=== PATIENT | female | born 1960 | race Caucasian/White ===

== ENCOUNTER 2017-03-21 21:04 | Emergency (ER) | payer MEDICARE, MEDICAID ==
[2017-03-21] MEDS ORDERED: Sodium Chloride 0.9% 10 ML Syringe FLUSH PRN (21:10)
[2017-03-21] MEDS ORDERED: Sodium Chloride 0.9% 1,000 ML IV SCH (21:15)
[2017-03-21 21:24] VITALS: BP 157/117
--- NOTE | 2017-03-21 21:40 | CT ---
Head CT Technique: Multiple axial sections through the brain were obtained. Intravenous contrast was not utilized. Comparison: Previous head CT study of 04/23/16. Findings: Ventricles along with basal cisterns and sulci over the convexities appear within normal limits for the patient's age. Mild diminished density is noted within the periventricular white matter compatible with small vessel ischemic demyelination change. Similar areas of low density are scattered within the basal ganglia. No other abnormal parenchymal densities are seen. No evidence of intracranial hemorrhage. No midline shift or mass effect is seen. Bone window settings were reviewed which shows mild mucosal thickening within the ethmoid and frontal sinuses. Soft tissue density is seen within a portion of the left side of the mastoid sinus. These findings are stable from previous head CT study and likely are chronic. No acute intracranial abnormality is appreciated. Impression: 1. Mild senescent change as described above. 2. Sinus findings which appears to be chronic. 3. Nothing acute is appreciated on noncontrast head CT study. Diagnostic code #2
[2017-03-21 22:41] LABS: ACETAMINOPHEN 0 ug/mL (10-30)
[2017-03-21] MEDS ORDERED: Levofloxacin/Dextrose 5%-Water 750 MG in Premix Bag 1 BAG IV ONE (23:25)
[2017-03-21] MEDS ORDERED: Albuterol/Ipratropium 3.0-0.5 MG/3 ML Neb Soln NEB ONE (23:26)
[2017-03-21] MEDS ORDERED: Iopamidol 755 Mg/ML 100 ML Bottle IVPUSH ONE (23:29)
[2017-03-21] MEDS ORDERED: Sodium Chloride 0.9% 10 ML Syringe FLUSH ONE (23:29)
[2017-03-21] MEDS ORDERED: Sodium Chloride 0.9% 100 ML IV SCH (23:30)
[2017-03-21] MEDS ORDERED: Sodium Chloride 0.9% 1,000 ML IV ONE (23:42)
--- NOTE | 2017-03-22 00:48 | EDM.PDOC ---
ED HPI GENERAL MEDICAL PROBLEM - General Chief Complaint: Neurological Problem Stated Complaint: [facility] Time Seen by Provider: 03/21/17 21:09 Source of Information: Reports: Patient, EMS, Family History Limitations: Reports: Other (Sleepy) - History of Present Illness INITIAL COMMENTS - FREE TEXT/NARRATIVE: The patient was last known well at 8am on 03/21/17. She has a history of a stroke and a AAA with repair. Her family went to check on her about 1pm today and she was very hard to arouse. This evening they tried again and she was very hard to arouse. The were concerned she had a stroke. They called EMS and [facility] brought her in. Her oxygen saturations were low and they put her on some oxygen. She has a wet cough. She has no fever. She is hard to arouse but when she is awakened she will answer all questions and follow commands. She has no chest pain but she does feel short of breath. She has some generalized abdominal pain. She has no nausea or vomiting. She has no pain with urination. Onset: Gradual Duration: Hour(s): Location: Reports: Generalized (weakness) Improves with: Reports: None Worsens with: Reports: None Associated Symptoms: Reports: Cough, cough w sputum, Shortness of Breath. Denies: Chest Pain, Fever/Chills, Loss of Appetite, Nausea/Vomiting - Related Data Allergies Allergy/AdvReac Type Severity Reaction Status Date / Time Penicillins Allergy Shortness Verified 03/22/17 01:58 of Breath Sulfa (Sulfonamide Allergy Rash Verified 03/22/17 01:58 Antibiotics) Home Meds: Home Meds amLODIPine Besylate [Amlodipine Besylate] 5 mg PO DAILY 03/25/15 [History] Gabapentin [Neurontin] 400 mg PO BID 06/22/15 [History] Losartan Potassium [Cozaar] 100 mg PO DAILY 06/22/15 [History] Potassium Chloride 10 meq PO BID 06/22/15 [History] Sertraline [Zoloft] 50 mg PO DAILY 06/22/15 [History] Solifenacin Succinate [Vesicare] 10 mg PO DAILY 06/22/15 [History] cloNIDine [Catapres-TTS 3] 0.3 mg TOP WEEKLY 06/22/15 [History] levETIRAcetam [Keppra] 250 mg PO DAILY 06/22/15 [History] Albuterol [Proventil HFA] 2 puff INH ASDIRECTED 03/21/17 [History] Baclofen 10 mg PO TID 03/21/17 [History] Clopidogrel [Plavix] 75 mg PO DAILY 03/21/17 [History] Doxycycline Monohydrate 100 mg PO DAILY 03/21/17 [History] Gabapentin [Neurontin] 800 mg PO BEDTIME 03/21/17 [History] Hydrocodone/Acetaminophen [Hydrocodon-Acetaminophn 10-325] 1 tab PO TID [History] Mirtazapine 30 mg PO BEDTIME 03/21/17 [History] Promethazine [Phenergan] 25 mg PO BID 03/21/17 [History] atorvaSTATin [Lipitor] 40 mg PO DAILY 03/21/17 [History] Past Medical History Other HEENT History: wears eyeglasses Cardiovascular History: Reports: Blood Clots/VTE/DVT, Hypertension Respiratory History: Reports: Bronchitis, Recurrent Other Respiratory History: Unable to assess as pt is unresponsive, this information entered by ED. Other OB/BYN History: Unable to assess as pt is unresponsive, this information entered by ED. Other Musculoskeletal History: Unable to assess as pt is unresponsive, this information entered by ED. Neurological History: Reports: Cerebral Aneurysms Other Neuro History: Unable to assess as pt is unresponsive, this information entered by ED. Psychiatric History: Reports: Depression Other Psychiatric History: Unable to assess as pt is unresponsive, this information entered by ED. Other Endocrine/Metabolic History: Unable to assess as pt is unresponsive, this information entered by ED. Other Hematologic History: Unable to assess as pt is unresponsive, this information entered by ED. Other Immunologic History: Unable to assess as pt is unresponsive, this information entered by ED. Other Dermatologic History: Unable to assess as pt is unresponsive, this information entered by ED. - Infectious Disease History Infectious Disease History: Reports: MRSA - Past Surgical History Other Respiratory Surgeries/Procedures: Unable to assess as pt is unresponsive, this information entered by ED. GI Surgical History: Reports: Other (See Below) Other GI Surgeries/Procedures: mesh surgery Musculoskeletal Surgical History: Reports: Other (See Below) Other Musculoskeletal Surgeries/Procedures:: surgery to ankle Other Oncologic Surgeries/Procedures: Unable to assess as pt is unresponsive, this information entered by ED. Social & Family History - Tobacco Use Smoking Status *Q: Current Every Day Smoker Years of Tobacco use: 30 Packs/Tins Daily: 0.5 Used Tobacco, but Quit: No - Caffeine Use Caffeine Use: Reports: None - Recreational Drug Use Recreational Drug Use: No ED ROS GENERAL - Review of Systems Review Of Systems: See Below Constitutional: Reports: Weakness. Denies: Fever, Chills HEENT: Reports: No Symptoms Respiratory: Reports: Shortness of Breath, Cough Cardiovascular: Reports: No Symptoms Endocrine: Reports: No Symptoms GI/Abdominal: Reports: No Symptoms : Reports: No Symptoms Musculoskeletal: Reports: No Symptoms Skin: Reports: No Symptoms Neurological: Reports: Weakness (Generalized) - Physical Exam Exam: See Below Exam Limited By: No Limitations General Appearance: Other (Sleepy but she will arouse and answer questions) Ears: Normal External Exam Nose: Normal Inspection Head Exam: Atraumatic, Normocephalic Neck: Normal Inspection Respiratory/Chest: No Respiratory Distress, Rhonchi Cardiovascular: Regular Rate, Rhythm, No Edema, No Murmur GI/Abdominal: Soft, Non-Tender, No Organomegaly, No Mass Neuro Exam (Abbreviated): Other (Sleepy) EKG INTERPRETATION EKG Date: 03/22/17 Time: 21:08 Rhythm: NSR Rate (beats/min): 85 Lulu: LAD-left axis deviation P-wave: present QRS: normal ST-T: normal QT: normal Course - Vital Signs Last Recorded V/S: Last Vital Signs Temp 98.7 F 03/21/17 21:06 Pulse 87 03/21/17 21:06 Resp 18 03/21/17 21:06 BP 157/117 H 03/21/17 21:06 Pulse Ox 95 03/21/17 23:36 - Orders/Labs/Meds Orders: Active Orders 24 hr Category Date Time Status Cardiac Monitoring [RC] . DIRECTED Care 03/21/17 21:10 Active EKG Documentation Completion [RC] STAT Care 03/21/17 21:11 Active Oxygen Therapy [RC] PRN Care 03/21/17 21:10 Active Peripheral IV Care [RC] . DIRECTED Care 03/21/17 21:11 Active RT Aerosol Therapy [RC] ASDIRECTED Care 03/21/17 23:26 Active Chest 1V Frontal [CR] Stat Exams 03/21/17 21:12 Taken Chest Abdomen Pelvis w Cont [CT] Stat Exams 03/21/17 22:58 Taken CULTURE BLOOD [BC] Stat Lab 03/21/17 23:40 Received CULTURE BLOOD [BC] Stat Lab 03/21/17 23:40 Received Sodium Chloride 0.9% [Normal Saline] 1,000 ml Med 03/21/17 21:15 Active IV ASDIRECTED Sodium Chloride 0.9% [Normal Saline] 100 ml Med 03/21/17 23:30 Active IV ASDIRECTED Sodium Chloride 0.9% [Saline Flush] Med 03/21/17 21:10 Active 10 ml FLUSH ASDIRECTED PRN Blood Culture x2 Reflex Set [OM.PC] Stat Oth 03/21/17 23:25 Ordered Peripheral IV Insertion Adult [OM.PC] Stat Oth 03/21/17 21:10 Ordered Medication Orders Sodium Chloride (Normal Saline) 1,000 mls @ 125 mls/hr IV ASDIRECTED VIKAS Last Admin: 03/21/17 22:23 Dose: 125 mls/hr Sodium Chloride (Normal Saline) 100 mls @ 60 mls/hr IV ASDIRECTED VIKAS Last Admin: 03/22/17 00:11 Dose: 60 mls/hr Sodium Chloride (Saline Flush) 10 ml FLUSH ASDIRECTED PRN PRN Reason: Keep Vein Open Last Admin: 03/21/17 22:23 Dose: 10 ml Labs: Laboratory Tests 03/21/17 03/21/17 03/21/17 Range/Units 21:30 22:05 22:15 WBC 11.83 H (3.98-10.04) K/mm3 RBC 4.64 (3.98-5.22) M/mm3 Hgb 13.8 (11.2-15.7) gm/L Hct 43.4 (34.1-44.9) % MCV 93.5 (79.4-94.8) fl MCH 29.7 (25.6-32.2) pg MCHC 31.8 L (32.2-35.5) g/dl RDW Std Deviation 48.1 H (36.4-46.3) fL Plt Count 209 (182-369) K/mm3 MPV 11.2 (9.4-12.3) fl Neut % (Auto) 83.0 H (34.0-71.1) % Lymph % (Auto) 9.5 L (19.3-51.7) % Holt % (Auto) 5.7 (4.7-12.5) % Eos % (Auto) 1.4 (0.7-5.8) Baso % (Auto) 0.1 (0.1-1.2) % Neut # (Auto) 9.82 H (1.56-6.13) K/mm3 Lymph # (Auto) 1.12 L (1.18-3.74) K/mm3 Holt # (Auto) 0.68 H (0.24-0.36) K/mm3 Eos # (Auto) 0.17 (0.04-0.36) K/mm3 Baso # (Auto) 0.01 (0.01-0.08) K/mm3 Manual Slide Review Abnormal smear Sodium 145 (136-145) mEq/L Potassium 4.0 (3.5-5.1) mEq/L Chloride 108 H (98-107) mEq/L Carbon Dioxide 24 (21-32) mEq/L Anion Gap 17.0 H (5-15) BUN 28 H (7-18) mg/dL Creatinine 1.2 H (0.55-1.02) mg/dL Est Cr Clr Drug Dosing TNP Estimated GFR (MDRD) 46 (>60) mL/min BUN/Creatinine Ratio 23.3 H (14-18) Glucose 105 (74-106) mg/dL POC Glucose 94 (70-105) mg/dL Lactic Acid (0.4-2.0) mmol/L Calcium 9.4 (8.5-10.1) mg/dL Total Bilirubin 0.3 (0.2-1.0) mg/dL AST 11 L (15-37) U/L ALT 13 L (14-59) U/L Alkaline Phosphatase 148 H (46-116) U/L Troponin I < 0.017 (0.00-0.056) ng/mL B-Natriuretic Peptide (0-100) pg/mL Total Protein 8.3 H (6.4-8.2) g/dl Albumin 3.5 (3.4-5.0) g/dl Globulin 4.8 gm/dL Albumin/Globulin Ratio 0.7 L (1-2) Urine Color (Yellow) Urine Appearance (Clear) Urine pH (5.0-8.0) Ur Specific [address] (1.005-1.030) Urine Protein (Negative) Urine Glucose (UA) (Negative) Urine Ketones (Negative) Urine Occult Blood (Negative) Urine Nitrite (Negative) Urine Bilirubin (Negative) Urine Urobilinogen (0.2-1.0) Ur Leukocyte Esterase (Negative) Urine RBC (0-5) /hpf Urine WBC (0-5) /hpf Ur Epithelial Cells (0-5) /hpf Urine Bacteria (FEW) /hpf Urine Mucus (FEW) /hpf Salicylates (2.8-20) mg/dL Urine Opiates Screen (NEGATIVE) Ur Buprenorphine Scrn (NEGATIVE) Ur Oxycodone Screen (NEGATIVE) Urine Methadone Screen (NEGATIVE) Ur Propoxyphene Screen (NEGATIVE) Acetaminophen 0 L (10-30) ug/mL Ur Barbiturates Screen (NEGATIVE) Ur Tricyclics Screen (NEGATIVE) Ur Phencyclidine Scrn (NEGATIVE) Ur Amphetamine Screen (NEGATIVE) U Methamphetamines Scrn (NEGATIVE) U Benzodiazepines Scrn (NEGATIVE) U Cocaine Metab Screen (NEGATIVE) U Marijuana (THC) Screen (NEGATIVE) Ethyl Alcohol 0.00 (0.00) gm% 03/21/17 03/21/17 03/21/17 Range/Units 22:15 22:15 22:15 WBC (3.98-10.04) K/mm3 RBC (3.98-5.22) M/mm3 Hgb (11.2-15.7) gm/L Hct (34.1-44.9) % MCV (79.4-94.8) fl MCH (25.6-32.2) pg MCHC (32.2-35.5) g/dl RDW Std Deviation (36.4-46.3) fL Plt Count (182-369) K/mm3 MPV (9.4-12.3) fl Neut % (Auto) (34.0-71.1) % Lymph % (Auto) (19.3-51.7) % Holt % (Auto) (4.7-12.5) % Eos % (Auto) (0.7-5.8) Baso % (Auto) (0.1-1.2) % Neut # (Auto) (1.56-6.13) K/mm3 Lymph # (Auto) (1.18-3.74) K/mm3 Holt # (Auto) (0.24-0.36) K/mm3 Eos # (Auto) (0.04-0.36) K/mm3 Baso # (Auto) (0.01-0.08) K/mm3 Manual Slide Review Sodium (136-145) mEq/L Potassium (3.5-5.1) mEq/L Chloride (98-107) mEq/L Carbon Dioxide (21-32) mEq/L Anion Gap (5-15) BUN (7-18) mg/dL Creatinine (0.55-1.02) mg/dL Est Cr Clr Drug Dosing Estimated GFR (MDRD) (>60) mL/min BUN/Creatinine Ratio (14-18) Glucose (74-106) mg/dL POC Glucose (70-105) mg/dL Lactic Acid 1.5 (0.4-2.0) mmol/L Calcium (8.5-10.1) mg/dL Total Bilirubin (0.2-1.0) mg/dL AST (15-37) U/L ALT (14-59) U/L Alkaline Phosphatase (46-116) U/L Troponin I (0.00-0.056) ng/mL B-Natriuretic Peptide 29 (0-100) pg/mL Total Protein (6.4-8.2) g/dl Albumin (3.4-5.0) g/dl Globulin gm/dL Albumin/Globulin Ratio (1-2) Urine Color (Yellow) Urine Appearance (Clear) Urine pH (5.0-8.0) Ur Specific [address] (1.005-1.030) Urine Protein (Negative) Urine Glucose (UA) (Negative) Urine Ketones (Negative) Urine Occult Blood (Negative) Urine Nitrite (Negative) Urine Bilirubin (Negative) Urine Urobilinogen (0.2-1.0) Ur Leukocyte Esterase (Negative) Urine RBC (0-5) /hpf Urine WBC (0-5) /hpf Ur Epithelial Cells (0-5) /hpf Urine Bacteria (FEW) /hpf Urine Mucus (FEW) /hpf Salicylates 7.8 (2.8-20) mg/dL Urine Opiates Screen (NEGATIVE) Ur Buprenorphine Scrn (NEGATIVE) Ur Oxycodone Screen (NEGATIVE) Urine Methadone Screen (NEGATIVE) Ur Propoxyphene Screen (NEGATIVE) Acetaminophen (10-30) ug/mL Ur Barbiturates Screen (NEGATIVE) Ur Tricyclics Screen (NEGATIVE) Ur Phencyclidine Scrn (NEGATIVE) Ur Amphetamine Screen (NEGATIVE) U Methamphetamines Scrn (NEGATIVE) U Benzodiazepines Scrn (NEGATIVE) U Cocaine Metab Screen (NEGATIVE) U Marijuana (THC) Screen (NEGATIVE) Ethyl Alcohol (0.00) gm% 03/21/17 03/21/17 Range/Units 22:24 22:24 WBC (3.98-10.04) K/mm3 RBC (3.98-5.22) M/mm3 Hgb (11.2-15.7) gm/L Hct (34.1-44.9) % MCV (79.4-94.8) fl MCH (25.6-32.2) pg MCHC (32.2-35.5) g/dl RDW Std Deviation (36.4-46.3) fL Plt Count (182-369) K/mm3 MPV (9.4-12.3) fl Neut % (Auto) (34.0-71.1) % Lymph % (Auto) (19.3-51.7) % Holt % (Auto) (4.7-12.5) % Eos % (Auto) (0.7-5.8) Baso % (Auto) (0.1-1.2) % Neut # (Auto) (1.56-6.13) K/mm3 Lymph # (Auto) (1.18-3.74) K/mm3 Holt # (Auto) (0.24-0.36) K/mm3 Eos # (Auto) (0.04-0.36) K/mm3 Baso # (Auto) (0.01-0.08) K/mm3 Manual Slide Review Sodium (136-145) mEq/L Potassium (3.5-5.1) mEq/L Chloride (98-107) mEq/L Carbon Dioxide (21-32) mEq/L Anion Gap (5-15) BUN (7-18) mg/dL Creatinine (0.55-1.02) mg/dL Est Cr Clr Drug Dosing Estimated GFR (MDRD) (>60) mL/min BUN/Creatinine Ratio (14-18) Glucose (74-106) mg/dL POC Glucose (70-105) mg/dL Lactic Acid (0.4-2.0) mmol/L Calcium (8.5-10.1) mg/dL Total Bilirubin (0.2-1.0) mg/dL AST (15-37) U/L ALT (14-59) U/L Alkaline Phosphatase (46-116) U/L Troponin I (0.00-0.056) ng/mL B-Natriuretic Peptide (0-100) pg/mL Total Protein (6.4-8.2) g/dl Albumin (3.4-5.0) g/dl Globulin gm/dL Albumin/Globulin Ratio (1-2) Urine Color Yellow (Yellow) Urine Appearance Clear (Clear) Urine pH 5.5 (5.0-8.0) Ur Specific [address] 1.020 (1.005-1.030) Urine Protein Negative (Negative) Urine Glucose (UA) Negative (Negative) Urine Ketones Negative (Negative) Urine Occult Blood Negative (Negative) Urine Nitrite Negative (Negative) Urine Bilirubin Negative (Negative) Urine Urobilinogen 0.2 (0.2-1.0) Ur Leukocyte Esterase Negative (Negative) Urine RBC Not seen (0-5) /hpf Urine WBC 0-5 (0-5) /hpf Ur Epithelial Cells 0-5 (0-5) /hpf Urine Bacteria Few (FEW) /hpf Urine Mucus Few (FEW) /hpf Salicylates (2.8-20) mg/dL Urine Opiates Screen Presumptive positive H (NEGATIVE) Ur Buprenorphine Scrn Negative (NEGATIVE) Ur Oxycodone Screen Negative (NEGATIVE) Urine Methadone Screen Negative (NEGATIVE) Ur Propoxyphene Screen Negative (NEGATIVE) Acetaminophen (10-30) ug/mL Ur Barbiturates Screen Negative (NEGATIVE) Ur Tricyclics Screen Negative (NEGATIVE) Ur Phencyclidine Scrn Negative (NEGATIVE) Ur Amphetamine Screen Negative (NEGATIVE) U Methamphetamines Scrn Negative (NEGATIVE) U Benzodiazepines Scrn Negative (NEGATIVE) U Cocaine Metab Screen Negative (NEGATIVE) U Marijuana (THC) Screen Negative (NEGATIVE) Ethyl Alcohol (0.00) gm% Meds: Medications Generic Name Dose Route Start Last Admin Trade Name Freq PRN Reason Stop Dose Admin Sodium Chloride 1,000 mls @ 125 mls/hr 03/21/17 21:15 03/21/17 22:23 Normal Saline IV 125 mls/hr ASDIRECTED VIKAS Administration Sodium Chloride 100 mls @ 60 mls/hr 03/21/17 23:30 03/22/17 00:11 Normal Saline IV 60 mls/hr ASDIRECTED VIKAS Administration Sodium Chloride 10 ml 03/21/17 21:10 03/21/17 22:23 Saline Flush FLUSH 10 ml ASDIRECTED PRN Administration Keep Vein Open Discontinued Medications Generic Name Dose Route Start Last Admin Trade Name Ivon PRN Reason Stop Dose Admin Albuterol/Ipratropium 3 ml 03/21/17 23:26 03/21/17 23:36 Duoneb 3.0-0.5 Mg/3 Ml NEB 03/21/17 23:27 3 ml ONETIME ONE Administration Levofloxacin/Dextrose 750 mg/ 150 mls @ 100 mls/hr 03/21/17 23:25 03/22/17 00 :23 Premix IV 03/22/17 00:54 100 mls/hr ONETIME ONE Administration Sodium Chloride 1,000 mls @ 1,000 mls/hr 03/21/17 23:42 03/22/17 00:22 Normal Saline IV 03/22/17 00:41 1,000 mls/hr ONETIME ONE Administration Iopamidol 100 ml 03/21/17 23:29 03/22/17 00:11 Isovue-370 (76%) IVPUSH 03/21/17 23:30 100 ml ONETIME ONE Administration Sodium Chloride 10 ml 03/21/17 23:29 03/22/17 00:11 Saline Flush FLUSH 03/21/17 23:30 10 ml ONETIME ONE Administration - Re-Assessments/Exams Free Text/Narrative Re-Assessment/Exam: 03/22/17 00:51 I ordered an IV NS bolus, EKG, CXR, CT of the head, labs and UA. 03/22/17 03:35 Her EKG shows a NSR with no acute changes. Her CXR shows an infiltrate in the left lower lung. Her WBC was elevated at 11.83. I ordered blood cultures, duo neb and levaquin 750mg IV. The CT of her head shows mild senscent changes, sinus findings which appear to be chronic, and nothing acute is appreciated on noncontrast head CT study. Her creatinine was slightly elevated at 1.2. Her anion gap was 17. Her Alk Phos was elevated at 148. Her troponin was negative. Her UA shows no UTI. Her UDS was positive for opiates. She is on hydrocodone. Her ETOH was negative. Her salicylates were negative. I am concerned about her aorta because of the abdominal pain. I ordered a CT angio of her aorta. The CT angio of her abdomen and pelvis shows saccular aneurysmal dilatation of the suprarenal abdominal aorta. 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 There is a Fem-Fem bypass graft with reconstitution of flow within the right common femoral artery. Compression fracture of the superior endplate of L1. Incomplete urinary bladder distention with prominent wall. Correlation for cystitis. She does have bilateral pulses in both feet that are weak and she has warm legs. She has bilateral weakness in both legs. The CT angio of her chest shows aneurysmal enlargement of the thoracic aorta at the level of the oartic arch which measures up to 4.6cm. Aneurysmal enlargement of the descending thoracic aorta which measures up to 6.7cm in maximal AP dimension with large amount of intramural thrombus. Dimensions are significantly increased compared to the prior study from 03/25/2015. This puts the patient at increased risk of rupture and dissection. Peripheral inerstitial fibrosis with possible mild pulmonary edema versus multifocal pneumonia. Compression fractures of the superior endplate of T5 and T7. Her BPs did go down a few times when she was here. The lowest was 76 systolic. She did respond to fluids and her BP now is 116/89. I feel she needs to be admitted. I called [facility] in [place] and Dr Israel accepted the patient. 03/22/17 04:02 Departure - Departure Time of Disposition: 04:00 Disposition: DC/Tfer to Acute Hospital 02 Condition: serious Clinical Impression: Thrombus of aorta, Bilateral leg weakness Pneumonia Qualifiers: Pneumonia type: due to unspecified organism Laterality: left Lung location: lower lobe of lung Qualified Code(s): J18.1 - Lobar pneumonia, unspecified organism Thoracic aortic aneurysm Qualifiers: Presence of rupture: without rupture Qualified Code(s): I71.2 - Thoracic aortic aneurysm, without rupture Altered mental state Qualifiers: Altered mental status type: somnolence Qualified Code(s): R40.0 - Somnolence - Discharge Information Forms: ED Department Discharge - My Orders Last 24 Hours: My Active Orders 03/21/17 21:10 Cardiac Monitoring [RC] . DIRECTED Oxygen Therapy [RC] PRN Sodium Chloride 0.9% [Saline Flush] 10 ml FLUSH ASDIRECTED PRN Peripheral IV Insertion Adult [OM.PC] Stat 03/21/17 21:11 EKG Documentation Completion [RC] STAT Peripheral IV Care [RC] . DIRECTED 03/21/17 21:12 Chest 1V Frontal [CR] Stat 03/21/17 21:15 Sodium Chloride 0.9% [Normal Saline] 1,000 ml IV ASDIRECTED 03/21/17 22:58 Chest Abdomen Pelvis w Cont [CT] Stat 03/21/17 23:25 Blood Culture x2 Reflex Set [OM.PC] Stat 03/21/17 23:26 RT Aerosol Therapy [RC] ASDIRECTED 03/21/17 23:30 Sodium Chloride 0.9% [Normal Saline] 100 ml IV ASDIRECTED 03/21/17 23:40 CULTURE BLOOD [BC] Stat CULTURE BLOOD [BC] Stat - Assessment/Plan Last 24 Hours: My Active Orders 03/21/17 21:10 Cardiac Monitoring [RC] . DIRECTED Oxygen Therapy [RC] PRN Sodium Chloride 0.9% [Saline Flush] 10 ml FLUSH ASDIRECTED PRN Peripheral IV Insertion Adult [OM.PC] Stat 03/21/17 21:11 EKG Documentation Completion [RC] STAT Peripheral IV Care [RC] . DIRECTED 03/21/17 21:12 Chest 1V Frontal [CR] Stat 03/21/17 21:15 Sodium Chloride 0.9% [Normal Saline] 1,000 ml IV ASDIRECTED 03/21/17 22:58 Chest Abdomen Pelvis w Cont [CT] Stat 03/21/17 23:25 Blood Culture x2 Reflex Set [OM.PC] Stat 03/21/17 23:26 RT Aerosol Therapy [RC] ASDIRECTED 03/21/17 23:30 Sodium Chloride 0.9% [Normal Saline] 100 ml IV ASDIRECTED 03/21/17 23:40 CULTURE BLOOD [BC] Stat CULTURE BLOOD [BC] Stat
--- NOTE | 2017-03-23 07:40 | CT ---
CT chest Technique: Multiple axial sections were obtained from above the lung apices inferiorly through the lung bases. Intravenous contrast was utilized. Study performed as an aortic dissection protocol. Comparison: Previous chest CT performed as a pulmonary angiogram protocol dated 03/25/15. Findings: Mild diffuse aneurysmal dilatation of the ascending aorta is seen with AP dimension up to 4.3 cm. Slightly asymmetric aneurysmal dilatation at the aortic arch is seen with maximum measurement of 4.6 cm. Distal thoracic aorta shows aneurysmal dilatation with mural clot. This aneurysm measures 6.6 cm. Aneurysm measurements have increased from previous chest CT. No dissection is seen. Several small mediastinal lymph nodes are seen which appear stable. Mild coronary artery calcification is seen. No pericardial effusion is seen. Right hilar lymph node is seen which is believed to be stable. Stable 7 mm nodule within the left upper chest from prior exam which is likely incidental. Diffuse interstitial changes are seen within the lungs believed to represent fibrosis. Several slight compression deformities within the thoracic spine which appear to be old. Impression: 1. Increasing thoracic aortic aneurysm when compared to prior chest CT of 03/25/15. Maximum aneurysmal dilatation of the descending aorta is 6.6 cm. This measured 5.5 cm on prior study. 2. Interstitial changes within both lungs most likely representing fibrosis although difficult to exclude mild superimposed pulmonary vascular congestion. 3. No dissection is seen within the aneurysm at this time. Diagnostic code #5 Agree with preliminary report issued by [employer] (preliminary report dictated on 03/22/17, 3:19 AM Central Time) CT abdomen and pelvis Technique: Multiple axial sections were obtained from above the liver inferiorly through the pubic symphysis. Intravenous contrast was utilized. No oral contrast has been given. Comparison: Previous CT abdomen and pelvis exam of 12/31/13 is available. Findings: Aorta at the diaphragmatic hiatus measures 4.2 cm. On previous study this measures about 3.7 cm in similar measurement plane. Mid aorta measures about 3.9 cm. This measures approximately 2.9 cm on previous study. Distal aorta measures 3.4 cm comparing to 3.2 cm on prior study. 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 There is a femorofemoral graft from the left side. No dissection is seen. Liver is mostly in a noncontrast appearance given the arterial contrast. No discrete abnormality seen within the liver. Spleen appears within normal limits. Adrenal glands show no nodule. Kidneys show vascular calcification with symmetric contrast enhancement. No hydronephrosis or mass is seen. Pancreas appears within normal limits. Gallbladder shows no calcified gallstones. No retroperitoneal adenopathy or mesenteric abnormalities are seen. No pelvic mass or adenopathy is seen. Previous abdominal wall surgery is seen. Appendix is visualized and is unremarkable. Degenerative change scattered within the spine. Moderate compression deformity is seen of L1 which is an interval change from prior CT exam. Impression: 1. Diffuse aneurysmal dilatation of the abdominal aorta. Measurements have increased in size from prior CT exam. 2. Compression deformity of L1 which is an interval change from prior exam. 3. Other incidental findings. Diagnostic code #3 I agree with preliminary report issued by [employer] (preliminary report dictated on 03/22/17, 3:56 AM Central Time)
--- NOTE | 2017-03-23 07:40 | CR ---
Chest: Portable view of the chest was obtained. Comparison: Previous chest x-ray of 04/24/16. Tortuous thoracic aorta is seen. Lung markings increased which appear to be chronic. No acute infiltrates are seen. Heart is enlarged. Bony structures are osteopenic. Impression: 1. Increased lung markings believed to be chronic. Nothing acute is definitely seen on portable chest x-ray. Diagnostic code #2
== END 2017-03-22 04:08 ==
LOC: JD.ED 21:04
DX: I71.2 Thoracic aortic aneurysm, without rupture (principal); R40.0 Somnolence; R53.1 Weakness; F17.210 Nicotine dependence, cigarettes, uncomplicated; F32.9 Major depressive disorder, single episode, unspecified; J18.1 Lobar pneumonia, unspecified organism; I10 Essential (primary) hypertension; Z88.0 Allergy status to penicillin; Z88.2 Allergy status to sulfonamides; Z79.899 Other long term (current) drug therapy
CPT/HCPCS: 36415; 70450; 71010; 71260; 74177; 80053; 80306; 81001; 82962; 83605; 83880; 84484; 85025; 87040; 93005; 94664; 96361; 96365; 96366; 99285; G0480; J1956; J7030; J7040; J7050; P9612; Q9967; 99284

== ENCOUNTER 2018-01-06 14:12 | Inpatient (IN) | payer MEDICARE, MEDICAID ==
[~2018-01-06 14:12] MED LIST: Modafinil 200 MG Tab PO ONE
[2018-01-06] MEDS ORDERED: Sodium Chloride 0.9% 10 ML Syringe FLUSH PRN (14:24)
[2018-01-06] MEDS ORDERED: Albuterol/Ipratropium 3.0-0.5 MG/3 ML Neb Soln NEB ONE (14:27)
[2018-01-06] MEDS ORDERED: Sodium Chloride 0.9% 1,000 ML IV SCH (14:30)
--- NOTE | 2018-01-06 14:30 | EDM.PDOC ---
ED HPI GENERAL MEDICAL PROBLEM - General Chief Complaint: Respiratory Problem Stated Complaint: [facility] Time Seen by Provider: 01/06/18 14:24 Source of Information: Reports: EMS History Limitations: Reports: Altered Mental Status - History of Present Illness INITIAL COMMENTS - FREE TEXT/NARRATIVE: The patient presents by [facility]. They intercepted with family members who had the patient in a vehicle. The family found her unresponsive at her home. When EMS intercepted the patient would moan to pain but then would answer some questions. When she arrived here she would not talk much, she would follow minimal commands. She could move all 4 extremities. She was just discharged last week from our hospital for pneumonia and sepsis. Her oxygen saturations were low when they picked her up. Onset: Gradual Duration: Hour(s): Severity: Moderate Improves with: Reports: None Worsens with: Reports: None Associated Symptoms: Reports: Confusion, Cough, Shortness of Breath. Denies: Fever/Chills, Nausea/Vomiting - Related Data Allergies Allergy/AdvReac Type Severity Reaction Status Date / Time Penicillins Allergy Shortness Verified 01/06/18 14:36 of Breath Sulfa (Sulfonamide Allergy Rash Verified 01/06/18 14:36 Antibiotics) Home Meds: Home Meds amLODIPine Besylate [Amlodipine Besylate] 5 mg PO DAILY 03/25/15 [History] Gabapentin [Neurontin] 400 mg PO 0800,1700 06/22/15 [History] Losartan Potassium [Cozaar] 100 mg PO DAILY 06/22/15 [History] Potassium Chloride 10 meq PO BID 06/22/15 [History] Solifenacin Succinate [Vesicare] 10 mg PO BEDTIME 06/22/15 [History] cloNIDine [Catapres-TTS 3] 0.3 mg TOP SA 06/22/15 [History] levETIRAcetam [Keppra] 250 mg PO BID 06/22/15 [History] Baclofen 10 mg PO TID 03/21/17 [History] Clopidogrel [Plavix] 75 mg PO DAILY 03/21/17 [History] Gabapentin [Neurontin] 600 mg PO QID 03/21/17 [History] Hydrocodone/Acetaminophen [Hydrocodon-Acetaminophn 10-325] 1 tab PO TID [History] Mirtazapine 30 mg PO BEDTIME 03/21/17 [History] Promethazine [Phenergan] 25 mg PO BID PRN 03/21/17 [History] atorvaSTATin [Lipitor] 40 mg PO DAILY 03/21/17 [History] Albuterol [Proventil HFA] 2 puff INH QID PRN 12/29/17 [History] Fluticasone/Salmeterol [Advair 250-50] 1 inh INH BID 12/29/17 [History] L.acidoph,Paracasei, B.lactis [Probiotic] 1 tab PO DAILY 12/29/17 [History] Loratadine 10 mg PO BEDTIME 12/29/17 [History] Polyethylene Glycol 3350 [Miralax] 17 gm PO DAILY PRN 12/29/17 [History] Tiotropium [Spiriva HandiHaler] 1 cap INH DAILY 12/29/17 [History] Levofloxacin [Levaquin] 750 mg PO DAILY 5 Days #5 tab 01/02/18 [Rx] Doxycycline [Doxycycline Monohydrate] 100 mg PO BID 01/06/18 [History] Sertraline HCl [Zoloft] 50 mg PO DAILY 01/06/18 [History] tiZANidine [Zanaflex] 4 mg PO ASDIRECTED 01/06/18 [History] Past Medical History Other HEENT History: wears eyeglasses Cardiovascular History: Reports: Blood Clots/VTE/DVT, Hypertension Respiratory History: Reports: Bronchitis, Recurrent, COPD, Croup, Pneumonia, Recurrent, SOB Other Respiratory History: Unable to assess as pt is unresponsive, this information entered by ED. Gastrointestinal History: Reports: GERD Genitourinary History: Reports: None Other OB/BYN History: Unable to assess as pt is unresponsive, this information entered by ED. Other Musculoskeletal History: Unable to assess as pt is unresponsive, this information entered by ED. Neurological History: Reports: Cerebral Aneurysms, CVA Other Neuro History: Unable to assess as pt is unresponsive, this information entered by ED. Psychiatric History: Reports: Depression Other Psychiatric History: Unable to assess as pt is unresponsive, this information entered by ED. Endocrine/Metabolic History: Reports: None Other Endocrine/Metabolic History: Unable to assess as pt is unresponsive, this information entered by ED. Hematologic History: Reports: None Other Hematologic History: Unable to assess as pt is unresponsive, this information entered by ED. Immunologic History: Reports: None Other Immunologic History: Unable to assess as pt is unresponsive, this information entered by ED. Oncologic (Cancer) History: Reports: None Dermatologic History: Reports: None Other Dermatologic History: Unable to assess as pt is unresponsive, this information entered by ED. - Infectious Disease History Infectious Disease History: Reports: MRSA - Past Surgical History GI Surgical History: Reports: Other (See Below) Other GI Surgeries/Procedures: mesh surgery Musculoskeletal Surgical History: Reports: Other (See Below) Other Musculoskeletal Surgeries/Procedures:: surgery to ankle Social & Family History - Tobacco Use Smoking Status *Q: Current Every Day Smoker Years of Tobacco use: 25 Packs/Tins Daily: 1 Used Tobacco, but Quit: No Second Hand Smoke Exposure: No - Caffeine Use Caffeine Use: Reports: None - Recreational Drug Use Recreational Drug Use: No ED ROS GENERAL - Review of Systems Review Of Systems: Unable To Obtain ED EXAM, GENERAL - Physical Exam Exam: See Below Exam Limited By: No Limitations General Appearance: Lethargic Ears: Normal External Exam Nose: Normal Inspection Head: Atraumatic, Normocephalic Neck: Normal Inspection Respiratory/Chest: No Respiratory Distress, Wheezing Cardiovascular: Regular Rate, Rhythm, No Edema, No Murmur GI/Abdominal: Soft, Non-Tender, No Organomegaly, No Mass Back Exam: Normal Inspection Extremities: Normal Inspection Neurological: Other (The patient was lethargic but she will now answer questions. She will also follow commands. She moves all 4 extremities.) EKG INTERPRETATION EKG Date: 01/06/18 Time: 14:21 Rhythm: NSR Rate (Beats/Min): 70 [place]: Normal P-Wave: Present QRS: Normal ST-T: Other (Flattened T waves in the anterolateral leads) QT: Normal Course - Vital Signs Last Recorded V/S: Last Vital Signs Temp 98.1 F 01/06/18 14:25 Pulse 78 01/06/18 14:25 Resp 24 H 01/06/18 14:25 BP 125/101 H 01/06/18 14:25 Pulse Ox 95 01/06/18 16:51 - Orders/Labs/Meds Orders: Active Orders 24 hr Category Date Time Status Cardiac Monitoring [RC] . DIRECTED Care 01/06/18 14:24 Active EKG Documentation Completion [RC] STAT Care 01/06/18 14:25 Active Oxygen Therapy [RC] PRN Care 01/06/18 14:24 Active Peripheral IV Care [RC] . DIRECTED Care 01/06/18 14:25 Active RT Aerosol Therapy [RC] ASDIRECTED Care 01/06/18 14:27 Active Chest 1V Frontal [CR] Stat Exams 01/06/18 14:25 Taken CULTURE BLOOD [BC] Stat Lab 01/06/18 16:55 Received CULTURE BLOOD [BC] Stat Lab 01/06/18 17:05 Received Sodium Chloride 0.9% [Normal Saline] 1,000 ml Med 01/06/18 14:30 Active IV ASDIRECTED Sodium Chloride 0.9% [Saline Flush] Med 01/06/18 14:24 Active 10 ml FLUSH ASDIRECTED PRN Blood Culture x2 Reflex Set [OM.PC] Stat Oth 01/06/18 16:12 Ordered Peripheral IV Insertion Adult [OM.PC] Stat Oth 01/06/18 14:24 Ordered Medication Orders Sodium Chloride (Normal Saline) 1,000 mls @ 125 mls/hr IV ASDIRECTED VIKAS Last Admin: 01/06/18 15:43 Dose: 125 mls/hr Sodium Chloride (Saline Flush) 10 ml FLUSH ASDIRECTED PRN PRN Reason: Keep Vein Open Last Admin: 01/06/18 15:44 Dose: 10 ml Labs: Laboratory Tests 01/06/18 01/06/18 01/06/18 Range/Units 14:30 14:30 14:30 WBC 10.92 H (3.98-10.04) K/mm3 RBC 3.49 L (3.98-5.22) M/mm3 Hgb 10.6 L (11.2-15.7) gm/L Hct 34.3 (34.1-44.9) % MCV 98.3 H (79.4-94.8) fl MCH 30.4 (25.6-32.2) pg MCHC 30.9 L (32.2-35.5) g/dl RDW Std Deviation 50.4 H (36.4-46.3) fL Plt Count 293 (182-369) K/mm3 MPV 10.9 (9.4-12.3) fl Neut % (Auto) 74.3 H (34.0-71.1) % Lymph % (Auto) 17.2 L (19.3-51.7) % [place] % (Auto) 5.2 (4.7-12.5) % Eos % (Auto) 2.0 (0.7-5.8) Baso % (Auto) 0.1 (0.1-1.2) % Neut # (Auto) 8.11 H (1.56-6.13) K/mm3 Lymph # (Auto) 1.88 (1.18-3.74) K/mm3 [place] # (Auto) 0.57 H (0.24-0.36) K/mm3 Eos # (Auto) 0.22 (0.04-0.36) K/mm3 Baso # (Auto) 0.01 (0.01-0.08) K/mm3 Manual Slide Review Abnormal smear Puncture Site ABG pH (7.35-7.45) ABG pCO2 (35.0-45.0) mmHg ABG pO2 (80.0-100.0) mmHg ABG HCO3 (22.0-26.0) meq/L ABG O2 Saturation (96.0-97.0) % ABG Base Excess (-2-2.0) A-a Gradient mmHg O2 Delivery Device Oxygen Flow Rate FiO2 (21.00-100.00) % Sodium 140 (136-145) mEq/L Potassium 3.9 (3.5-5.1) mEq/L Chloride 104 (98-107) mEq/L Carbon Dioxide 24 (21-32) mEq/L Anion Gap 15.9 H (5-15) BUN 20 H (7-18) mg/dL Creatinine 1.0 (0.55-1.02) mg/dL Est Cr Clr Drug Dosing 58.11 mL/min Estimated GFR (MDRD) 57 (>60) mL/min BUN/Creatinine Ratio 20.0 H (14-18) Glucose 89 (74-106) mg/dL Calcium 8.7 (8.5-10.1) mg/dL Total Bilirubin 0.3 (0.2-1.0) mg/dL AST 20 (15-37) U/L ALT 29 (14-59) U/L Alkaline Phosphatase 130 H (46-116) U/L Troponin I < 0.017 (0.00-0.056) ng/mL C-Reactive Protein 19.3 H* (<1.0) mg/dL Total Protein 7.3 (6.4-8.2) g/dl Albumin 2.3 L (3.4-5.0) g/dl Globulin 5.0 gm/dL Albumin/Globulin Ratio 0.5 L (1-2) Urine Color (Yellow) Urine Appearance (Clear) Urine pH (5.0-8.0) Ur Specific [place] (1.005-1.030) Urine Protein (Negative) Urine Glucose (UA) (Negative) Urine Ketones (Negative) Urine Occult Blood (Negative) Urine Nitrite (Negative) Urine Bilirubin (Negative) Urine Urobilinogen (0.2-1.0) Ur Leukocyte Esterase (Negative) Urine RBC (0-5) /hpf Urine WBC (0-5) /hpf Ur Epithelial Cells (0-5) /hpf Urine Bacteria (FEW) /hpf Urine Mucus (FEW) /hpf Urine Opiates Screen (NEGATIVE) Ur Buprenorphine Scrn (NEGATIVE) Ur Oxycodone Screen (NEGATIVE) Urine Methadone Screen (NEGATIVE) Ur Propoxyphene Screen (NEGATIVE) Ur Barbiturates Screen (NEGATIVE) Ur Tricyclics Screen (NEGATIVE) Ur Phencyclidine Scrn (NEGATIVE) Ur Amphetamine Screen (NEGATIVE) U Methamphetamines Scrn (NEGATIVE) U Benzodiazepines Scrn (NEGATIVE) U Cocaine Metab Screen (NEGATIVE) U Marijuana (THC) Screen (NEGATIVE) Ethyl Alcohol 0.00 (0.00) gm% 01/06/18 01/06/18 01/06/18 Range/Units 15:28 16:17 16:17 WBC (3.98-10.04) K/mm3 RBC (3.98-5.22) M/mm3 Hgb (11.2-15.7) gm/L Hct (34.1-44.9) % MCV (79.4-94.8) fl MCH (25.6-32.2) pg MCHC (32.2-35.5) g/dl RDW Std Deviation (36.4-46.3) fL Plt Count (182-369) K/mm3 MPV (9.4-12.3) fl Neut % (Auto) (34.0-71.1) % Lymph % (Auto) (19.3-51.7) % [place] % (Auto) (4.7-12.5) % Eos % (Auto) (0.7-5.8) Baso % (Auto) (0.1-1.2) % Neut # (Auto) (1.56-6.13) K/mm3 Lymph # (Auto) (1.18-3.74) K/mm3 [place] # (Auto) (0.24-0.36) K/mm3 Eos # (Auto) (0.04-0.36) K/mm3 Baso # (Auto) (0.01-0.08) K/mm3 Manual Slide Review Puncture Site Rt radial ABG pH 7.44 (7.35-7.45) ABG pCO2 36.0 (35.0-45.0) mmHg ABG pO2 54.0 L (80.0-100.0) mmHg ABG HCO3 23.8 (22.0-26.0) meq/L ABG O2 Saturation 89.0 L (96.0-97.0) % ABG Base Excess 0.3 (-2-2.0) A-a Gradient 81 mmHg O2 Delivery Device Nasal cannula Oxygen Flow Rate 1.5 FiO2 26.00 (21.00-100.00) % Sodium (136-145) mEq/L Potassium (3.5-5.1) mEq/L Chloride (98-107) mEq/L Carbon Dioxide (21-32) mEq/L Anion Gap (5-15) BUN (7-18) mg/dL Creatinine (0.55-1.02) mg/dL Est Cr Clr Drug Dosing mL/min Estimated GFR (MDRD) (>60) mL/min BUN/Creatinine Ratio (14-18) Glucose (74-106) mg/dL Calcium (8.5-10.1) mg/dL Total Bilirubin (0.2-1.0) mg/dL AST (15-37) U/L ALT (14-59) U/L Alkaline Phosphatase (46-116) U/L Troponin I (0.00-0.056) ng/mL C-Reactive Protein (<1.0) mg/dL Total Protein (6.4-8.2) g/dl Albumin (3.4-5.0) g/dl Globulin gm/dL Albumin/Globulin Ratio (1-2) Urine Color Yellow (Yellow) Urine Appearance Clear (Clear) Urine pH 6.0 (5.0-8.0) Ur Specific [place] 1.015 (1.005-1.030) Urine Protein Negative (Negative) Urine Glucose (UA) Negative (Negative) Urine Ketones Negative (Negative) Urine Occult Blood Negative (Negative) Urine Nitrite Negative (Negative) Urine Bilirubin Negative (Negative) Urine Urobilinogen 0.2 (0.2-1.0) Ur Leukocyte Esterase Negative (Negative) Urine RBC Not seen (0-5) /hpf Urine WBC Not seen (0-5) /hpf Ur Epithelial Cells 0-5 (0-5) /hpf Urine Bacteria Not seen (FEW) /hpf Urine Mucus Not seen (FEW) /hpf Urine Opiates Screen Presumptive positive H (NEGATIVE) Ur Buprenorphine Scrn Negative (NEGATIVE) Ur Oxycodone Screen Negative (NEGATIVE) Urine Methadone Screen Negative (NEGATIVE) Ur Propoxyphene Screen Negative (NEGATIVE) Ur Barbiturates Screen Negative (NEGATIVE) Ur Tricyclics Screen Negative (NEGATIVE) Ur Phencyclidine Scrn Negative (NEGATIVE) Ur Amphetamine Screen Negative (NEGATIVE) U Methamphetamines Scrn Negative (NEGATIVE) U Benzodiazepines Scrn Presumptive positive H (NEGATIVE) U Cocaine Metab Screen Negative (NEGATIVE) U Marijuana (THC) Screen Negative (NEGATIVE) Ethyl Alcohol (0.00) gm% Meds: Medications Generic Name Dose Route Start Last Admin Trade Name Freq PRN Reason Stop Dose Admin Sodium Chloride 1,000 mls @ 125 mls/hr 01/06/18 14:30 01/06/18 15:43 Normal Saline IV 125 mls/hr ASDIRECTED VIKAS Administration Sodium Chloride 10 ml 01/06/18 14:24 01/06/18 15:44 Saline Flush FLUSH 10 ml ASDIRECTED PRN Administration Keep Vein Open Discontinued Medications Generic Name Dose Route Start Last Admin Trade Name Freq PRN Reason Stop Dose Admin Albuterol/Ipratropium 3 ml 01/06/18 14:27 01/06/18 14:33 Duoneb 3.0-0.5 Mg/3 Ml NEB 01/06/18 14:28 3 ml ONETIME ONE Administration Albuterol/Ipratropium Confirm 01/06/18 14:34 01/06/18 14:33 Duoneb 3.0-0.5 Mg/3 Ml Administered 01/06/18 14:35 Not Given Dose 3 ml .ROUTE .STK-MED ONE Ceftriaxone Sodium 2 gm/ 100 mls @ 100 mls/hr 01/06/18 16:12 01/06/18 16:17 Sodium Chloride IV 01/06/18 17:11 100 mls/hr ONETIME ONE Administration - Re-Assessments/Exams Free Text/Narrative Re-Assessment/Exam: 01/06/18 17:41 I ordered an IV NS, EKG, CT of her head and labs. I also ordered a breathing treatment. Her EKG shows a NSR with some flattened T waves. Her CT shows senescent change. Motion artifact is present. Nothing acute is definitely identified on noncontrast head CT. Her WBC was elevated at 10.92. Her Hgb was low at 10.6. He pH was normal at 7.44. Her pO2 was 54. Her anion gap is elevated at 15.9. Her alk phos was elevated at 130. Her CRP was elevated at 19.3. Her UA shows no UTI. Her UDS was positive for opiates and benzos and her ETOH was negative. Her CXR shows a possible infiltrate in the left lung. I ordered blood cultures X 2 and rocephin 2 grams IV. I feels she needs to be admitted. I called Dr Aldrich and he agreed to the admission. Departure - Departure Time of Disposition: 18:00 Disposition: Admitted As Inpatient 66 Condition: Poor Clinical Impression: Hypoxia Failure to thrive Qualifiers: Failure to thrive age range: in adult Qualified Code(s): R62.7 - Adult failure to thrive COPD (chronic obstructive pulmonary disease) Qualifiers: COPD type: unspecified COPD Qualified Code(s): J44.9 - Chronic obstructive pulmonary disease, unspecified Pneumonia Qualifiers: Pneumonia type: due to unspecified organism Laterality: left Lung location: lower lobe of lung Qualified Code(s): J18.1 - Lobar pneumonia, unspecified organism Altered mental status Qualifiers: Altered mental status type: somnolence Qualified Code(s): R40.0 - Somnolence - Discharge Information - My Orders Last 24 Hours: My Active Orders 01/06/18 14:24 Cardiac Monitoring [RC] . DIRECTED Oxygen Therapy [RC] PRN Sodium Chloride 0.9% [Saline Flush] 10 ml FLUSH ASDIRECTED PRN Peripheral IV Insertion Adult [OM.PC] Stat 01/06/18 14:25 EKG Documentation Completion [RC] STAT Peripheral IV Care [RC] . DIRECTED Chest 1V Frontal [CR] Stat 01/06/18 14:27 RT Aerosol Therapy [RC] ASDIRECTED 01/06/18 14:30 Sodium Chloride 0.9% [Normal Saline] 1,000 ml IV ASDIRECTED 01/06/18 16:12 Blood Culture x2 Reflex Set [OM.PC] Stat 01/06/18 16:55 CULTURE BLOOD [BC] Stat 01/06/18 17:05 CULTURE BLOOD [BC] Stat - Assessment/Plan Last 24 Hours: My Active Orders 01/06/18 14:24 Cardiac Monitoring [RC] . DIRECTED Oxygen Therapy [RC] PRN Sodium Chloride 0.9% [Saline Flush] 10 ml FLUSH ASDIRECTED PRN Peripheral IV Insertion Adult [OM.PC] Stat 01/06/18 14:25 EKG Documentation Completion [RC] STAT Peripheral IV Care [RC] . DIRECTED Chest 1V Frontal [CR] Stat 01/06/18 14:27 RT Aerosol Therapy [RC] ASDIRECTED 01/06/18 14:30 Sodium Chloride 0.9% [Normal Saline] 1,000 ml IV ASDIRECTED 01/06/18 16:12 Blood Culture x2 Reflex Set [OM.PC] Stat 01/06/18 16:55 CULTURE BLOOD [BC] Stat 01/06/18 17:05 CULTURE BLOOD [BC] Stat
[2018-01-06] MEDS ORDERED: Albuterol/Ipratropium 3.0-0.5 MG/3 ML Neb Soln ONE (14:34)
--- NOTE | 2018-01-06 15:08 | CT ---
Head CT Technique: Multiple axial sections through the brain were obtained. Intravenous contrast was not utilized. Comparison: Prior head CT exam of 12/29/17. Findings: Ventricles along with basal cisterns and sulci over convexities are mildly prominent. Diminished density is noted within the periventricular and subcortical white matter as well as within the basal ganglia compatible with small vessel ischemic demyelination change. No other abnormal parenchymal densities are seen. Motion artifact persisted despite scan being repeated. No intracranial hemorrhage is seen. No midline shift or mass effect is seen. Bone window settings were reviewed which shows atherosclerotic calcification within the carotid siphon. No acute calvarial abnormality is appreciated. Impression: 1. Senescent change as noted above. Motion artifact is present. 2. Nothing acute is definitely identified on noncontrast head CT exam. Diagnostic code #2
[2018-01-06] MEDS ORDERED: cefTRIAXone 2 GM in Sodium Chloride 0.9% 100 ML IV ONE (16:12)
--- NOTE | 2018-01-06 19:11 | PCM.HP ---
H&P History of Present Illness - General Date of Service: 01/06/18 Admit Problem/Dx: Admission Diagnosis/Problem Admission Diagnosis/Problem Altered mental status Source of Information: Patient, Old Records, Provider, RN Notes Reviewed History Limitations: Reports: Altered Mental Status - History of Present Illness Initial Comments - Free Text/Narative: This is a 57 yo white female with past medical hx/o HTN, HLD, Asthma, Advanced COPD, ILD/Pulmonary Fibrosis, GERD, Anemia, Abdominal/Thoracic Aneurysm, Hx/o CVA, Chronic Pain Syndrome, OAB/Urge Incontinence, Neuropathy, Nicotine Dependence, Recent UTI, and Depression who was brought in by EMS due to AMS. Patient was not able to provide HPI due to AMS. Her family found her unresponsive at home. When EMS arrived, she would moan/ groan and answers some questions. However in ED, she would follow minimal commands and able to move all four extremities. Her initial work up in ED shows a CBC remarkable for WBC of 10.92, RBC of 3.49, hemoglobin of 10.6, MCV of 98.3, MCH of 30.9, RDW of 15.4, neutrophils of 74.3% and lymphocytes of 17.2%. Her ABG shows a pH of 7.44, PCO2 of 36, PO2 of 54, HCO3 of 22.8, O2 saturation of 89%, on 1.5 L nasal cannula with FiO2 of 26%. Her chemistry is remarkable for anion gap of 15.9, BUN of 20, alkaline phosphatase of 130, CRP of 19.3, and albumin of 2.3. Her UA is negative for urinary tract infection. Her UDS is positive for opiates and benzodiazepine. Her SAJI is 0. Her chest x-ray shows diffuse interstitial change without acute abnormal findings. Her head CT scan shows no acute intracranial abnormality. Patient is being admitted for altered mental status. She is full code. - Related Data Allergies/Adverse Reactions: Allergies Allergy/AdvReac Type Severity Reaction Status Date / Time Penicillins Allergy Shortness Verified 01/06/18 14:36 of Breath Sulfa (Sulfonamide Allergy Rash Verified 01/06/18 14:36 Antibiotics) Home Medications: Home Meds amLODIPine Besylate [Amlodipine Besylate] 5 mg PO DAILY 03/25/15 [History] Gabapentin [Neurontin] 400 mg PO 0800,1700 08/13/15 [History] Losartan Potassium [Cozaar] 100 mg PO DAILY 06/22/15 [History] Potassium Chloride 10 meq PO BID 06/22/15 [History] Solifenacin Succinate [Vesicare] 10 mg PO BEDTIME 06/22/15 [History] cloNIDine [Catapres-TTS 3] 0.3 mg TOP SA 06/22/15 [History] levETIRAcetam [Keppra] 250 mg PO BID 06/22/15 [History] Baclofen 10 mg PO TID 03/21/17 [History] Clopidogrel [Plavix] 75 mg PO DAILY 03/21/17 [History] Gabapentin [Neurontin] 800 mg PO BEDTIME 03/21/17 [History] Hydrocodone/Acetaminophen [Hydrocodon-Acetaminophn 10-325] 1 tab PO TID [History] Mirtazapine 30 mg PO BEDTIME 03/21/17 [History] atorvaSTATin [Lipitor] 40 mg PO DAILY 03/21/17 [History] Albuterol [Proventil HFA] 2 puff INH QID PRN 12/29/17 [History] Fluticasone/Salmeterol [Advair 250-50] 1 inh INH BID 12/29/17 [History] L.acidoph,Paracasei, B.lactis [Probiotic] 1 tab PO DAILY 12/29/17 [History] Loratadine 10 mg PO BEDTIME 12/29/17 [History] Polyethylene Glycol 3350 [Miralax] 17 gm PO DAILY PRN 12/29/17 [History] Tiotropium [Spiriva HandiHaler] 1 cap INH DAILY 12/29/17 [History] Doxycycline [Doxycycline Monohydrate] 100 mg PO BID 01/06/18 [History] Sertraline HCl [Zoloft] 50 mg PO DAILY 01/06/18 [History] tiZANidine [Zanaflex] 4 mg PO ASDIRECTED 01/06/18 [History] Past Medical History Other HEENT History: wears eyeglasses Cardiovascular History: Reports: Blood Clots/VTE/DVT, Hypertension Respiratory History: Reports: Bronchitis, Recurrent, COPD, Croup, Pneumonia, Recurrent, SOB Other Respiratory History: unknown, patient is unresponsive, using information from previous chart Gastrointestinal History: Reports: GERD Genitourinary History: Reports: None Other OB/BYN History: unable to assess with patient being unresponsive. Other Musculoskeletal History: unable to assess with patient being unresponsive. Neurological History: Reports: Cerebral Aneurysms, CVA Other Neuro History: taken from previous chart Psychiatric History: Reports: Depression Other Psychiatric History: obtained from previous chart Endocrine/Metabolic History: Reports: None Other Endocrine/Metabolic History: unable to assess going off of previous chart , patient is unresponsive. Hematologic History: Reports: None Other Hematologic History: Unable to assess as pt is unresponsive, this information entered by ED. Immunologic History: Reports: None Other Immunologic History: Unable to assess as pt is confused, Oncologic (Cancer) History: Reports: None Dermatologic History: Reports: None Other Dermatologic History: Unable to assess as pt is unresponsive, this information entered by ED. - Infectious Disease History Infectious Disease History: Reports: MRSA - Past Surgical History GI Surgical History: Reports: Other (See Below) Other GI Surgeries/Procedures: mesh surgery Musculoskeletal Surgical History: Reports: Other (See Below) Other Musculoskeletal Surgeries/Procedures:: surgery to ankle Social & Family History - Family History Family Medical History: Unobtainable - Tobacco Use Smoking Status *Q: Current Every Day Smoker Years of Tobacco use: 40 Packs/Tins Daily: 0.3 Used Tobacco, but Quit: No Second Hand Smoke Exposure: No - Caffeine Use Caffeine Use: Reports: Coffee Other Caffeine Use: unknown - Recreational Drug Use Recreational Drug Use: No H&P Review of Systems - Review of Systems: Review Of Systems: Unable To Obtain (Due to lethargy/AMS) Exam - Exam Exam: See Below - Vital Signs Vital Signs: Last Vital Signs Temp 36.7 C 01/06/18 14:25 Pulse 78 01/06/18 14:25 Resp 24 H 01/06/18 14:25 BP 125/101 H 01/06/18 14:25 Pulse Ox 95 01/06/18 16:51 Weight: 68.447 kg - Exam Quality Assessment: Supplemental Oxygen General: Lethargic HEENT: Conjunctiva Clear, Hearing Intact, Nares Patent, Normal Nasal Septum, Pupils Equal, Pupils Reactive Neck: Supple, Trachea Midline Lungs: Normal Respiratory Effort, Rhonchi, Wheezing Cardiovascular: Regular Rate, Regular Rhythm GI/Abdominal Exam: Normal Bowel Sounds, Soft, Non-Tender, No Organomegaly, No Distention, No Abnormal Bruit, No Mass (Female) Exam: Deferred Rectal (Female) Exam: Deferred Back Exam: Normal Inspection Extremities: Normal Inspection, Normal Range of Motion, Non-Tender, No Pedal Edema, Normal Capillary Refill Skin: Warm, Dry Neuro Extensive - Mental Status: Slow Response to Commands, Other (limited due to AMS) Neuro Extensive - Motor, Sensory, Reflexes: CN II-XII Intact (deferred due to AMS) Psychiatric: Other (Lethargy) Physical Exam Comments:: Physical examination limited due to AMS - Patient Data Result Diagrams: 01/06/18 14:30 01/06/18 14:30 EKG INTERPRETATION EKG Date: 01/06/18 Time: 14:21 Rhythm: NSR Rate (Beats/Min): 70 [place]: Normal P-Wave: Present QRS: Normal ST-T: Other (flattened T waves in anterolateral leads) QT: Normal *Q Meaningful Use (ADM) - VTE *Q VTE Criteria *Q: - Stroke *Q Stroke Criteria *Q: - AMI *Q AMI Criteria *Q: Problem List Initiated/Reviewed/Updated: Yes Orders Last 24hrs: Active Orders 24 hr Category Date Time Status Patient Status [ADT] Routine ADT 01/06/18 17:52 Active Resuscitation Status Routine Resus Stat 01/06/18 19:05 Ordered Medication Orders Sodium Chloride (Normal Saline) 1,000 mls @ 125 mls/hr IV ASDIRECTED [facility] Last Admin: 01/06/18 15:43 Dose: 125 mls/hr Sodium Chloride (Saline Flush) 10 ml FLUSH ASDIRECTED PRN PRN Reason: Keep Vein Open Last Admin: 01/06/18 15:44 Dose: 10 ml Assessment/Plan Comment:: Assessment/Plan: Acute: Encephalopathy - 2/2 POLYPHARMACY + Metabolic from low O2 (Hypoxia) - Head CT scan: no acute abnormal findings - CXR: Diffuse interstitial change - She is on the following medications: causing sedation, hypnosis or lethargy - Kepra 250 mg po BID - Hydrocodone 10 mg by mouth 3 times a day - Zanaflex 4 mg by mouth as directed - Vesicare 10 mg by mouth daily - Mirtazapine 30 mg by mouth at bedtime - Zoloft 50 mg by mouth daily - Baclofen 10 mg by mouth 3 times a day - Gabapentin: 5 mg by mouth at 8:00 in 1700 and 800 mg by mouth bedtime - +/- Levaquin 750 mg po daily for treatment of PNA Failure To Thrive/Neglect - Recently treatment with PNA - Did not do well home after discharge - Consider nuring home placement/assisted living facility Generalized Weakness - Poor intake and inability to care herself - PT/OT consult - Vit D level and thyroid panel Severe Polypharmacy - In house pharmacy to review home meds and make further recommendations Chronic: HTN HLD Asthma Advanced COPD, w/o Exacerbation ILD/Pulmonary Fibrosis GERD Anemia Abdominal/Thoracic Aneurysm Hx/o CVA Pain Syndrome OAB/Urge Incontinence Neuropathy Nicotine Dependence Recent UTI Depression Plan: Admit to the floor Resume Some Home Medications Hold above night meds for now Oral stimulant x1 in AM Routine AM Labs Vitamin D and Thyroid Panel PT/OT/RT consult Aspiration/Fall Precautions SW/CM for d/c planning Code status: 1
[2018-01-06] MEDS ORDERED: Polyethylene Glycol 3350 Powder 17 GM Packet PO PRN (19:20)
[2018-01-06] MEDS ORDERED: Metoprolol Tartrate 5 MG/5 ML SDV IVPUSH PRN (19:20)
[2018-01-06] MEDS ORDERED: hydrALAZINE 20 MG/ML SDV IVPUSH PRN (19:20)
[2018-01-06] MEDS ORDERED: LORazepam 2 MG/ML SDV IVPUSH PRN (19:20)
[2018-01-06] MEDS ORDERED: Albuterol 6.7 GM Inhaler INH PRN (19:20)
[2018-01-06] MEDS ORDERED: methylPREDNISolone Sodium Succinate 40 MG/1 ML SDV IVPUSH ONE (19:28)
[2018-01-06] MEDS ORDERED: SALMETEROL INH SCH (21:00)
[2018-01-06] MEDS ORDERED: Non-Formulary Medication 1 Each (Solifenacin Succinate [Vesicare] 10 MG) PO SCH (21:00)
[2018-01-06] MEDS ORDERED: FLUTICASONE INH SCH (21:00)
[2018-01-06] MEDS ORDERED: Mirtazapine 30 MG Tab PO SCH (21:00)
[2018-01-06] MEDS ORDERED: Doxycycline 100 MG Cap PO SCH (21:00)
[2018-01-06] MEDS: Formoterol/Mometasone 200-5 MCG 8.8 GM Inhaler IH SCH (21:20)
[2018-01-06] MEDS: Loratadine 10 MG Tab PO SCH (22:11)
[2018-01-06] MEDS: Trospium 20 MG Tab PO SCH (22:11)
[2018-01-06] MEDS: levETIRAcetam Soln 500 MG/5 ML Cup PO SCH (22:12)
[2018-01-06] MEDS: Potassium Chloride 10 MEQ Tab.ER PO SCH (22:12)
[2018-01-06] MEDS: Acetaminophen/HYDROcodone 325-10 MG Tab PO SCH (22:12)
[2018-01-07] MEDS: Acetaminophen/HYDROcodone 325-10 MG Tab PO SCH (05:17)
[2018-01-07] MEDS: Formoterol/Mometasone 200-5 MCG 8.8 GM Inhaler IH SCH ×2 (05:24→20:15)
[2018-01-07] MEDS ORDERED: Acetaminophen/HYDROcodone 325-10 MG Tab PO SCH (06:45)
[2018-01-07] MEDS ORDERED: Sodium Chloride 0.9% 1,000 ML IV SCH (06:45)
[2018-01-07] MEDS: Potassium Chloride 10 MEQ Tab.ER PO SCH ×2 (06:51→17:08)
[2018-01-07] MEDS: predniSONE 20 MG Tab PO SCH (06:52)
[2018-01-07] MEDS ORDERED: Modafinil 200 MG Tab PO ONE (07:00)
[2018-01-07] MEDS: Trospium 20 MG Tab PO SCH ×2 (07:43→17:07)
--- NOTE | 2018-01-07 08:21 | PCM.PN ---
- General Info Date of Service: 01/07/18 Admission Dx/Problem (Free Text): Admission Diagnosis/Problem Admission Diagnosis/Problem Altered mental status Doing well this morning, sitting up in chair. Slept well. Ate full breakfast of "muffin and yogurt". Pain to low back, chronic pain for her- unchanged. Ambulated the big loop with nursing this morning with FWW. Functional Status: Reports: Pain Controlled, Tolerating Diet (is swallowing and taking sips/water this morning. ), Urinating - Review of Systems General: Reports: Weakness (improving), Fatigue. Denies: Fever HEENT: Reports: No Symptoms Pulmonary: Reports: No Symptoms, Shortness of Breath (chronic and stable), Other (recent strep pneumonia dx at prior hospital stay 4 days ago) Cardiovascular: Reports: No Symptoms, Dyspnea on Exertion (chronic and stable). Denies: Chest Pain, Palpitations Gastrointestinal: Reports: No Symptoms. Denies: Abdominal Pain, Nausea, Vomiting Genitourinary: Reports: No Symptoms, Other (prior UTI during prior hospitalization) Neurological: Reports: Confusion Psychiatric: Reports: Confusion - Patient Data Vitals - Most Recent: Last Vital Signs Temp 97.7 F 01/07/18 07:21 Pulse 80 01/07/18 07:21 Resp 40 H 01/07/18 07:21 BP 108/83 01/07/18 07:21 Pulse Ox 93 L 01/07/18 07:21 Weight - Most Recent: 148 lb 4.8 oz I&O - Last 24 Hours: Intake & Output 01/06/18 01/07/18 01/07/18 22:59 06:59 14:59 Intake Total 0 Balance 0 Lab Results Last 24 Hours: Laboratory Results - last 24 hr 01/07/18 Range/Units 05:15 Sodium 138 (136-145) mEq/L Potassium 4.1 (3.5-5.1) mEq/L Chloride 104 (98-107) mEq/L Carbon Dioxide 23 (21-32) mEq/L Anion Gap 15.1 H (5-15) BUN 17 (7-18) mg/dL Creatinine 0.8 (0.55-1.02) mg/dL Est Cr Clr Drug Dosing 72.63 mL/min Estimated GFR (MDRD) > 60 (>60) mL/min BUN/Creatinine Ratio 21.3 H (14-18) Glucose 114 H (74-106) mg/dL Calcium 8.5 (8.5-10.1) mg/dL Magnesium 2.3 (1.8-2.4) mg/dl Med Orders - Current: Current Medications Albuterol (Proventil Hfa) 0 gm INH QID PRN PRN Reason: Shortness of Breath Amlodipine Besylate (Norvasc) 5 mg PO DAILY [facility] Clonidine HCl (Catapres-Tts 3) 0.3 mg TOP Sa@0900 [facility] Clopidogrel Bisulfate (Plavix) 75 mg PO DAILY [facility] Famotidine (Pepcid) 20 mg PO BID [facility] Gabapentin (Neurontin) 400 mg PO BID@0800,1700 [facility] Hydralazine HCl (Apresoline) 20 mg IVPUSH Q4H PRN PRN Reason: Hypertension Sodium Chloride (Normal Saline) 1,000 mls @ 50 mls/hr IV ASDIRECTED [facility] Ceftriaxone Sodium 1 gm/ (Sodium Chloride) 100 mls @ 200 mls/hr IV Q24H [facility] Levetiracetam (Keppra) 250 mg PO BID [facility] Last Admin: 01/06/18 22:12 Dose: Not Given Loratadine (Claritin) 10 mg PO BEDTIME [facility] Last Admin: 01/06/18 22:11 Dose: Not Given Lorazepam (Ativan) 2 mg IVPUSH Q4H PRN PRN Reason: Seizures Losartan Potassium (Cozaar) 100 mg PO DAILY [facility] Magnesium Sulfate (Pharmacy To Dose - Magnesium Replacement) 1 dose .XX ASDIRECTED [facility] Metoprolol Tartrate (Lopressor) 5 mg IVPUSH Q4H PRN PRN Reason: Tachycardia Miscellaneous Information (Remove Patch) 1 ea TRDERM Sa@0900 [facility] Mometasone Furoate/Formoterol Fumar (Dulera 200-5 Mcg) 2 puff IH BIDRT [facility] Last Admin: 01/07/18 05:24 Dose: 2 puff Polyethylene Glycol (Miralax) 17 gm PO DAILY PRN PRN Reason: Constipation Potassium Chloride (Klor-Con 10) 10 meq PO BIDMEALS [facility] Last Admin: 01/07/18 06:51 Dose: 10 meq Potassium Chloride (Pharmacy To Dose - Potassium Replacement) 1 dose .XX ASDIRECTED [facility] Prednisone (Prednisone) 60 mg PO WITHBREAKFAST [facility] Last Admin: 01/07/18 06:52 Dose: 60 mg Rosuvastatin Calcium (Crestor) 10 mg PO DAILY [facility] Saccharomyces Boulardii (Florastor) 250 mg PO DAILY [facility] Sertraline HCl (Zoloft) 50 mg PO DAILY [facility] Sodium Chloride (Saline Flush) 10 ml FLUSH ASDIRECTED PRN PRN Reason: Keep Vein Open Last Admin: 01/06/18 15:44 Dose: 10 ml Tiotropium [place] (Spiriva Handihaler) 18 mcg INH DAILY [facility] Trospium (Sanctura) 20 mg PO BIDAC [facility] Last Admin: 01/07/18 07:43 Dose: Not Given Discontinued Medications Hydrocodone Bitart/Acetaminophen ([place] 325-10 Mg) 1 tab PO TID [facility] Last Admin: 01/07/18 05:17 Dose: 1 tab Hydrocodone Bitart/Acetaminophen ([place] 325-10 Mg) 1 tab PO Q8H [facility] Last Admin: 01/07/18 06:50 Dose: Not Given Albuterol/Ipratropium (Duoneb 3.0-0.5 Mg/3 Ml) 3 ml NEB ONETIME ONE Stop: 01/06/18 14:28 Last Admin: 01/06/18 14:33 Dose: 3 ml Albuterol/Ipratropium (Duoneb 3.0-0.5 Mg/3 Ml) Confirm Administered Dose 3 ml .ROUTE .STK-MED ONE Stop: 01/06/18 14:35 Last Admin: 01/06/18 14:33 Dose: Not Given Azithromycin (Zithromax) 250 mg PO DAILY [facility] Doxycycline Hyclate (Vibramycin) 100 mg PO BID [facility] Last Admin: 01/06/18 22:12 Dose: Not Given Sodium Chloride (Normal Saline) 1,000 mls @ 125 mls/hr IV ASDIRECTED [facility] Last Admin: 01/06/18 15:43 Dose: 125 mls/hr Ceftriaxone Sodium 2 gm/ (Sodium Chloride) 100 mls @ 100 mls/hr IV ONETIME ONE Stop: 01/06/18 17:11 Last Admin: 01/06/18 16:17 Dose: 100 mls/hr Methylprednisolone Sodium Succinate (Solu-Medrol) 40 mg IVPUSH ONETIME ONE Stop: 01/06/18 19:29 Last Admin: 01/06/18 21:30 Dose: 40 mg Mirtazapine (Remeron) 30 mg PO BEDTIME [facility] Last Admin: 01/06/18 22:12 Dose: Not Given Modafinil (Provigil) 100 mg PO ONETIME ONE Stop: 01/06/18 07:01 Last Admin: 01/06/18 19:58 Dose: Not Given Modafinil (Provigil) 100 mg PO ONETIME ONE Stop: 01/07/18 07:01 Last Admin: 01/07/18 06:51 Dose: 100 mg - Exam Quality Assessment: Supplemental Oxygen, DVT Prophylaxis General: Alert, Oriented (x 2-3 today), Cooperative, No Acute Distress, Other ( pleasant) HEENT: Pupils Equal, Pupils Reactive, Mucous Membr. Moist/[place] Neck: Supple Lungs: Normal Respiratory Effort, Decreased Breath Sounds Cardiovascular: Regular Rate, Regular Rhythm GI/Abdominal Exam: Normal Bowel Sounds, Soft, Non-Tender (Female) Exam: Deferred Extremities: No Pedal Edema, Normal Capillary Refill Peripheral Pulses: 2+: Dorsalis Pedis (L), Dorsalis Pedis (R) Neurological: No New Focal Deficit Psy/Mental Status: Alert, Normal Affect, Normal Mood - Problem List & Annotations (1) Altered mental state SNOMED Code(s): 866087927 Code(s): R41.82 - ALTERED MENTAL STATUS, UNSPECIFIED Status: Acute Priority: High Current Visit: Yes Qualifiers: Altered mental status type: somnolence Qualified Code(s): R40.0 - Somnolence (2) Failure to thrive SNOMED Code(s): 49230905 Code(s): [id number] - Status: Acute Priority: High Current Visit: Yes Qualifiers: Failure to thrive age range: in adult Qualified Code(s): R62.7 - Adult failure to thrive (3) Hypoxia SNOMED Code(s): 204708086 Code(s): R09.02 - HYPOXEMIA Status: Acute Priority: High Current Visit : Yes (4) Chronic low back pain SNOMED Code(s): 598982625 Code(s): M54.5 - LOW BACK PAIN; G89.29 - OTHER CHRONIC PAIN Status: Chronic Priority: Medium Current Visit: Yes Qualifiers: Back pain laterality: right Sciatica laterality: sciatica of right side (5) COPD (chronic obstructive pulmonary disease) SNOMED Code(s): 12634722 Code(s): J44.9 - CHRONIC OBSTRUCTIVE PULMONARY DISEASE, UNSPECIFIED Status : Chronic Priority: Medium Current Visit: Yes Qualifiers: COPD type: unspecified COPD Qualified Code(s): J44.9 - Chronic obstructive pulmonary disease, unspecified (6) Tobacco use disorder SNOMED Code(s): 864251799 Code(s): F17.200 - NICOTINE DEPENDENCE, UNSPECIFIED, UNCOMPLICATED Status: Chronic Priority: Medium Current Visit: Yes - Problem List Review Problem List Initiated/Reviewed/Updated: Yes - My Orders Last 24 Hours: My Active Orders 01/07/18 06:45 Sodium Chloride 0.9% [Normal Saline] 1,000 ml IV ASDIRECTED 01/07/18 08:06 CBC WITH AUTO DIFF [HEME] Routine 01/07/18 08:08 OT Evaluation and Treatment [CONS] Routine PT Evaluation and Treatment [CONS] Routine 01/07/18 08:09 JASS Hose [Antiembolic Hose] [OM.PC] Routine 01/07/18 08:10 Antiembolic Devices [RC] PER UNIT ROUTINE 01/07/18 08:14 CRP [C-REACTIVE PROTEIN] [CHEM] Routine 01/07/18 08:15 cefTRIAXone [Rocephin] 1 gm Sodium Chloride 0.9% [Normal Saline] 100 ml IV Q24H 01/07/18 09:00 Famotidine [Pepcid] 20 mg PO BID 01/08/18 05:11 BASIC METABOLIC PANEL,BMP [CHEM] AM CBC WITH AUTO DIFF [HEME] AM MAGNESIUM [CHEM] AM - Plan Plan:: Assessment/Plan: Acute: Encephalopathy--resolving - 2/2 POLYPHARMACY + Metabolic from low O2 (Hypoxia) - Head CT scan: no acute abnormal findings - CXR: Diffuse interstitial change, prior recent strep pneumo + during prior hospital stay 4 days ago---cont on Rocephin IV QD for now - She is on the following medications: causing sedation, hypnosis or lethargy - Kepra 250 mg po BID - Hydrocodone 10 mg by mouth 3 times a day---change to PRN - Zanaflex 4 mg by mouth as directed--Hold - Vesicare 10 mg by mouth daily - Mirtazapine 30 mg by mouth at bedtime--Hold - Zoloft 50 mg by mouth daily - Baclofen 10 mg by mouth 3 times a day--Hold - Gabapentin: 5 mg by mouth at 8:00 in 1700 and 800 mg by mouth bedtime - +/- Levaquin 750 mg po daily for treatment of PNA---stop, change to rocephin Failure To Thrive/Neglect - Recently treatment with PNA/UTI - Did not do well at home after discharge - Consider care home placement/assisted living facility -- SW/CM consult Generalized Weakness - Poor intake and inability to care herself - PT/OT consult - Vit D level and thyroid panel Severe Polypharmacy - In house pharmacy to review home meds and make further recommendations -Discussed with Pharmacist this morning, changes made COPD -Oxygen dependent, keep O2 sats >90% -RT/IS/nebs -Prednisone PO Tobacco use disorder -Smoking cessation education -Nicotine patch Chronic: HTN HLD Asthma Advanced COPD, w/o Exacerbation ILD/Pulmonary Fibrosis GERD Anemia Abdominal/Thoracic Aneurysm Hx/o CVA Pain Syndrome--chronic LBP, unchanged OAB/Urge Incontinence Neuropathy Nicotine Dependence Recent UTI Depression Plan: Admit to the floor Resume Some Home Medications Oral stimulant x1 in AM Routine AM Labs Vitamin D and Thyroid Panel PT/OT/RT consult Aspiration/Fall Precautions SW/ for d/c planning--at this point recommend SNF stay, DC pending placement. Code status: 1 PCP is Mary Luo with [facility]
[2018-01-07] MEDS: Tiotropium Inhaler 18 MCG Inhalation Powder Cap Kit of 5 INH SCH (08:37)
--- NOTE | 2018-01-07 08:46 | CR ---
Chest: Portable view of the chest was obtained. Comparison: Prior chest x-ray of 12/31/17. Tortuous and aneurysmal aorta is noted. Interstitial changes are seen within both lungs most likely due to fibrosis. Lungs otherwise are clear. Bony structures are grossly intact. Heart size appears at the upper limits of normal. Impression: 1. Tortuous and aneurysmal thoracic aorta. 2. Interstitial fibrosis. 3. Nothing acute is seen. Diagnostic code #2
[2018-01-07] MEDS ORDERED: Azithromycin 250 MG Tab PO SCH (09:00)
[2018-01-07] MEDS ORDERED: Non-Formulary Medication 1 Each (Atorvastatin 40 MG) PO SCH (09:00)
[2018-01-07] MEDS: Losartan 100 MG Tab PO SCH (10:35)
[2018-01-07] MEDS: Sertraline 50 MG Tab PO SCH (10:35)
[2018-01-07] MEDS: Clopidogrel 75 MG Tab PO SCH (10:35)
[2018-01-07] MEDS: Rosuvastatin 10 MG Tab PO SCH (10:35)
[2018-01-07] MEDS: levETIRAcetam Soln 500 MG/5 ML Cup PO SCH ×2 (10:37→20:26)
[2018-01-07] MEDS: Saccharomyces Boulardii (Probiotic) 250 MG Cap PO SCH (10:37)
[2018-01-07] MEDS: Famotidine 20 MG Tab PO SCH ×2 (10:37→20:26)
[2018-01-07] MEDS: amLODIPine 5 MG Tab PO SCH (10:37)
[2018-01-07] MEDS: Gabapentin 100 MG Cap PO SCH ×2 (10:41→17:07)
[2018-01-07] MEDS: Nicotine 21 MG/24 Hr Patch TRDERM SCH (12:35)
[2018-01-07] MEDS: cefTRIAXone 1 GM in Dextrose 5% in Water 100 ML IV SCH ×2 (17:06)
[2018-01-07] MEDS: cloNIDine 0.3 MG/Day Transdermal Patch TOP SCH (17:06)
[2018-01-07] MEDS: Magnesium Hydroxide 400 MG/5 ML Susp 30 ML Cup PO PRN (18:49)
[2018-01-07] MEDS: Loratadine 10 MG Tab PO SCH (20:26)
[2018-01-07] MEDS: Docusate Sodium 100 MG Cap PO SCH (20:26)
[2018-01-07] MEDS: Acetaminophen/HYDROcodone 325-5 MG Tab PO PRN (20:32)
[2018-01-07] MEDS ORDERED: diphenhydrAMINE 50 MG/ML SDV IVPUSH ONE (21:11)
[2018-01-08] MEDS: Formoterol/Mometasone 200-5 MCG 8.8 GM Inhaler IH SCH ×2 (05:20→20:28)
[2018-01-08] MEDS: Trospium 20 MG Tab PO SCH (06:13)
--- NOTE | 2018-01-08 07:01 | PCM.PN ---
- General Info Date of Service: 01/08/18 Admission Dx/Problem (Free Text): Admission Diagnosis/Problem Admission Diagnosis/Problem Altered mental status Doing well this morning. Did not sleep well as "I need that gabapentin at bedtime". Eating, voiding, had large BM this morning- no blood or melena noted ( regarding lower hgb this am), ambulating. Continues to have chronic LBP, neuropathy pain to LE. DC is pending placement with SNF. Functional Status: Reports: Pain Controlled (chronic low back pain), Tolerating Diet, Ambulating, Urinating, Incentive Spirometry. Denies: New Symptoms - Review of Systems General: Reports: No Symptoms HEENT: Reports: No Symptoms Pulmonary: Reports: Shortness of Breath (chronic- baseline), Cough (chronic, no worsening) Cardiovascular: Reports: Dyspnea on Exertion (chronic- baseline). Denies: Chest Pain, Palpitations Gastrointestinal: Reports: No Symptoms. Denies: Abdominal Pain, Diarrhea, Nausea, Vomiting Genitourinary: Reports: No Symptoms Musculoskeletal: Reports: Back Pain (chronic ) Neurological: Reports: No Symptoms - Patient Data Vitals - Most Recent: Last Vital Signs Temp 98.2 F 01/08/18 03:34 Pulse 75 01/08/18 03:34 Resp 21 H 01/08/18 03:34 BP 103/72 01/08/18 03:34 Pulse Ox 96 01/08/18 05:20 Weight - Most Recent: 152 lb 8 oz I&O - Last 24 Hours: Intake & Output 01/07/18 01/07/18 01/08/18 14:59 22:59 06:59 Intake Total 2170 1127 Output Total 600 Balance 2170 527 Lab Results Last 24 Hours: Laboratory Results - last 24 hr 01/07/18 01/07/18 01/07/18 Range/Units 05:15 05:15 05:15 WBC 7.29 (3.98-10.04) K/mm3 RBC 3.25 L (3.98-5.22) M/mm3 Hgb 9.8 L (11.2-15.7) gm/L Hct 31.5 L (34.1-44.9) % MCV 96.9 H (79.4-94.8) fl MCH 30.2 (25.6-32.2) pg MCHC 31.1 L (32.2-35.5) g/dl RDW Std Deviation 48.8 H (36.4-46.3) fL Plt Count 276 (182-369) K/mm3 MPV 11.1 (9.4-12.3) fl Neut % (Auto) 86.3 H (34.0-71.1) % Lymph % (Auto) 10.2 L (19.3-51.7) % Burt % (Auto) 2.7 L (4.7-12.5) % Eos % (Auto) 0 L (0.7-5.8) Baso % (Auto) 0.0 L (0.1-1.2) % Neut # (Auto) 6.29 H (1.56-6.13) K/mm3 Lymph # (Auto) 0.74 L (1.18-3.74) K/mm3 Burt # (Auto) 0.20 L (0.24-0.36) K/mm3 Eos # (Auto) 0.00 L (0.04-0.36) K/mm3 Baso # (Auto) 0.00 L (0.01-0.08) K/mm3 Manual Slide Review Abnormal smear C-Reactive Protein 17.7 H* (<1.0) mg/dL Free T4 0.81 (0.76-1.46) ng/dL TSH 3rd Generation 1.117 (0.358-3.74) uIU/mL MRSA (PCR) 01/07/18 01/08/18 Range/Units 20:39 05:28 WBC 7.49 (3.98-10.04) K/mm3 RBC 2.91 L (3.98-5.22) M/mm3 Hgb 8.8 L (11.2-15.7) gm/L Hct 28.4 L (34.1-44.9) % MCV 97.6 H (79.4-94.8) fl MCH 30.2 (25.6-32.2) pg MCHC 31.0 L (32.2-35.5) g/dl RDW Std Deviation 48.7 H (36.4-46.3) fL Plt Count 250 (182-369) K/mm3 MPV 10.8 (9.4-12.3) fl Neut % (Auto) 62.7 (34.0-71.1) % Lymph % (Auto) 26.4 (19.3-51.7) % Burt % (Auto) 9.6 (4.7-12.5) % Eos % (Auto) 0.8 (0.7-5.8) Baso % (Auto) 0.0 L (0.1-1.2) % Neut # (Auto) 4.69 (1.56-6.13) K/mm3 Lymph # (Auto) 1.98 (1.18-3.74) K/mm3 Burt # (Auto) 0.72 H (0.24-0.36) K/mm3 Eos # (Auto) 0.06 (0.04-0.36) K/mm3 Baso # (Auto) 0.00 L (0.01-0.08) K/mm3 Manual Slide Review C-Reactive Protein (<1.0) mg/dL Free T4 (0.76-1.46) ng/dL TSH 3rd Generation (0.358-3.74) uIU/mL MRSA (PCR) Negative Med Orders - Current: Current Medications Hydrocodone Bitart/Acetaminophen (Chaplin 325-5 Mg) 1 tab PO Q4H PRN PRN Reason: Pain Last Admin: 01/07/18 20:32 Dose: 1 tab Albuterol (Proventil Hfa) 0 gm INH QID PRN PRN Reason: Shortness of Breath Amlodipine Besylate (Norvasc) 5 mg PO DAILY [facility] Last Admin: 01/07/18 10:37 Dose: 5 mg Cholecalciferol (Vitamin D3) 5,000 units PO DAILY [facility] Clonidine HCl (Catapres-Tts 3) 0.3 mg TOP Sa@0900 [facility] Last Admin: 01/07/18 17:06 Dose: 0.3 mg Clopidogrel Bisulfate (Plavix) 75 mg PO DAILY [facility] Last Admin: 01/07/18 10:35 Dose: 75 mg Docusate Sodium (Colace) 100 mg PO BID [facility] Last Admin: 01/07/18 20:26 Dose: 100 mg Famotidine (Pepcid) 20 mg PO BID [facility] Last Admin: 01/07/18 20:26 Dose: 20 mg Gabapentin (Neurontin) 400 mg PO BID@0800,1700 [facility] Last Admin: 01/07/18 17:07 Dose: 400 mg Hydralazine HCl (Apresoline) 20 mg IVPUSH Q4H PRN PRN Reason: Hypertension Ceftriaxone Sodium 1 gm/ (Dextrose/Water) 100 mls @ 200 mls/hr IV Q24H [facility] Last Admin: 01/07/18 17:06 Dose: 200 mls/hr Levetiracetam (Keppra) 250 mg PO BID [facility] Last Admin: 01/07/18 20:26 Dose: 250 mg Loratadine (Claritin) 10 mg PO BEDTIME [facility] Last Admin: 01/07/18 20:26 Dose: 10 mg Lorazepam (Ativan) 2 mg IVPUSH Q4H PRN PRN Reason: Seizures Losartan Potassium (Cozaar) 100 mg PO DAILY [facility] Last Admin: 01/07/18 10:35 Dose: 100 mg Magnesium Hydroxide (Milk Of Magnesia) 30 ml PO DAILY PRN PRN Reason: Constipation Last Admin: 01/07/18 18:49 Dose: 30 ml Magnesium Sulfate (Pharmacy To Dose - Magnesium Replacement) 1 dose .XX ASDIRECTED [facility] Metoprolol Tartrate (Lopressor) 5 mg IVPUSH Q4H PRN PRN Reason: Tachycardia Miscellaneous Information (Remove Patch) 1 ea TRDERM Sa@0900 [facility] Miscellaneous Information (Remove Patch) 0 ea TRDERM DAILY [facility] Mometasone Furoate/Formoterol Fumar (Dulera 200-5 Mcg) 2 puff IH BIDRT [facility] Last Admin: 01/08/18 05:20 Dose: 2 puff Nicotine (Habitrol) 21 mg TRDERM DAILY [facility] Last Admin: 01/07/18 12:35 Dose: Not Given Polyethylene Glycol (Miralax) 17 gm PO DAILY PRN PRN Reason: Constipation Potassium Chloride (Klor-Con 10) 10 meq PO BIDMEALS [facility] Last Admin: 01/07/18 17:08 Dose: 10 meq Potassium Chloride (Pharmacy To Dose - Potassium Replacement) 1 dose .XX ASDIRECTED [facility] Prednisone (Prednisone) 60 mg PO WITHBREAKFAST [facility] Last Admin: 01/07/18 06:52 Dose: 60 mg Rosuvastatin Calcium (Crestor) 10 mg PO DAILY [facility] Last Admin: 01/07/18 10:35 Dose: 10 mg Saccharomyces Boulardii (Florastor) 250 mg PO DAILY [facility] Last Admin: 01/07/18 10:37 Dose: 250 mg Sertraline HCl (Zoloft) 50 mg PO DAILY [facility] Last Admin: 01/07/18 10:35 Dose: 50 mg Sodium Chloride (Saline Flush) 10 ml FLUSH ASDIRECTED PRN PRN Reason: Keep Vein Open Last Admin: 01/06/18 15:44 Dose: 10 ml Tiotropium [place] (Spiriva Handihaler) 18 mcg INH DAILY [facility] Last Admin: 01/07/18 08:37 Dose: 1 cap Trospium (Sanctura) 20 mg PO BIDAC [facility] Last Admin: 01/08/18 06:13 Dose: 20 mg Discontinued Medications Hydrocodone Bitart/Acetaminophen (Chaplin 325-10 Mg) 1 tab PO TID [facility] Last Admin: 01/07/18 05:17 Dose: 1 tab Hydrocodone Bitart/Acetaminophen (Chaplin 325-10 Mg) 1 tab PO Q8H [facility] Last Admin: 01/07/18 06:50 Dose: Not Given Albuterol/Ipratropium (Duoneb 3.0-0.5 Mg/3 Ml) 3 ml NEB ONETIME ONE Stop: 01/06/18 14:28 Last Admin: 01/06/18 14:33 Dose: 3 ml Albuterol/Ipratropium (Duoneb 3.0-0.5 Mg/3 Ml) Confirm Administered Dose 3 ml .ROUTE .STK-MED ONE Stop: 01/06/18 14:35 Last Admin: 01/06/18 14:33 Dose: Not Given Azithromycin (Zithromax) 250 mg PO DAILY [facility] Diphenhydramine HCl (Benadryl) 25 mg IVPUSH ONETIME ONE Stop: 01/07/18 21:12 Last Admin: 01/07/18 21:34 Dose: 25 mg Doxycycline Hyclate (Vibramycin) 100 mg PO BID [facility] Last Admin: 01/06/18 22:12 Dose: Not Given Sodium Chloride (Normal Saline) 1,000 mls @ 125 mls/hr IV ASDIRECTED [facility] Last Admin: 01/06/18 15:43 Dose: 125 mls/hr Ceftriaxone Sodium 2 gm/ (Sodium Chloride) 100 mls @ 100 mls/hr IV ONETIME ONE Stop: 01/06/18 17:11 Last Admin: 01/06/18 16:17 Dose: 100 mls/hr Sodium Chloride (Normal Saline) 1,000 mls @ 50 mls/hr IV ASDIRECTED [facility] Last Admin: 01/07/18 22:08 Dose: 50 mls/hr Methylprednisolone Sodium Succinate (Solu-Medrol) 40 mg IVPUSH ONETIME ONE Stop: 01/06/18 19:29 Last Admin: 01/06/18 21:30 Dose: 40 mg Mirtazapine (Remeron) 30 mg PO BEDTIME [facility] Last Admin: 01/06/18 22:12 Dose: Not Given Modafinil (Provigil) 100 mg PO ONETIME ONE Stop: 01/06/18 07:01 Last Admin: 01/06/18 19:58 Dose: Not Given Modafinil (Provigil) 100 mg PO ONETIME ONE Stop: 01/07/18 07:01 Last Admin: 01/07/18 06:51 Dose: 100 mg - Exam Quality Assessment: Supplemental Oxygen, DVT Prophylaxis General: Alert, Oriented, Cooperative, No Acute Distress HEENT: Pupils Equal, EOMI, Mucous Membr. Moist/[place] Neck: Supple Lungs: Normal Respiratory Effort, Decreased Breath Sounds (throughout) Cardiovascular: Regular Rate, Regular Rhythm GI/Abdominal Exam: Normal Bowel Sounds, Soft, Non-Tender (Female) Exam: Deferred Back Exam: Normal Inspection Extremities: No Pedal Edema, Normal Capillary Refill Peripheral Pulses: 1+: Dorsalis Pedis (L), Dorsalis Pedis (R) Neurological: No New Focal Deficit Psy/Mental Status: Alert, Normal Affect, Normal Mood - Problem List & Annotations (1) Altered mental state SNOMED Code(s): 445866378 Code(s): R41.82 - ALTERED MENTAL STATUS, UNSPECIFIED Status: Resolved Priority: High Current Visit: Yes Qualifiers: Altered mental status type: somnolence Qualified Code(s): R40.0 - Somnolence (2) Failure to thrive SNOMED Code(s): 05274808 Code(s): RNN2870 - Status: Acute Priority: High Current Visit: Yes Qualifiers: Failure to thrive age range: in adult Qualified Code(s): R62.7 - Adult failure to thrive (3) Hypoxia SNOMED Code(s): 722972346 Code(s): R09.02 - HYPOXEMIA Status: Chronic Priority: High Current Visit: Yes (4) Chronic low back pain SNOMED Code(s): 876839939 Code(s): M54.5 - LOW BACK PAIN; G89.29 - OTHER CHRONIC PAIN Status: Chronic Priority: Medium Current Visit: Yes Qualifiers: Back pain laterality: right Sciatica laterality: sciatica of right side (5) COPD (chronic obstructive pulmonary disease) SNOMED Code(s): 85465407 Code(s): J44.9 - CHRONIC OBSTRUCTIVE PULMONARY DISEASE, UNSPECIFIED Status : Chronic Priority: Medium Current Visit: Yes Qualifiers: COPD type: unspecified COPD Qualified Code(s): J44.9 - Chronic obstructive pulmonary disease, unspecified (6) Tobacco use disorder SNOMED Code(s): 058247274 Code(s): F17.200 - NICOTINE DEPENDENCE, UNSPECIFIED, UNCOMPLICATED Status: Chronic Priority: Medium Current Visit: Yes (7) Anemia SNOMED Code(s): 525654838 Code(s): D64.9 - ANEMIA, UNSPECIFIED Status: Chronic Priority: High Current Visit: Yes Qualifiers: Anemia type: unspecified type Qualified Code(s): D64.9 - Anemia, unspecified - Problem List Review Problem List Initiated/Reviewed/Updated: Yes - My Orders Last 24 Hours: My Active Orders 01/07/18 06:45 Sodium Chloride 0.9% [Normal Saline] 1,000 ml IV ASDIRECTED 01/07/18 08:08 OT Evaluation and Treatment [CONS] Routine PT Evaluation and Treatment [CONS] Routine 01/07/18 08:09 JASS Hose [Antiembolic Hose] [OM.PC] Routine 01/07/18 08:10 Antiembolic Devices [RC] PER UNIT ROUTINE 01/07/18 08:21 Acetaminophen/HYDROcodone [Chaplin 325-5 MG] 1 tab PO Q4H PRN 01/07/18 09:00 Famotidine [Pepcid] 20 mg PO BID 01/07/18 11:29 Smoking Cessation Education [RC] DAILY 01/07/18 11:30 Nicotine [Habitrol] 21 mg TRDERM DAILY 01/07/18 14:00 cefTRIAXone [Rocephin] 1 gm Dextrose 5% in Water 100 ml IV Q24H 01/07/18 18:13 Magnesium Hydroxide [Milk of Magnesia] 30 ml PO DAILY PRN 01/07/18 21:00 Docusate Sodium [Colace] 100 mg PO BID 01/08/18 05:28 BASIC METABOLIC PANEL,BMP [CHEM] AM MAGNESIUM [CHEM] AM 01/08/18 06:53 FE, TIBC, TRANSFERRIN, FE SAT [CHEM] Routine FOLIC ACID [CHEM] Routine Occult Blood Diagnostic GI [OCCULT BLOOD DIAGNOSTIC] [OP] Routine VITAMIN B12 [CHEM] Routine 01/08/18 09:00 Cholecalciferol (Vitamin D3) [Vitamin D3] 5,000 units PO DAILY - Plan Plan:: Assessment/Plan: Acute: Encephalopathy--resolving- baseline today- resolved - / POLYPHARMACY + Metabolic from low O2 (Hypoxia) - Head CT scan: no acute abnormal findings - CXR: Diffuse interstitial change, prior recent strep pneumo + during prior hospital stay 4 days ago---cont on Rocephin IV QD for now - She is on the following medications: causing sedation, hypnosis or lethargy - Kepra 250 mg po BID - Hydrocodone 10 mg by mouth 3 times a day---change to PRN - Zanaflex 4 mg by mouth as directed--Hold - Vesicare 10 mg by mouth daily - Mirtazapine 30 mg by mouth at bedtime--Hold - Zoloft 50 mg by mouth daily - Baclofen 10 mg by mouth 3 times a day--Hold - Gabapentin: 5 mg by mouth at 8:00 in 1700 and 800 mg by mouth bedtime - +/- Levaquin 750 mg po daily for treatment of PNA---stop, change to rocephin Failure To Thrive/Neglect - Recently treatment with PNA/UTI - Did not do well at home after discharge - Consider custodial placement/assisted living facility -- SW/CM consult Generalized Weakness - Poor intake and inability to care herself - PT/OT consult - Vit D level and thyroid panel---TSH FT4 WNL, Vit D very low at 7,- start on supplement 5,000IU daily x 2 weeks then to 2,000IU daily Hypovitaminosis D- level is 7 -Start supplement as above Severe Polypharmacy - In house pharmacy to review home meds and make further recommendations -Discussed with Pharmacist this morning, changes made COPD -Oxygen dependent, keep O2 sats >90% -RT/IS/nebs -Prednisone PO Tobacco use disorder -Smoking cessation education -Nicotine patch Anemia- worsening; initially at 10, then to 9 today is 8.8 -No evidence of active bleeding -Will check iron studies, B12, folic acid and occult stool. -DC IVF as some may be dilutional Chronic: HTN- stable HLD Asthma Advanced COPD, w/o Exacerbation--O2 dependent ILD/Pulmonary Fibrosis GERD Anemia- chronic, as above Abdominal/Thoracic Aneurysm Hx/o CVA Pain Syndrome--chronic LBP, unchanged OAB/Urge Incontinence Neuropathy Nicotine Dependence- as above Recent UTI- treated Depression- stable Plan: Admit to the floor Resume Some Home Medications Oral stimulant x1 in AM- is now awake and alert no need for further provigil Routine AM Labs Vitamin D and Thyroid Panel- as noted above low vit D level PT/OT/RT consult Aspiration/Fall Precautions SW/CM for d/c planning--at this point recommend SNF stay, DC pending placement. Code status: 1 PCP is Mary Luo with [facility]
[2018-01-08] MEDS: Tiotropium Inhaler 18 MCG Inhalation Powder Cap Kit of 5 INH SCH (09:00)
[2018-01-08] MEDS: Potassium Chloride 10 MEQ Tab.ER PO SCH ×2 (09:29→16:02)
[2018-01-08] MEDS: predniSONE 20 MG Tab PO SCH (09:31)
[2018-01-08] MEDS: Sertraline 50 MG Tab PO SCH (09:31)
[2018-01-08] MEDS: Famotidine 20 MG Tab PO SCH ×3 (09:33→21:00)
[2018-01-08] MEDS: Clopidogrel 75 MG Tab PO SCH (09:33)
[2018-01-08] MEDS: Rosuvastatin 10 MG Tab PO SCH (09:34)
[2018-01-08] MEDS: Docusate Sodium 100 MG Cap PO SCH ×3 (09:35→20:59)
[2018-01-08] MEDS: Cholecalciferol (Vitamin D3) 1,000 Unit Tab PO SCH (09:37)
[2018-01-08] MEDS: Saccharomyces Boulardii (Probiotic) 250 MG Cap PO SCH (09:37)
[2018-01-08] MEDS: amLODIPine 5 MG Tab PO SCH (09:38)
[2018-01-08] MEDS: levETIRAcetam Soln 500 MG/5 ML Cup PO SCH ×3 (09:39→21:00)
[2018-01-08] MEDS: Gabapentin 100 MG Cap PO SCH ×4 (09:41→21:00)
[2018-01-08] MEDS: Losartan 100 MG Tab PO SCH (09:54)
[2018-01-08] MEDS: Nicotine 21 MG/24 Hr Patch TRDERM SCH (09:54)
[2018-01-08] MEDS: Acetaminophen/HYDROcodone 325-5 MG Tab PO PRN ×2 (10:43→15:25)
[2018-01-08] MEDS ORDERED: Potassium Chloride 20 MEQ Tab.ER PO ONE (12:00)
[2018-01-08] MEDS: Folic Acid 1 MG Tab PO SCH (12:44)
[2018-01-08] MEDS: cefTRIAXone 1 GM in Dextrose 5% in Water 100 ML IV SCH ×2 (14:43)
[2018-01-08] MEDS: Loratadine 10 MG Tab PO SCH ×2 (19:52→20:59)
[2018-01-08] MEDS: VESICARE 10 MG PO SCH ×2 (19:52→21:01)
[2018-01-08] MEDS: Gabapentin 600 MG Tab PO SCH ×2 (19:54→21:00)
[2018-01-09] MEDS: Acetaminophen/HYDROcodone 325-5 MG Tab PO PRN ×2 (02:32→12:50)
[2018-01-09] MEDS: Potassium Chloride 10 MEQ Tab.ER PO SCH ×2 (06:07→17:23)
[2018-01-09] MEDS: Formoterol/Mometasone 200-5 MCG 8.8 GM Inhaler IH SCH ×2 (06:12→20:28)
[2018-01-09] MEDS ORDERED: predniSONE 10 MG Tab PO SCH (07:00)
[2018-01-09] MEDS: Tiotropium Inhaler 18 MCG Inhalation Powder Cap Kit of 5 INH SCH (09:12)
[2018-01-09] MEDS: Magnesium Hydroxide 400 MG/5 ML Susp 30 ML Cup PO PRN (10:29)
[2018-01-09] MEDS: Saccharomyces Boulardii (Probiotic) 250 MG Cap PO SCH (10:29)
[2018-01-09] MEDS: Sertraline 50 MG Tab PO SCH (10:29)
[2018-01-09] MEDS: Cholecalciferol (Vitamin D3) 1,000 Unit Tab PO SCH (10:29)
[2018-01-09] MEDS: Rosuvastatin 10 MG Tab PO SCH (10:30)
[2018-01-09] MEDS: Famotidine 20 MG Tab PO SCH ×2 (10:30→22:11)
[2018-01-09] MEDS: amLODIPine 5 MG Tab PO SCH (10:30)
[2018-01-09] MEDS: Losartan 100 MG Tab PO SCH (10:30)
[2018-01-09] MEDS: Docusate Sodium 100 MG Cap PO SCH ×2 (10:30→22:08)
[2018-01-09] MEDS: Folic Acid 1 MG Tab PO SCH (10:30)
[2018-01-09] MEDS: Nicotine 21 MG/24 Hr Patch TRDERM SCH (10:31)
[2018-01-09] MEDS: Clopidogrel 75 MG Tab PO SCH (10:31)
[2018-01-09] MEDS: levETIRAcetam Soln 500 MG/5 ML Cup PO SCH ×2 (10:32→22:09)
[2018-01-09] MEDS: Gabapentin 100 MG Cap PO SCH ×3 (10:36→22:10)
[2018-01-09] MEDS: cefTRIAXone 1 GM in Dextrose 5% in Water 100 ML IV SCH ×2 (13:14)
--- NOTE | 2018-01-09 13:25 | PCM.PN ---
- General Info Date of Service: 01/09/18 Functional Status: Reports: Pain Controlled, Tolerating Diet, Ambulating, Urinating - Review of Systems General: Reports: No Symptoms HEENT: Reports: No Symptoms Pulmonary: Reports: No Symptoms Cardiovascular: Reports: No Symptoms Gastrointestinal: Reports: No Symptoms Genitourinary: Reports: No Symptoms Musculoskeletal: Reports: No Symptoms Skin: Reports: No Symptoms Neurological: Reports: No Symptoms Psychiatric: Reports: No Symptoms - Patient Data Vitals - Most Recent: Last Vital Signs Temp 36.9 C 01/09/18 11:41 Pulse 71 01/09/18 11:41 Resp 24 H 01/09/18 11:41 BP 121/85 01/09/18 11:41 Pulse Ox 92 L 01/09/18 11:41 Weight - Most Recent: 67.812 kg I&O - Last 24 Hours: Intake & Output 01/08/18 01/09/18 01/09/18 22:59 06:59 14:59 Intake Total 2020 800 300 Output Total 1200 2700 Balance 820 -1900 300 Lab Results Last 24 Hours: Laboratory Results - last 24 hr 01/09/18 Range/Units 11:30 WBC 8.87 (3.98-10.04) K/mm3 RBC 3.52 L (3.98-5.22) M/mm3 Hgb 10.6 L (11.2-15.7) gm/L Hct 34.2 (34.1-44.9) % MCV 97.2 H (79.4-94.8) fl MCH 30.1 (25.6-32.2) pg MCHC 31.0 L (32.2-35.5) g/dl RDW Std Deviation 49.2 H (36.4-46.3) fL Plt Count 299 (182-369) K/mm3 MPV 11.0 (9.4-12.3) fl Neut % (Auto) 85.0 H (34.0-71.1) % Lymph % (Auto) 8.9 L (19.3-51.7) % [place] % (Auto) 5.1 (4.7-12.5) % Eos % (Auto) 0.3 L (0.7-5.8) Baso % (Auto) 0.1 (0.1-1.2) % Neut # (Auto) 7.54 H (1.56-6.13) K/mm3 Lymph # (Auto) 0.79 L (1.18-3.74) K/mm3 [place] # (Auto) 0.45 H (0.24-0.36) K/mm3 Eos # (Auto) 0.03 L (0.04-0.36) K/mm3 Baso # (Auto) 0.01 (0.01-0.08) K/mm3 Manual Slide Review Normal smear Med Orders - Current: Current Medications Hydrocodone Bitart/Acetaminophen ([place] 325-5 Mg) 1 tab PO Q4H PRN PRN Reason: Pain Last Admin: 01/09/18 12:50 Dose: 1 tab Albuterol (Proventil Hfa) 0 gm INH QID PRN PRN Reason: Shortness of Breath Amlodipine Besylate (Norvasc) 5 mg PO DAILY [facility] Last Admin: 01/09/18 10:30 Dose: 5 mg Cholecalciferol (Vitamin D3) 5,000 units PO DAILY [facility] Last Admin: 01/09/18 10:29 Dose: 5,000 units Clonidine HCl (Catapres-Tts 3) 0.3 mg TOP Sa@0900 [facility] Last Admin: 01/07/18 17:06 Dose: 0.3 mg Clopidogrel Bisulfate (Plavix) 75 mg PO DAILY [facility] Last Admin: 01/09/18 10:31 Dose: 75 mg Docusate Sodium (Colace) 100 mg PO BID [facility] Last Admin: 01/09/18 10:30 Dose: 100 mg Famotidine (Pepcid) 20 mg PO BID [facility] Last Admin: 01/09/18 10:30 Dose: 20 mg Folic Acid (Folic Acid) 1 mg PO DAILY [facility] Last Admin: 01/09/18 10:30 Dose: 1 mg Gabapentin (Neurontin) 400 mg PO BID@0800,1700 [facility] Last Admin: 01/09/18 10:36 Dose: 400 mg Gabapentin (Neurontin) 600 mg PO BEDTIME [facility] Last Admin: 01/08/18 21:00 Dose: Not Given Gabapentin (Neurontin) 200 mg PO BEDTIME [facility] Last Admin: 01/08/18 21:00 Dose: Not Given Hydralazine HCl (Apresoline) 20 mg IVPUSH Q4H PRN PRN Reason: Hypertension Ceftriaxone Sodium 1 gm/ (Dextrose/Water) 100 mls @ 200 mls/hr IV Q24H [facility] Stop: 01/09/18 16:00 Last Admin: 01/09/18 13:14 Dose: 200 mls/hr Doxycycline Hyclate 100 mg/ (Sodium Chloride) 100 mls @ 100 mls/hr IV Q12H [facility] Levetiracetam (Keppra) 250 mg PO BID [facility] Last Admin: 01/09/18 10:32 Dose: 250 mg Loratadine (Claritin) 10 mg PO BEDTIME [facility] Last Admin: 01/08/18 20:59 Dose: Not Given Lorazepam (Ativan) 2 mg IVPUSH Q4H PRN PRN Reason: Seizures Losartan Potassium (Cozaar) 100 mg PO DAILY [facility] Last Admin: 01/09/18 10:30 Dose: 100 mg Magnesium Hydroxide (Milk Of Magnesia) 30 ml PO DAILY PRN PRN Reason: Constipation Last Admin: 01/09/18 10:29 Dose: 30 ml Metoprolol Tartrate (Lopressor) 5 mg IVPUSH Q4H PRN PRN Reason: Tachycardia Miscellaneous Information (Remove Patch) 1 ea TRDERM Sa@0900 [facility] Miscellaneous Information (Remove Patch) 0 ea TRDERM DAILY [facility] Last Admin: 01/09/18 10:32 Dose: Not Given Mometasone Furoate/Formoterol Fumar (Dulera 200-5 Mcg) 2 puff IH BIDRT [facility] Last Admin: 01/09/18 06:12 Dose: 2 puff Nicotine (Habitrol) 21 mg TRDERM DAILY [facility] Last Admin: 01/09/18 10:31 Dose: Not Given Vesicare 10 Mg Tab * (Pt Own Med*) 1 each PO BEDTIME [facility] Last Admin: 01/08/18 21:01 Dose: Not Given Polyethylene Glycol (Miralax) 17 gm PO DAILY PRN PRN Reason: Constipation Potassium Chloride (Klor-Con 10) 10 meq PO BIDMEALS [facility] Last Admin: 01/09/18 06:07 Dose: 10 meq Rosuvastatin Calcium (Crestor) 10 mg PO DAILY [facility] Last Admin: 01/09/18 10:30 Dose: 10 mg Saccharomyces Boulardii (Florastor) 250 mg PO DAILY [facility] Last Admin: 01/09/18 10:29 Dose: 250 mg Sertraline HCl (Zoloft) 50 mg PO DAILY [facility] Last Admin: 01/09/18 10:29 Dose: 50 mg Sodium Chloride (Saline Flush) 10 ml FLUSH ASDIRECTED PRN PRN Reason: Keep Vein Open Last Admin: 01/06/18 15:44 Dose: 10 ml Tiotropium [place] (Spiriva Handihaler) 18 mcg INH DAILY [facility] Last Admin: 01/09/18 09:12 Dose: 1 cap Discontinued Medications Hydrocodone Bitart/Acetaminophen ([place] 325-10 Mg) 1 tab PO TID [facility] Last Admin: 01/07/18 05:17 Dose: 1 tab Hydrocodone Bitart/Acetaminophen ([place] 325-10 Mg) 1 tab PO Q8H [facility] Last Admin: 01/07/18 06:50 Dose: Not Given Albuterol/Ipratropium (Duoneb 3.0-0.5 Mg/3 Ml) 3 ml NEB ONETIME ONE Stop: 01/06/18 14:28 Last Admin: 01/06/18 14:33 Dose: 3 ml Albuterol/Ipratropium (Duoneb 3.0-0.5 Mg/3 Ml) Confirm Administered Dose 3 ml .ROUTE .STK-MED ONE Stop: 01/06/18 14:35 Last Admin: 01/06/18 14:33 Dose: Not Given Azithromycin (Zithromax) 250 mg PO DAILY [facility] Diphenhydramine HCl (Benadryl) 25 mg IVPUSH ONETIME ONE Stop: 01/07/18 21:12 Last Admin: 01/07/18 21:34 Dose: 25 mg Doxycycline Hyclate (Vibramycin) 100 mg PO BID [facility] Last Admin: 01/06/18 22:12 Dose: Not Given Sodium Chloride (Normal Saline) 1,000 mls @ 125 mls/hr IV ASDIRECTED [facility] Last Admin: 01/06/18 15:43 Dose: 125 mls/hr Ceftriaxone Sodium 2 gm/ (Sodium Chloride) 100 mls @ 100 mls/hr IV ONETIME ONE Stop: 01/06/18 17:11 Last Admin: 01/06/18 16:17 Dose: 100 mls/hr Sodium Chloride (Normal Saline) 1,000 mls @ 50 mls/hr IV ASDIRECTED [facility] Last Admin: 01/07/18 22:08 Dose: 50 mls/hr Magnesium Sulfate (Pharmacy To Dose - Magnesium Replacement) 1 dose .XX ASDIRECTED [facility] Methylprednisolone Sodium Succinate (Solu-Medrol) 40 mg IVPUSH ONETIME ONE Stop: 01/06/18 19:29 Last Admin: 01/06/18 21:30 Dose: 40 mg Mirtazapine (Remeron) 30 mg PO BEDTIME [facility] Last Admin: 01/06/18 22:12 Dose: Not Given Modafinil (Provigil) 100 mg PO ONETIME ONE Stop: 01/06/18 07:01 Last Admin: 01/06/18 19:58 Dose: Not Given Modafinil (Provigil) 100 mg PO ONETIME ONE Stop: 01/07/18 07:01 Last Admin: 01/07/18 06:51 Dose: 100 mg Potassium Chloride (Pharmacy To Dose - Potassium Replacement) 1 dose .XX ASDIRECTED [facility] Potassium Chloride (Klor-Con M20) 40 meq PO ONETIME ONE Stop: 01/08/18 12:01 Last Admin: 01/08/18 12:45 Dose: 40 meq Prednisone (Prednisone) 60 mg PO WITHBREAKFAST [facility] Last Admin: 01/08/18 09:31 Dose: 60 mg Prednisone (Prednisone) 30 mg PO WITHBREAKFAST [facility] Stop: 01/09/18 07:01 Last Admin: 01/09/18 06:07 Dose: 30 mg Trospium (Sanctura) 20 mg PO BIDAC [facility] Last Admin: 01/08/18 06:13 Dose: 20 mg - Exam Quality Assessment: Supplemental Oxygen, DVT Prophylaxis General: Alert, Oriented, Cooperative, No Acute Distress HEENT: Pupils Equal, Pupils Reactive, EOMI Neck: Trachea Midline, No JVD Lungs: Normal Respiratory Effort Cardiovascular: Regular Rate, Regular Rhythm GI/Abdominal Exam: Normal Bowel Sounds, Soft, Non-Tender, No Organomegaly, No Distention (Female) Exam: Deferred Back Exam: Normal Inspection Extremities: Normal Inspection Skin: Warm, Dry, Intact, Other (nickel size blister near umbilicus) Neurological: No New Focal Deficit Psy/Mental Status: Alert, Normal Affect, Normal Mood - Problem List Review Problem List Initiated/Reviewed/Updated: Yes - My Orders Last 24 Hours: My Active Orders 01/09/18 14:00 Doxycycline [Vibramycin] 100 mg Sodium Chloride 0.9% [Normal Saline] 100 ml IV Q12H - Plan Plan:: Assessment/Plan: Acute: Encephalopathy--resolving- baseline today---> resolved - 2/2 POLYPHARMACY + Metabolic from low O2 (Hypoxia) - Head CT scan: no acute abnormal findings - CXR: Diffuse interstitial change, prior recent strep pneumo + during prior hospital stay 4 days ago---cont on Rocephin IV QD for now - She is on the following medications: causing sedation, hypnosis or lethargy - Kepra 250 mg po BID - Hydrocodone 10 mg by mouth 3 times a day---change to PRN - Zanaflex 4 mg by mouth as directed--Hold - Vesicare 10 mg by mouth daily - Mirtazapine 30 mg by mouth at bedtime--Hold - Zoloft 50 mg by mouth daily - Baclofen 10 mg by mouth 3 times a day--Hold - Gabapentin: 5 mg by mouth at 8:00 in 1700 and 800 mg by mouth bedtime - +/- Levaquin 750 mg po daily for treatment of PNA---stop, change to rocephin Failure To Thrive/Neglect - Recently treatment with PNA/UTI - Did not do well at home after discharge - Consider fdc placement/assisted living facility -- SW/CM consult Generalized Weakness - Poor intake and inability to care herself - PT/OT consult - Vit D level and thyroid panel---TSH FT4 WNL, Vit D very low at 7,- start on supplement 5,000IU daily x 2 weeks then to 2,000IU daily Hypovitaminosis D- level is 7 -Start supplement as above Severe Polypharmacy - In house pharmacy to review home meds and make further recommendations -Discussed with Pharmacist this morning, changes made COPD -Oxygen dependent, keep O2 sats >90% -RT/IS/nebs -Prednisone PO Tobacco use disorder -Smoking cessation education -Nicotine patch Anemia- worsening; initially at 10, then to 9 today is 8.8 -No evidence of active bleeding -Will check iron studies, B12, folic acid and occult stool. -DC IVF as some may be dilutional Skin rash--->blister; history of staph infection on prophylactic doxycycline Chronic: HTN- stable HLD Asthma Advanced COPD, w/o Exacerbation--O2 dependent ILD/Pulmonary Fibrosis GERD Anemia- chronic, as above Abdominal/Thoracic Aneurysm Hx/o CVA Pain Syndrome--chronic LBP, unchanged OAB/Urge Incontinence Neuropathy Nicotine Dependence- as above Recent UTI- treated Depression- stable Plan: Resume Some Home Medications Oral stimulant x1 in AM- is now awake and alert no need for further provigil Routine AM Labs Vitamin D and Thyroid Panel- as noted above low vit D level PT/OT/RT consult Aspiration/Fall Precautions SW/CM for d/c planning--at this point recommend SNF stay, DC pending placement. Code status: 1 PCP is Mary Luo with [facility] LOS>96 hours with recovery of function and response to medical management; dc after placement is determined.
[2018-01-09] MEDS: Doxycycline 100 MG in Sodium Chloride 0.9% 100 ML IV SCH (14:21)
[2018-01-09] MEDS: Loratadine 10 MG Tab PO SCH (22:08)
[2018-01-09] MEDS: Gabapentin 600 MG Tab PO SCH (22:10)
[2018-01-09] MEDS: VESICARE 10 MG PO SCH (22:11)
[2018-01-10] MEDS: Doxycycline 100 MG in Sodium Chloride 0.9% 100 ML IV SCH (04:04)
[2018-01-10] MEDS: Formoterol/Mometasone 200-5 MCG 8.8 GM Inhaler IH SCH (06:42)
[2018-01-10] MEDS: Potassium Chloride 10 MEQ Tab.ER PO SCH (07:01)
[2018-01-10] MEDS: Nicotine 21 MG/24 Hr Patch TRDERM SCH (08:17)
[2018-01-10] MEDS: Cholecalciferol (Vitamin D3) 1,000 Unit Tab PO SCH (08:23)
[2018-01-10] MEDS: amLODIPine 5 MG Tab PO SCH (08:24)
[2018-01-10] MEDS: Rosuvastatin 10 MG Tab PO SCH (08:24)
[2018-01-10] MEDS: Sertraline 50 MG Tab PO SCH (08:24)
[2018-01-10] MEDS: Losartan 100 MG Tab PO SCH (08:24)
[2018-01-10] MEDS: Famotidine 20 MG Tab PO SCH (08:25)
[2018-01-10] MEDS: Saccharomyces Boulardii (Probiotic) 250 MG Cap PO SCH (08:25)
[2018-01-10] MEDS: Clopidogrel 75 MG Tab PO SCH (08:25)
[2018-01-10] MEDS: Docusate Sodium 100 MG Cap PO SCH (08:25)
[2018-01-10] MEDS: levETIRAcetam Soln 500 MG/5 ML Cup PO SCH (08:25)
[2018-01-10] MEDS: Folic Acid 1 MG Tab PO SCH (08:25)
[2018-01-10] MEDS: Gabapentin 100 MG Cap PO SCH (08:25)
[2018-01-10] MEDS: cloNIDine 0.3 MG/Day Transdermal Patch TOP SCH (08:26)
[2018-01-10] MEDS: Tiotropium Inhaler 18 MCG Inhalation Powder Cap Kit of 5 INH SCH (08:54)
[2018-01-10] MEDS: Acetaminophen/HYDROcodone 325-5 MG Tab PO PRN (10:46)
[2018-01-10] MEDS ORDERED: Doxycycline 100 MG Cap PO SCH (11:15)
--- NOTE | 2018-01-10 12:02 | PCM.DCSUM1 ---
Discharge Summary - Hospital Course Free Text/Narrative:: This is a 57 year old female with past medical hx/o HTN, HLD, Asthma, Advanced COPD, ILD/Pulmonary Fibrosis, GERD, Anemia, Abdominal/Thoracic Aneurysm, Hx/o CVA, Chronic Pain Syndrome, OAB/Urge Incontinence, Neuropathy, Nicotine Dependence, Recent UTI, and Depression who was brought in by EMS due to AMS. Patient was not able to provide HPI due to AMS. Her family found her unresponsive at home. When EMS arrived, she would moan/ groan and answers some questions. However in ED, she would follow minimal commands and able to move all four extremities. Her initial work up in ED shows a CBC remarkable for WBC of 10.92, RBC of 3.49, hemoglobin of 10.6, MCV of 98.3, MCH of 30.9, RDW of 15.4, neutrophils of 74.3% and lymphocytes of 17.2%. Her ABG shows a pH of 7.44, PCO2 of 36, PO2 of 54, HCO3 of 22.8, O2 saturation of 89%, on 1.5 L nasal cannula with FiO2 of 26%. Her chemistry is remarkable for anion gap of 15.9, BUN of 20, alkaline phosphatase of 130, CRP of 19.3, and albumin of 2.3. Her UA is negative for urinary tract infection. Her UDS is positive for opiates and benzodiazepine. Her SAJI is 0. Her chest x-ray shows diffuse interstitial change without acute abnormal findings. Her head CT scan shows no acute intracranial abnormality. Patient is being admitted for altered mental status. She is a full code. - Discharge Data Discharge Date: 01/10/18 Discharge Disposition: Home, Self-Care 01 Condition: Good - Patient Summary/Data Consults: Consultations 01/07/18 08:08 OT Evaluation and Treatment [CONS] Routine PT Evaluation and Treatment [CONS] Routine - Patient Instructions Diet: Heart Healthy Diet, Usual Diet as Tolerated Activity: As Tolerated Driving: Do Not Drive Showering/Bathing: May Shower Notify Provider of: Fever, Nausea and/or Vomiting - Discharge Plan Home Medications: Home Meds amLODIPine Besylate [Amlodipine Besylate] 5 mg PO DAILY 03/25/15 [History] Gabapentin [Neurontin] 400 mg PO 0800,1700 06/22/15 [History] Losartan Potassium [Cozaar] 100 mg PO DAILY 06/22/15 [History] Potassium Chloride 10 meq PO BID 06/22/15 [History] Solifenacin Succinate [Vesicare] 10 mg PO BEDTIME 06/22/15 [History] cloNIDine [Catapres-TTS 3] 0.3 mg TOP SA 06/22/15 [History] levETIRAcetam [Keppra] 250 mg PO BID 06/22/15 [History] Baclofen 10 mg PO TID PRN 03/21/17 [History] Clopidogrel [Plavix] 75 mg PO DAILY 03/21/17 [History] Gabapentin [Neurontin] 800 mg PO BEDTIME 03/21/17 [History] Hydrocodone/Acetaminophen [Hydrocodon-Acetaminophn 10-325] 1 tab PO TID [History] Mirtazapine 30 mg PO BEDTIME 03/21/17 [History] Albuterol [Proventil HFA] 2 puff INH QID PRN 12/29/17 [History] L.acidoph,Paracasei, B.lactis [Probiotic] 1 tab PO DAILY 12/29/17 [History] Polyethylene Glycol 3350 [Miralax] 17 gm PO DAILY PRN 12/29/17 [History] Doxycycline [Vibramycin] 100 mg PO BID 01/06/18 [History] Sertraline HCl [Zoloft] 50 mg PO DAILY 01/06/18 [History] Gabapentin [Neurontin] 600 mg PO QID 01/07/18 [History] tiZANidine [Zanaflex] 4 - 8 mg PO BEDTIME PRN 01/07/18 [History] Cholecalciferol (Vitamin D3) [Vitamin D3] 5,000 units PO DAILY tablet 01/10/18 [Rx] Rosuvastatin [Crestor] 10 mg PO DAILY tablet 01/10/18 [Rx] Patient Handouts: Steps to Quit Smoking Forms: ED Department Discharge Referrals: Meryl Luo PA-C [Primary Care Provider] - - Discharge Summary/Plan Comment DC Time >30 min.: No Discharge Summary/Plan Comment: Assessment/Plan: Acute: Encephalopathy----> resolved - 2/2 POLYPHARMACY + Metabolic from low O2 (Hypoxia) - Head CT scan: no acute abnormal findings - CXR: Diffuse interstitial change, prior recent strep pneumo + during prior hospital stay 4 days ago---cont on Rocephin IV QD for now - She is on the following medications: causing sedation, hypnosis or lethargy - Kepra 250 mg po BID - Hydrocodone 10 mg by mouth 3 times a day---change to PRN - Zanaflex 4 mg by mouth as directed--Hold - Vesicare 10 mg by mouth daily - Mirtazapine 30 mg by mouth at bedtime--Hold - Zoloft 50 mg by mouth daily - Baclofen 10 mg by mouth 3 times a day--Hold - Gabapentin: 5 mg by mouth at 8:00 in 1700 and 800 mg by mouth bedtime - +/- Levaquin 750 mg po daily for treatment of PNA---stop, change to rocephin Failure To Thrive/Neglect - Recently treatment with PNA/UTI - Did not do well at home after discharge - Consider halfway placement/assisted living facility -- SW/CM consult Generalized Weakness - Poor intake and inability to care herself - PT/OT consult - Vit D level and thyroid panel---TSH FT4 WNL, Vit D very low at 7,- start on supplement 5,000IU daily x 2 weeks then to 2,000IU daily Hypovitaminosis D- level is 7 -Start supplement as above Severe Polypharmacy - In house pharmacy to review home meds and make further recommendations -Discussed with Pharmacist this morning, changes made COPD -Oxygen dependent, keep O2 sats >90% -RT/IS/nebs -Prednisone PO Tobacco use disorder -Smoking cessation education -Nicotine patch Anemia- worsening; initially at 10, then to 9 today is 8.8 -No evidence of active bleeding -Will check iron studies, B12, folic acid and occult stool. -DC IVF as some may be dilutional Skin rash--->blister; history of staph infection on prophylactic doxycycline, to be contin ued. Chronic: HTN- stable HLD Asthma Advanced COPD, w/o Exacerbation--O2 dependent ILD/Pulmonary Fibrosis GERD Anemia- chronic, as above Abdominal/Thoracic Aneurysm Hx/o CVA Pain Syndrome--chronic LBP, unchanged OAB/Urge Incontinence Neuropathy Nicotine Dependence- as above Recent UTI- treated Depression- stable Plan: Resume Some Home Medications Oral stimulant x1 in AM- is now awake and alert, therefore no need for further provigil Vitamin D and Thyroid Panel- as noted above low vit D level PT/OT/RT consult-->continue prg as OP. SW/CM for d/c planning--home today Code status: 1 PCP is Mary Luo with [facility] LOS>96 hours with recovery of function and response to medical management; dc to home. - General Info Date of Service: 01/06/18 Functional Status: Reports: Tolerating Diet, Ambulating, Urinating - Review of Systems General: Reports: Weakness HEENT: Reports: No Symptoms Pulmonary: Reports: Shortness of Breath (baseline) Cardiovascular: Reports: No Symptoms Gastrointestinal: Reports: No Symptoms Genitourinary: Reports: No Symptoms Musculoskeletal: Reports: No Symptoms Skin: Reports: No Symptoms Neurological: Reports: No Symptoms Psychiatric: Reports: No Symptoms - Patient Data Vitals - Most Recent: Last Vital Signs Temp 36.6 C 01/10/18 08:20 Pulse 74 01/10/18 08:20 Resp 18 01/10/18 08:20 BP 116/64 01/10/18 08:24 Pulse Ox 95 01/10/18 08:55 Weight - Most Recent: 68.175 kg I&O - Last 24 hours: Intake & Output 01/09/18 01/10/18 01/10/18 22:59 06:59 14:59 Intake Total 1840 500 300 Output Total 1200 850 Balance 640 -350 300 Lab Results - Last 24 hrs: Laboratory Results - last 24 hr 01/09/18 01/10/18 01/10/18 Range/Units 11:30 06:45 06:45 WBC 8.87 7.89 (3.98-10.04) K/mm3 RBC 3.52 L 3.55 L (3.98-5.22) M/mm3 Hgb 10.6 L 10.6 L (11.2-15.7) gm/L Hct 34.2 34.4 (34.1-44.9) % MCV 97.2 H 96.9 H (79.4-94.8) fl MCH 30.1 29.9 (25.6-32.2) pg MCHC 31.0 L 30.8 L (32.2-35.5) g/dl RDW Std Deviation 49.2 H 49.5 H (36.4-46.3) fL Plt Count 299 306 (182-369) K/mm3 MPV 11.0 10.9 (9.4-12.3) fl Neut % (Auto) 85.0 H 49.6 (34.0-71.1) % Lymph % (Auto) 8.9 L 39.7 (19.3-51.7) % [place] % (Auto) 5.1 8.9 (4.7-12.5) % Eos % (Auto) 0.3 L 0.6 L (0.7-5.8) Baso % (Auto) 0.1 0.1 (0.1-1.2) % Neut # (Auto) 7.54 H 3.91 (1.56-6.13) K/mm3 Lymph # (Auto) 0.79 L 3.13 (1.18-3.74) K/mm3 [place] # (Auto) 0.45 H 0.70 H (0.24-0.36) K/mm3 Eos # (Auto) 0.03 L 0.05 (0.04-0.36) K/mm3 Baso # (Auto) 0.01 0.01 (0.01-0.08) K/mm3 Manual Slide Review Normal smear Sodium 137 (136-145) mEq/L Potassium 4.4 (3.5-5.1) mEq/L Chloride 102 (98-107) mEq/L Carbon Dioxide 27 (21-32) mEq/L Anion Gap 12.4 (5-15) BUN 18 (7-18) mg/dL Creatinine 0.9 (0.55-1.02) mg/dL Est Cr Clr Drug Dosing 64.56 mL/min Estimated GFR (MDRD) > 60 (>60) mL/min BUN/Creatinine Ratio 20.0 H (14-18) Glucose 87 (74-106) mg/dL Calcium 8.7 (8.5-10.1) mg/dL Magnesium 2.3 (1.8-2.4) mg/dl C-Reactive Protein 0.5 (<1.0) mg/dL [facility] Results - Last 24 hrs: Microbiology 01/09/18 15:30 Stool Occult Blood (NBA) - Final Stool / Feces Med Orders - Current: Current Medications Hydrocodone Bitart/Acetaminophen ([place] 325-5 Mg) 1 tab PO Q4H PRN PRN Reason: Pain Last Admin: 01/10/18 10:46 Dose: 1 tab Albuterol (Proventil Hfa) 0 gm INH QID PRN PRN Reason: Shortness of Breath Amlodipine Besylate (Norvasc) 5 mg PO DAILY [facility] Last Admin: 01/10/18 08:24 Dose: 5 mg Cholecalciferol (Vitamin D3) 5,000 units PO DAILY [facility] Last Admin: 01/10/18 08:23 Dose: 5,000 units Clonidine HCl (Catapres-Tts 3) 0.3 mg TOP Sa@0900 [facility] Last Admin: 01/10/18 08:26 Dose: 0.3 mg Clopidogrel Bisulfate (Plavix) 75 mg PO DAILY [facility] Last Admin: 01/10/18 08:25 Dose: 75 mg Docusate Sodium (Colace) 100 mg PO BID [facility] Last Admin: 01/10/18 08:25 Dose: 100 mg Doxycycline Hyclate (Vibramycin) 100 mg PO BID [facility] Last Admin: 01/10/18 11:52 Dose: 100 mg Famotidine (Pepcid) 20 mg PO BID [facility] Last Admin: 01/10/18 08:25 Dose: 20 mg Folic Acid (Folic Acid) 1 mg PO DAILY [facility] Last Admin: 01/10/18 08:25 Dose: 1 mg Gabapentin (Neurontin) 400 mg PO BID@0800,1700 [facility] Last Admin: 01/10/18 08:25 Dose: 400 mg Gabapentin (Neurontin) 600 mg PO BEDTIME [facility] Last Admin: 01/09/18 22:10 Dose: 600 mg Gabapentin (Neurontin) 200 mg PO BEDTIME [facility] Last Admin: 01/09/18 22:10 Dose: 200 mg Hydralazine HCl (Apresoline) 20 mg IVPUSH Q4H PRN PRN Reason: Hypertension Levetiracetam (Keppra) 250 mg PO BID [facility] Last Admin: 01/10/18 08:25 Dose: 250 mg Loratadine (Claritin) 10 mg PO BEDTIME [facility] Last Admin: 01/09/18 22:08 Dose: 10 mg Lorazepam (Ativan) 2 mg IVPUSH Q4H PRN PRN Reason: Seizures Losartan Potassium (Cozaar) 100 mg PO DAILY [facility] Last Admin: 01/10/18 08:24 Dose: 100 mg Magnesium Hydroxide (Milk Of Magnesia) 30 ml PO DAILY PRN PRN Reason: Constipation Last Admin: 01/09/18 10:29 Dose: 30 ml Metoprolol Tartrate (Lopressor) 5 mg IVPUSH Q4H PRN PRN Reason: Tachycardia Miscellaneous Information (Remove Patch) 1 ea TRDERM Sa@0900 [facility] Last Admin: 01/10/18 08:27 Dose: 1 ea Miscellaneous Information (Remove Patch) 0 ea TRDERM DAILY [facility] Last Admin: 01/10/18 08:16 Dose: Not Given Mometasone Furoate/Formoterol Fumar (Dulera 200-5 Mcg) 2 puff IH BIDRT [facility] Last Admin: 01/10/18 06:42 Dose: 2 puff Nicotine (Habitrol) 21 mg TRDERM DAILY [facility] Last Admin: 01/10/18 08:17 Dose: Not Given Vesicare 10 Mg Tab * (Pt Own Med*) 1 each PO BEDTIME [facility] Last Admin: 01/09/18 22:11 Dose: 1 each Polyethylene Glycol (Miralax) 17 gm PO DAILY PRN PRN Reason: Constipation Potassium Chloride (Klor-Con 10) 10 meq PO BIDMEALS [facility] Last Admin: 01/10/18 07:01 Dose: 10 meq Rosuvastatin Calcium (Crestor) 10 mg PO DAILY [facility] Last Admin: 01/10/18 08:24 Dose: 10 mg Saccharomyces Boulardii (Florastor) 250 mg PO DAILY [facility] Last Admin: 01/10/18 08:25 Dose: 250 mg Sertraline HCl (Zoloft) 50 mg PO DAILY [facility] Last Admin: 01/10/18 08:24 Dose: 50 mg Sodium Chloride (Saline Flush) 10 ml FLUSH ASDIRECTED PRN PRN Reason: Keep Vein Open Last Admin: 01/06/18 15:44 Dose: 10 ml Tiotropium [place] (Spiriva Handihaler) 18 mcg INH DAILY [facility] Last Admin: 01/10/18 08:54 Dose: 1 cap Discontinued Medications Hydrocodone Bitart/Acetaminophen ([place] 325-10 Mg) 1 tab PO TID [facility] Last Admin: 01/07/18 05:17 Dose: 1 tab Hydrocodone Bitart/Acetaminophen ([place] 325-10 Mg) 1 tab PO Q8H [facility] Last Admin: 01/07/18 06:50 Dose: Not Given Albuterol/Ipratropium (Duoneb 3.0-0.5 Mg/3 Ml) 3 ml NEB ONETIME ONE Stop: 01/06/18 14:28 Last Admin: 01/06/18 14:33 Dose: 3 ml Albuterol/Ipratropium (Duoneb 3.0-0.5 Mg/3 Ml) Confirm Administered Dose 3 ml .ROUTE .STK-MED ONE Stop: 01/06/18 14:35 Last Admin: 01/06/18 14:33 Dose: Not Given Azithromycin (Zithromax) 250 mg PO DAILY [facility] Diphenhydramine HCl (Benadryl) 25 mg IVPUSH ONETIME ONE Stop: 01/07/18 21:12 Last Admin: 01/07/18 21:34 Dose: 25 mg Doxycycline Hyclate (Vibramycin) 100 mg PO BID [facility] Last Admin: 01/06/18 22:12 Dose: Not Given Sodium Chloride (Normal Saline) 1,000 mls @ 125 mls/hr IV ASDIRECTED [facility] Last Admin: 01/06/18 15:43 Dose: 125 mls/hr Ceftriaxone Sodium 2 gm/ (Sodium Chloride) 100 mls @ 100 mls/hr IV ONETIME ONE Stop: 01/06/18 17:11 Last Admin: 01/06/18 16:17 Dose: 100 mls/hr Sodium Chloride (Normal Saline) 1,000 mls @ 50 mls/hr IV ASDIRECTED [facility] Last Admin: 01/07/18 22:08 Dose: 50 mls/hr Ceftriaxone Sodium 1 gm/ (Dextrose/Water) 100 mls @ 200 mls/hr IV Q24H [facility] Stop: 01/09/18 16:00 Last Admin: 01/09/18 13:14 Dose: 200 mls/hr Doxycycline Hyclate 100 mg/ (Sodium Chloride) 100 mls @ 100 mls/hr IV Q12H [facility] Last Admin: 01/10/18 04:04 Dose: 100 mls/hr Magnesium Sulfate (Pharmacy To Dose - Magnesium Replacement) 1 dose .XX ASDIRECTED [facility] Methylprednisolone Sodium Succinate (Solu-Medrol) 40 mg IVPUSH ONETIME ONE Stop: 01/06/18 19:29 Last Admin: 01/06/18 21:30 Dose: 40 mg Mirtazapine (Remeron) 30 mg PO BEDTIME [facility] Last Admin: 01/06/18 22:12 Dose: Not Given Modafinil (Provigil) 100 mg PO ONETIME ONE Stop: 01/06/18 07:01 Last Admin: 01/06/18 19:58 Dose: Not Given Modafinil (Provigil) 100 mg PO ONETIME ONE Stop: 01/07/18 07:01 Last Admin: 01/07/18 06:51 Dose: 100 mg Potassium Chloride (Pharmacy To Dose - Potassium Replacement) 1 dose .XX ASDIRECTED [facility] Potassium Chloride (Klor-Con M20) 40 meq PO ONETIME ONE Stop: 01/08/18 12:01 Last Admin: 01/08/18 12:45 Dose: 40 meq Prednisone (Prednisone) 60 mg PO WITHBREAKFAST [facility] Last Admin: 01/08/18 09:31 Dose: 60 mg Prednisone (Prednisone) 30 mg PO WITHBREAKFAST [facility] Stop: 01/09/18 07:01 Last Admin: 01/09/18 06:07 Dose: 30 mg Trospium (Sanctura) 20 mg PO BIDAC [facility] Last Admin: 01/08/18 06:13 Dose: 20 mg - Exam Quality Assessment: Reports: Supplemental Oxygen, DVT Prophylaxis General: Reports: Alert, Oriented, Cooperative, No Acute Distress HEENT: Reports: Pupils Equal, Pupils Reactive, EOMI Neck: Reports: Trachea Midline, No JVD Lungs: Reports: Normal Respiratory Effort, Decreased Breath Sounds Cardiovascular: Reports: Regular Rate GI/Abdominal Exam: Normal Bowel Sounds, Soft, Non-Tender, No Organomegaly, No Distention (Female) Exam: Deferred Rectal (Female) Exam: Deferred Back Exam: Reports: Normal Inspection Extremities: Normal Inspection Skin: Reports: Warm Neurological: Reports: No New Focal Deficit Psy/Mental Status: Reports: Alert, Normal Affect, Normal Mood *Q Meaningful Use (DIS) - VTE *Q VTE Criteria *Q: - Stroke *Q Stroke Criteria *Q: - AMI *Q AMI Criteria *Q:
[2018-01-10 13:47] VITALS: BP 81/57
== END 2018-01-10 15:50 | disposition home or self-care (01) | DRG 917 ==
LOC: JD.ED 14:12 → JD.MS 17:36
PROVIDERS: ADMIT Internal Medicine; ATTEND Internal Medicine
DX: T50.901A Poisoning by unspecified drugs, medicaments and biological substances, accidental (unintentional), initial encounter (principal); G92 Toxic encephalopathy; J18.9 Pneumonia, unspecified organism; R40.0 Somnolence; R09.02 Hypoxemia; R62.7 Adult failure to thrive; R53.1 Weakness; I10 Essential (primary) hypertension; E78.5 Hyperlipidemia, unspecified; J44.9 Chronic obstructive pulmonary disease, unspecified; J84.10 Pulmonary fibrosis, unspecified; K21.9 Gastro-esophageal reflux disease without esophagitis; D64.9 Anemia, unspecified; I71.6 Thoracoabdominal aortic aneurysm, without rupture; Z86.73 Personal history of transient ischemic attack (TIA), and cerebral infarction without residual deficits; Z86.718 Personal history of other venous thrombosis and embolism; N32.81 Overactive bladder; G62.9 Polyneuropathy, unspecified; F17.200 Nicotine dependence, unspecified, uncomplicated; F32.9 Major depressive disorder, single episode, unspecified; G89.4 Chronic pain syndrome; M54.5 Low back pain; E55.9 Vitamin D deficiency, unspecified; R21 Rash and other nonspecific skin eruption; Z86.14 Personal history of Methicillin resistant Staphylococcus aureus infection; H54.7 Unspecified visual loss; Z88.0 Allergy status to penicillin; Z88.2 Allergy status to sulfonamides; Z79.02 Long term (current) use of antithrombotics/antiplatelets; Z79.899 Other long term (current) drug therapy
CPT/HCPCS: 36415; 36600; 70450; 71045; 80053; 80306; 81001; 82306; 82803; 84484; 85025; 86140; 87040 ×2; 93005; 94640; 96361; 96365; 96366; 99285; G0480; J0696; J7030; J7040; J7050; P9612; 80048; 82272; 82607; 82746; 83540; 83735; 84439; 84443; 84466; 87641; 93010; 94664; 94760; 94761; 97110-GO; 97110-GP; 97116-GP; 97162-GP; 97165-GO; 97530-GO; 97530-GP; 99223; 99232; 99238; A9270; A9270-GY; J1200; J2920; J7060

== ENCOUNTER 2022-02-24 21:37 | Inpatient (IN) | payer OTHER, MEDICAID ==
[2022-02-25] MEDS ORDERED: Levofloxacin/Dextrose 5%-Water 750 MG in Premix Bag 1 BAG IV ONE (00:52)
[2022-02-25] MEDS ORDERED: levETIRAcetam 500 MG in Sodium Chloride 0.9% 100 ML IV ONE (02:52)
[2022-02-25] MEDS ORDERED: Dextrose 5%-Lactated Ringers 1,000 ML IV SCH (03:00)
[2022-02-25] MEDS ORDERED: hydrALAZINE 20 MG/ML SDV IVPUSH PRN (04:49)
[2022-02-25] MEDS ORDERED: Acetaminophen 325 MG Tab PO PRN (04:49)
[2022-02-25] MEDS ORDERED: Thiamine 500 MG in Sodium Chloride 0.9% 100 ML IV SCH (06:00)
[2022-02-25] MEDS: Thiamine 500 MG in Sodium Chloride 0.9% 100 ML IV SCH (09:09)
[2022-02-25] MEDS ORDERED: Acetaminophen/HYDROcodone 325-10 MG Tab PO PRN (12:44)
[2022-02-25] MEDS ORDERED: Albuterol 6.7 GM Inhaler INH PRN (13:36)
[2022-02-25] MEDS ORDERED: Cyclobenzaprine 10 MG Tab PO PRN (13:58)
[2022-02-25] MEDS ORDERED: Acetaminophen/HYDROcodone 325-10 MG Tab PO SCH (15:00)
[2022-02-25] MEDS ORDERED: Non-Formulary Medication 1 Each (Gabapentin 800 MG Tablet) PO SCH (15:00)
[2022-02-25] MEDS: Dextrose 5%-Lactated Ringers 1,000 ML IV SCH (15:42)
[2022-02-25] MEDS: Gabapentin 600 MG Tab PO SCH ×2 (15:48→22:13)
[2022-02-25] MEDS: Gabapentin 100 MG Cap PO SCH ×2 (15:50→22:14)
[2022-02-25] MEDS: Baclofen 10 MG Tab PO SCH ×2 (17:38→22:17)
[2022-02-25] MEDS: MOXIFLOXACIN EYELF SCH ×2 (17:49→22:20)
[2022-02-25 20:11] LABS: C. TRACHOMATIS BY PCR NOT DETECTED; N. GONORRHOEAE BY PCR NOT DETECTED
[2022-02-25] MEDS: Formoterol/Mometasone 200-5 MCG 8.8 GM Inhaler IH SCH (20:43)
[2022-02-25] MEDS: Metoprolol Tartrate 25 MG Tab PO SCH (22:08)
[2022-02-25] MEDS: Rosuvastatin 10 MG Tab PO SCH (22:12)
[2022-02-25] MEDS: Acetaminophen/HYDROcodone 325-10 MG Tab PO SCH (22:15)
[2022-02-25] MEDS: Mirtazapine 15 MG Tab PO SCH (22:16)
[2022-02-25] MEDS: levETIRAcetam 500 MG Tab PO SCH (22:17)
[2022-02-25] MEDS: Potassium Chloride 20 MEQ Tab.ER PO SCH (22:17)
[2022-02-25] MEDS: Dexamethasone/Neomycin/Polymyxin B Ophth Oint 3.5 GM Tube EYELF SCH (22:19)
[2022-02-26] MEDS: Levofloxacin/Dextrose 5%-Water 750 MG in Premix Bag 1 BAG IV SCH ×2 (01:32→23:20)
[2022-02-26] MEDS: Dextrose 5%-Lactated Ringers 1,000 ML IV SCH (01:32)
[2022-02-26] MEDS: Enoxaparin 40 MG/0.4 ML Syringe SUBCUT SCH (06:00)
[2022-02-26] MEDS: Formoterol/Mometasone 200-5 MCG 8.8 GM Inhaler IH SCH ×2 (08:15→21:25)
[2022-02-26] MEDS ORDERED: Levofloxacin/Dextrose 5%-Water 500 MG in Premix Bag 1 BAG IV SCH (08:45)
[2022-02-26] MEDS: Thiamine 500 MG in Sodium Chloride 0.9% 100 ML IV SCH (09:00)
[2022-02-26] MEDS ORDERED: Rosuvastatin 10 MG Tab PO SCH (09:00)
[2022-02-26] MEDS: Gabapentin 600 MG Tab PO SCH ×3 (09:04→20:49)
[2022-02-26] MEDS: levETIRAcetam 500 MG Tab PO SCH ×2 (09:04→20:47)
[2022-02-26] MEDS: DULoxetine 30 MG Cap PO SCH (09:04)
[2022-02-26] MEDS: Clopidogrel 75 MG Tab PO SCH (09:05)
[2022-02-26] MEDS: Aspirin 81 MG Tab.EC PO SCH (09:05)
[2022-02-26] MEDS: Potassium Chloride 20 MEQ Tab.ER PO SCH ×2 (09:05→20:47)
[2022-02-26] MEDS: Baclofen 10 MG Tab PO SCH ×4 (09:05→20:48)
[2022-02-26] MEDS: Gabapentin 100 MG Cap PO SCH ×3 (09:05→20:47)
[2022-02-26] MEDS: Metoprolol Tartrate 25 MG Tab PO SCH ×2 (09:06→20:49)
[2022-02-26] MEDS: Pantoprazole 40 MG Tab.CR PO SCH (09:06)
[2022-02-26] MEDS: amLODIPine 5 MG Tab PO SCH (09:06)
[2022-02-26] MEDS: Acetaminophen/HYDROcodone 325-10 MG Tab PO SCH ×3 (09:07→20:47)
[2022-02-26] MEDS: Dexamethasone/Neomycin/Polymyxin B Ophth Oint 3.5 GM Tube EYELF SCH ×2 (09:15→20:45)
[2022-02-26] MEDS: MOXIFLOXACIN EYELF SCH ×4 (09:16→20:46)
[2022-02-26] MEDS ORDERED: Albuterol/Ipratropium 3.0-0.5 MG/3 ML Neb Soln NEB PRN (11:31)
[2022-02-26] MEDS ORDERED: Polyethylene Glycol 3350 Powder 17 GM Packet PO PRN (20:33)
[2022-02-26] MEDS ORDERED: Bisacodyl 10 MG Supp RECTAL PRN (20:34)
[2022-02-26] MEDS: Mirtazapine 15 MG Tab PO SCH (20:48)
[2022-02-26] MEDS: Rosuvastatin 10 MG Tab PO SCH (20:58)
[2022-02-27] MEDS: Enoxaparin 40 MG/0.4 ML Syringe SUBCUT SCH (06:11)
[2022-02-27] MEDS: Thiamine 100 MG Tab PO SCH (09:04)
[2022-02-27] MEDS: amLODIPine 5 MG Tab PO SCH (09:04)
[2022-02-27] MEDS: Acetaminophen/HYDROcodone 325-10 MG Tab PO SCH ×3 (09:04→21:55)
[2022-02-27] MEDS: Aspirin 81 MG Tab.EC PO SCH (09:04)
[2022-02-27] MEDS: Gabapentin 100 MG Cap PO SCH ×3 (09:05→21:53)
[2022-02-27] MEDS: Metoprolol Tartrate 25 MG Tab PO SCH ×2 (09:05→21:54)
[2022-02-27] MEDS: Gabapentin 600 MG Tab PO SCH ×3 (09:06→21:54)
[2022-02-27] MEDS: Clopidogrel 75 MG Tab PO SCH (09:06)
[2022-02-27] MEDS: Potassium Chloride 20 MEQ Tab.ER PO SCH ×2 (09:06→21:53)
[2022-02-27] MEDS: Baclofen 10 MG Tab PO SCH ×4 (09:06→21:54)
[2022-02-27] MEDS: Pantoprazole 40 MG Tab.CR PO SCH (09:06)
[2022-02-27] MEDS: levETIRAcetam 500 MG Tab PO SCH ×2 (09:06→21:52)
[2022-02-27] MEDS: DULoxetine 30 MG Cap PO SCH (09:07)
[2022-02-27] MEDS: Dexamethasone/Neomycin/Polymyxin B Ophth Oint 3.5 GM Tube EYELF SCH ×2 (09:36→22:04)
[2022-02-27] MEDS: MOXIFLOXACIN EYELF SCH ×4 (09:37→21:56)
[2022-02-27] MEDS: Formoterol/Mometasone 200-5 MCG 8.8 GM Inhaler IH SCH ×2 (11:08→20:04)
[2022-02-27] MEDS: Levofloxacin/Dextrose 5%-Water 750 MG in Premix Bag 1 BAG IV SCH (21:50)
[2022-02-27] MEDS: Mirtazapine 15 MG Tab PO SCH (21:53)
[2022-02-27] MEDS: Rosuvastatin 10 MG Tab PO SCH (21:54)
[2022-02-28] MEDS: Levofloxacin/Dextrose 5%-Water 750 MG in Premix Bag 1 BAG IV SCH (00:18)
[2022-02-28] MEDS: Enoxaparin 40 MG/0.4 ML Syringe SUBCUT SCH ×2 (04:53→07:40)
[2022-02-28] MEDS: Formoterol/Mometasone 200-5 MCG 8.8 GM Inhaler IH SCH ×2 (08:23→20:08)
[2022-02-28] MEDS: Aspirin 81 MG Tab.EC PO SCH (09:34)
[2022-02-28] MEDS: Pantoprazole 40 MG Tab.CR PO SCH (09:34)
[2022-02-28] MEDS: levETIRAcetam 500 MG Tab PO SCH ×2 (09:34→20:46)
[2022-02-28] MEDS: Acetaminophen/HYDROcodone 325-10 MG Tab PO SCH ×3 (09:34→20:49)
[2022-02-28] MEDS: Thiamine 100 MG Tab PO SCH (09:34)
[2022-02-28] MEDS: Baclofen 10 MG Tab PO SCH ×4 (09:34→20:46)
[2022-02-28] MEDS: Gabapentin 100 MG Cap PO SCH ×3 (09:34→20:45)
[2022-02-28] MEDS: Gabapentin 600 MG Tab PO SCH ×3 (09:35→20:46)
[2022-02-28] MEDS: Metoprolol Tartrate 25 MG Tab PO SCH ×2 (09:35→20:47)
[2022-02-28] MEDS: DULoxetine 30 MG Cap PO SCH (09:35)
[2022-02-28] MEDS: Potassium Chloride 20 MEQ Tab.ER PO SCH ×2 (09:35→20:44)
[2022-02-28] MEDS: Clopidogrel 75 MG Tab PO SCH (09:35)
[2022-02-28] MEDS: amLODIPine 5 MG Tab PO SCH (09:35)
[2022-02-28] MEDS: Dexamethasone/Neomycin/Polymyxin B Ophth Oint 3.5 GM Tube EYELF SCH ×2 (09:36→20:50)
[2022-02-28] MEDS: MOXIFLOXACIN EYELF SCH ×4 (09:36→20:51)
[2022-02-28] MEDS: Rosuvastatin 10 MG Tab PO SCH (20:44)
[2022-02-28] MEDS: Mirtazapine 15 MG Tab PO SCH (20:44)
[2022-02-28] MEDS ORDERED: Levofloxacin 500 MG Tab PO SCH (21:00)
[2022-03-01] MEDS: Enoxaparin 40 MG/0.4 ML Syringe SUBCUT SCH (06:39)
[2022-03-01] MEDS: Formoterol/Mometasone 200-5 MCG 8.8 GM Inhaler IH SCH (08:07)
[2022-03-01 08:13] VITALS: BP 138/63
[2022-03-01] MEDS: Dexamethasone/Neomycin/Polymyxin B Ophth Oint 3.5 GM Tube EYELF SCH (09:42)
[2022-03-01] MEDS: levETIRAcetam 500 MG Tab PO SCH (09:44)
[2022-03-01] MEDS: DULoxetine 30 MG Cap PO SCH (09:44)
[2022-03-01] MEDS: MOXIFLOXACIN EYELF SCH (09:44)
[2022-03-01] MEDS: Gabapentin 100 MG Cap PO SCH (09:45)
[2022-03-01] MEDS: Metoprolol Tartrate 25 MG Tab PO SCH (09:45)
[2022-03-01] MEDS: Thiamine 100 MG Tab PO SCH (09:45)
[2022-03-01] MEDS: Potassium Chloride 20 MEQ Tab.ER PO SCH (09:45)
[2022-03-01] MEDS: amLODIPine 5 MG Tab PO SCH (09:46)
[2022-03-01] MEDS: Acetaminophen/HYDROcodone 325-10 MG Tab PO SCH (09:46)
[2022-03-01] MEDS: Baclofen 10 MG Tab PO SCH (09:46)
[2022-03-01] MEDS: Clopidogrel 75 MG Tab PO SCH (09:47)
[2022-03-01] MEDS: Pantoprazole 40 MG Tab.CR PO SCH (09:47)
[2022-03-01] MEDS: Aspirin 81 MG Tab.EC PO SCH (09:47)
[2022-03-01] MEDS: Gabapentin 600 MG Tab PO SCH (09:47)
[2022-03-01 10:26] VITALS: PULSE 65
== END 2022-03-01 10:32 | disposition home or self-care (01) | DRG 698 ==
LOC: JD.ED 21:37 → EEVIPCON 02-25 00:55 → JD.MS 02-25 00:55
PROVIDERS: ADMIT Internal Medicine; ATTEND Internal Medicine
DX: T83.511A Infection and inflammatory reaction due to indwelling urethral catheter, initial encounter (principal); J18.9 Pneumonia, unspecified organism; S82.892K Other fracture of left lower leg, subsequent encounter for closed fracture with nonunion; J44.0 Chronic obstructive pulmonary disease with (acute) lower respiratory infection; L97.321 Non-pressure chronic ulcer of left ankle limited to breakdown of skin; N39.0 Urinary tract infection, site not specified; Z66 Do not resuscitate; Z20.822 Contact with and (suspected) exposure to COVID-19; R29.810 Facial weakness; N31.9 Neuromuscular dysfunction of bladder, unspecified; H54.40 Blindness, one eye, unspecified eye; B96.20 Unspecified Escherichia coli [E. coli] as the cause of diseases classified elsewhere; B95.62 Methicillin resistant Staphylococcus aureus infection as the cause of diseases classified elsewhere; E78.00 Pure hypercholesterolemia, unspecified; K21.9 Gastro-esophageal reflux disease without esophagitis; F17.210 Nicotine dependence, cigarettes, uncomplicated; E86.0 Dehydration; I71.2 Thoracic aortic aneurysm, without rupture; I71.4 Abdominal aortic aneurysm, without rupture; E78.5 Hyperlipidemia, unspecified; I10 Essential (primary) hypertension; F32.A Depression, unspecified; Z89.511 Acquired absence of right leg below knee; Z99.3 Dependence on wheelchair; Z88.0 Allergy status to penicillin; Z88.2 Allergy status to sulfonamides; Z79.82 Long term (current) use of aspirin; Z79.899 Other long term (current) drug therapy; Z86.718 Personal history of other venous thrombosis and embolism; Z79.01 Long term (current) use of anticoagulants; Z86.73 Personal history of transient ischemic attack (TIA), and cerebral infarction without residual deficits; Z90.710 Acquired absence of both cervix and uterus
CPT/HCPCS: 36415; 51702; 70450; 70450-26; 71045; 71045-26; 73610-26-LT; 73610-LT; 80053; 80306; 81001; 83605; 83735; 84443; 84484; 85025; 85027; 85610; 85730; 87040; 87086; 87088; 87186; 87491; 87591; 92523-GN; 92526-GN; 92610-GN; 93005; 93306; 94640; 94760; 94761; 96365; 97162-GP; 97530-GP; 97597-GP; 99285-25; A9270-GY; J1650; J1953; J1956; J3411; J7121; J7620-GY; U0002

== ENCOUNTER 2022-10-03 17:49 | Emergency (ER) | payer MEDICAID, OTHER ==
[2022-10-03 18:01] VITALS: BP 134/82; PULSE 57
== END 2022-10-03 19:30 | disposition home or self-care (01) ==
LOC: JD.ED 17:49
DX: S91.302A Unspecified open wound, left foot, initial encounter (principal); E78.00 Pure hypercholesterolemia, unspecified; I10 Essential (primary) hypertension; J44.9 Chronic obstructive pulmonary disease, unspecified; K21.9 Gastro-esophageal reflux disease without esophagitis; Z88.0 Allergy status to penicillin; Z88.2 Allergy status to sulfonamides; Z79.82 Long term (current) use of aspirin; Z79.02 Long term (current) use of antithrombotics/antiplatelets; Z79.899 Other long term (current) drug therapy; W26.8XXA Contact with other sharp object(s), not elsewhere classified, initial encounter; Y92.009 Unspecified place in unspecified non-institutional (private) residence as the place of occurrence of the external cause
CPT/HCPCS: 99283

== ENCOUNTER 2022-10-16 19:56 | Emergency (ER) | payer MEDICARE, MEDICAID ==
[2022-10-16 20:35] VITALS: BP 127/83; PULSE 87
== END 2022-10-16 20:45 ==
LOC: JD.ED 19:56
DX: S81.811A Laceration without foreign body, right lower leg, initial encounter (principal); E78.00 Pure hypercholesterolemia, unspecified; I10 Essential (primary) hypertension; K21.9 Gastro-esophageal reflux disease without esophagitis; J44.9 Chronic obstructive pulmonary disease, unspecified; Z88.0 Allergy status to penicillin; Z88.2 Allergy status to sulfonamides; Z79.82 Long term (current) use of aspirin; Z79.899 Other long term (current) drug therapy; Z86.73 Personal history of transient ischemic attack (TIA), and cerebral infarction without residual deficits; W26.8XXA Contact with other sharp object(s), not elsewhere classified, initial encounter
CPT/HCPCS: 99284

== ENCOUNTER 2022-10-24 14:34 | Emergency (ER) | payer MEDICARE, MEDICAID ==
[2022-10-24 15:05] VITALS: BP 143/88; PULSE 80
== END 2022-10-24 16:55 | disposition home or self-care (01) ==
LOC: JD.ED 14:34
DX: T83.021A Displacement of indwelling urethral catheter, initial encounter (principal); J44.9 Chronic obstructive pulmonary disease, unspecified; E78.00 Pure hypercholesterolemia, unspecified; I10 Essential (primary) hypertension; F17.210 Nicotine dependence, cigarettes, uncomplicated; Z88.0 Allergy status to penicillin; Z88.2 Allergy status to sulfonamides; Z79.899 Other long term (current) drug therapy; Z79.82 Long term (current) use of aspirin; Z90.710 Acquired absence of both cervix and uterus
CPT/HCPCS: 51702; 99284

== ENCOUNTER 2022-12-09 15:49 | Inpatient (IN) | payer MEDICARE, MEDICAID ==
[2022-12-09] MEDS ORDERED: Sodium Chloride 0.9% 1,000 ML IV ONE (15:52)
[2022-12-09] MEDS ORDERED: Sodium Chloride 0.9% 10 ML Syringe FLUSH PRN (15:52)
[2022-12-09] MEDS ORDERED: Iopamidol 612 MG/ML 100 ML Bottle IVPUSH ONE (16:14)
[2022-12-09] MEDS ORDERED: Sodium Chloride 0.9% 10 ML Syringe FLUSH ONE (16:14)
[2022-12-09] MEDS ORDERED: Iopamidol 612 MG/ML 50 ML SDV IVPUSH ONE (16:14)
[2022-12-09 17:40] LABS: CORONAVIRUS COVID-19 NAA NEGATIVE (NEGATIVE)
[2022-12-09] MEDS ORDERED: cefTRIAXone 2 GM in Sodium Chloride 0.9% 100 ML IV ONE (17:52)
[2022-12-09] MEDS ORDERED: cefTRIAXone 2 GM in Sodium Chloride 0.9% 100 ML IV SCH (18:30)
[2022-12-09] MEDS: Heparin Sodium 5,000 Units/ML Vial SUBCUT SCH (20:21)
[2022-12-09] MEDS ORDERED: Acetaminophen/HYDROcodone 325-10 MG Tab PO SCH (22:56)
[2022-12-09] MEDS ORDERED: Albuterol 6.7 GM Inhaler INH PRN (22:56)
[2022-12-09] MEDS ORDERED: Levofloxacin 500 MG Tab PO SCH (23:00)
[2022-12-09] MEDS ORDERED: Metoprolol Tartrate 25 MG Tab PO SCH (23:00)
[2022-12-09] MEDS ORDERED: levETIRAcetam 500 MG Tab PO SCH (23:15)
[2022-12-10] MEDS: Cyclobenzaprine 10 MG Tab PO PRN (00:24)
[2022-12-10] MEDS: Heparin Sodium 5,000 Units/ML Vial SUBCUT SCH ×3 (02:22→18:51)
[2022-12-10] MEDS ORDERED: Morphine 2 MG/ML SYRINGE IVPUSH ONE (04:54)
[2022-12-10] MEDS ORDERED: Non-Formulary Medication 1 Each (Albuterol 18 GM Inhaler) INH PRN (07:36)
[2022-12-10] MEDS ORDERED: Potassium Chloride 20 MEQ Tab.ER PO SCH (09:00)
[2022-12-10] MEDS ORDERED: DULoxetine 30 MG Cap PO SCH (09:00)
[2022-12-10] MEDS ORDERED: Baclofen 10 MG Tab PO SCH (09:00)
[2022-12-10] MEDS ORDERED: Clopidogrel 75 MG Tab PO SCH (09:00)
[2022-12-10] MEDS ORDERED: Gabapentin 600 MG Tab PO SCH (09:00)
[2022-12-10] MEDS ORDERED: Aspirin 81 MG Tab.Chew PO SCH (09:00)
[2022-12-10] MEDS ORDERED: Rosuvastatin 10 MG Tab PO SCH (09:00)
[2022-12-10] MEDS ORDERED: amLODIPine 5 MG Tab PO SCH (09:00)
[2022-12-10] MEDS ORDERED: Gabapentin 100 MG Cap PO SCH (09:00)
[2022-12-10] MEDS: Baclofen 10 MG Tab PO SCH ×4 (09:06→20:02)
[2022-12-10] MEDS: levETIRAcetam 500 MG Tab PO SCH ×2 (09:09→20:02)
[2022-12-10] MEDS: Gabapentin 100 MG Cap PO SCH ×3 (09:09→20:01)
[2022-12-10] MEDS: Metoprolol Tartrate 25 MG Tab PO SCH ×2 (09:10→20:01)
[2022-12-10] MEDS: Aspirin 81 MG Tab.EC PO SCH (09:11)
[2022-12-10] MEDS: DULoxetine 30 MG Cap PO SCH (09:11)
[2022-12-10] MEDS: Clopidogrel 75 MG Tab PO SCH (09:11)
[2022-12-10] MEDS: Potassium Chloride 20 MEQ Tab.ER PO SCH ×2 (09:12→20:02)
[2022-12-10] MEDS: Pantoprazole 40 MG Tab.CR PO SCH (09:12)
[2022-12-10] MEDS: Acetaminophen/HYDROcodone 325-10 MG Tab PO SCH ×3 (09:12→20:01)
[2022-12-10] MEDS: Rosuvastatin 10 MG Tab PO SCH (09:12)
[2022-12-10] MEDS: Gabapentin 600 MG Tab PO SCH ×3 (09:21→20:01)
[2022-12-10] MEDS: amLODIPine 5 MG Tab PO SCH (09:26)
[2022-12-10] MEDS ORDERED: cefTRIAXone 2 GM in Sodium Chloride 0.9% 100 ML IV SCH (18:00)
[2022-12-10] MEDS: Mirtazapine 15 MG Tab PO SCH (20:02)
[2022-12-10] MEDS ORDERED: Mirtazapine 15 MG Tab PO SCH (21:00)
[2022-12-11] MEDS: Heparin Sodium 5,000 Units/ML Vial SUBCUT SCH ×3 (01:30→18:16)
[2022-12-11] MEDS: Pantoprazole 40 MG Tab.CR PO SCH (08:48)
[2022-12-11] MEDS: DULoxetine 30 MG Cap PO SCH (08:48)
[2022-12-11] MEDS: Acetaminophen/HYDROcodone 325-10 MG Tab PO SCH ×3 (08:48→20:10)
[2022-12-11] MEDS: Rosuvastatin 10 MG Tab PO SCH (08:48)
[2022-12-11] MEDS: Aspirin 81 MG Tab.EC PO SCH (08:49)
[2022-12-11] MEDS: Gabapentin 600 MG Tab PO SCH ×3 (08:50→20:11)
[2022-12-11] MEDS: Gabapentin 100 MG Cap PO SCH ×3 (08:50→20:11)
[2022-12-11] MEDS: amLODIPine 5 MG Tab PO SCH (08:51)
[2022-12-11] MEDS: Potassium Chloride 20 MEQ Tab.ER PO SCH ×2 (08:51→20:11)
[2022-12-11] MEDS: Metoprolol Tartrate 25 MG Tab PO SCH ×2 (08:52→20:11)
[2022-12-11] MEDS: Baclofen 10 MG Tab PO SCH ×4 (08:52→20:10)
[2022-12-11] MEDS: Clopidogrel 75 MG Tab PO SCH (08:52)
[2022-12-11] MEDS: levETIRAcetam 500 MG Tab PO SCH ×2 (08:52→20:10)
[2022-12-11] MEDS: Formoterol/Mometasone 200-5 MCG 8.8 GM Inhaler IH SCH ×2 (12:26→20:44)
[2022-12-11] MEDS: Albuterol/Ipratropium 3.0-0.5 MG/3 ML Neb Soln NEB PRN ×2 (12:26→18:29)
[2022-12-11] MEDS ORDERED: VANCOmycin 1.25 GM/250 ML 250 ML IV ONE (16:00)
[2022-12-11] MEDS: Mirtazapine 15 MG Tab PO SCH (20:10)
[2022-12-12] MEDS: Heparin Sodium 5,000 Units/ML Vial SUBCUT SCH ×3 (01:40→17:56)
[2022-12-12] MEDS: Formoterol/Mometasone 200-5 MCG 8.8 GM Inhaler IH SCH ×2 (08:14→21:05)
[2022-12-12] MEDS: Gabapentin 100 MG Cap PO SCH ×3 (08:24→20:04)
[2022-12-12] MEDS: DULoxetine 30 MG Cap PO SCH (08:24)
[2022-12-12] MEDS: levETIRAcetam 500 MG Tab PO SCH ×2 (08:24→20:04)
[2022-12-12] MEDS: Pantoprazole 40 MG Tab.CR PO SCH (08:24)
[2022-12-12] MEDS: Acetaminophen/HYDROcodone 325-10 MG Tab PO SCH ×3 (08:25→21:29)
[2022-12-12] MEDS: Potassium Chloride 20 MEQ Tab.ER PO SCH ×2 (08:25→20:05)
[2022-12-12] MEDS: Metoprolol Tartrate 25 MG Tab PO SCH ×2 (08:26→20:05)
[2022-12-12] MEDS: Baclofen 10 MG Tab PO SCH ×4 (08:26→20:04)
[2022-12-12] MEDS: Aspirin 81 MG Tab.EC PO SCH (08:26)
[2022-12-12] MEDS: Clopidogrel 75 MG Tab PO SCH (08:26)
[2022-12-12] MEDS: Rosuvastatin 10 MG Tab PO SCH (08:26)
[2022-12-12] MEDS: Gabapentin 600 MG Tab PO SCH ×3 (08:27→20:04)
[2022-12-12] MEDS: amLODIPine 5 MG Tab PO SCH (08:27)
[2022-12-12] MEDS: Acetaminophen 325 MG Tab PO PRN (14:53)
[2022-12-12] MEDS: VANCOmycin 1.25 GM/250 ML 1.25 GM in Premix Bag 1 BAG IV SCH (16:43)
[2022-12-12] MEDS: Mirtazapine 15 MG Tab PO SCH (20:04)
[2022-12-13] MEDS: Heparin Sodium 5,000 Units/ML Vial SUBCUT SCH ×3 (02:41→17:41)
[2022-12-13] MEDS: Formoterol/Mometasone 200-5 MCG 8.8 GM Inhaler IH SCH ×2 (08:21→20:19)
[2022-12-13] MEDS: amLODIPine 5 MG Tab PO SCH (09:04)
[2022-12-13] MEDS: DULoxetine 30 MG Cap PO SCH (09:04)
[2022-12-13] MEDS: Baclofen 10 MG Tab PO SCH ×4 (09:04→21:03)
[2022-12-13] MEDS: Aspirin 81 MG Tab.EC PO SCH (09:04)
[2022-12-13] MEDS: Pantoprazole 40 MG Tab.CR PO SCH (09:04)
[2022-12-13] MEDS: levETIRAcetam 500 MG Tab PO SCH ×2 (09:04→21:00)
[2022-12-13] MEDS: Rosuvastatin 10 MG Tab PO SCH (09:04)
[2022-12-13] MEDS: Clopidogrel 75 MG Tab PO SCH (09:04)
[2022-12-13] MEDS: Potassium Chloride 20 MEQ Tab.ER PO SCH ×2 (09:06→21:03)
[2022-12-13] MEDS: Acetaminophen/HYDROcodone 325-10 MG Tab PO SCH ×3 (09:06→21:03)
[2022-12-13] MEDS: Gabapentin 600 MG Tab PO SCH ×3 (09:06→21:03)
[2022-12-13] MEDS: Gabapentin 100 MG Cap PO SCH ×3 (09:06→21:03)
[2022-12-13] MEDS: Metoprolol Tartrate 25 MG Tab PO SCH ×2 (09:09→21:01)
[2022-12-13] MEDS: VANCOmycin 1.25 GM/250 ML 1.25 GM in Premix Bag 1 BAG IV SCH (16:15)
[2022-12-13] MEDS: Mirtazapine 15 MG Tab PO SCH (21:04)
[2022-12-14] MEDS: Cyclobenzaprine 10 MG Tab PO PRN ×2 (02:04→20:12)
[2022-12-14] MEDS: Heparin Sodium 5,000 Units/ML Vial SUBCUT SCH ×3 (02:04→18:18)
[2022-12-14] MEDS: Formoterol/Mometasone 200-5 MCG 8.8 GM Inhaler IH SCH ×2 (08:34→20:18)
[2022-12-14] MEDS: Potassium Chloride 20 MEQ Tab.ER PO SCH ×2 (09:00→20:03)
[2022-12-14] MEDS: levETIRAcetam 500 MG Tab PO SCH ×2 (10:18→20:05)
[2022-12-14] MEDS: DULoxetine 30 MG Cap PO SCH (10:19)
[2022-12-14] MEDS: Aspirin 81 MG Tab.EC PO SCH (10:19)
[2022-12-14] MEDS: Gabapentin 100 MG Cap PO SCH ×3 (10:19→20:05)
[2022-12-14] MEDS: Gabapentin 600 MG Tab PO SCH ×3 (10:19→20:05)
[2022-12-14] MEDS: Baclofen 10 MG Tab PO SCH ×4 (10:20→20:05)
[2022-12-14] MEDS: Rosuvastatin 10 MG Tab PO SCH (10:20)
[2022-12-14] MEDS: Pantoprazole 40 MG Tab.CR PO SCH (10:20)
[2022-12-14] MEDS: Acetaminophen/HYDROcodone 325-10 MG Tab PO SCH ×3 (10:20→20:04)
[2022-12-14] MEDS: Clopidogrel 75 MG Tab PO SCH (10:20)
[2022-12-14] MEDS: amLODIPine 5 MG Tab PO SCH (10:20)
[2022-12-14] MEDS: Metoprolol Tartrate 25 MG Tab PO SCH ×2 (10:21→20:06)
[2022-12-14] MEDS: VANCOmycin 1.25 GM/250 ML 1.25 GM in Premix Bag 1 BAG IV SCH (16:09)
[2022-12-14] MEDS: Mirtazapine 15 MG Tab PO SCH (20:05)
[2022-12-15] MEDS: Heparin Sodium 5,000 Units/ML Vial SUBCUT SCH ×3 (03:24→18:21)
[2022-12-15] MEDS: Metoprolol Tartrate 25 MG Tab PO SCH ×2 (08:33→20:48)
[2022-12-15] MEDS: Aspirin 81 MG Tab.EC PO SCH (08:33)
[2022-12-15] MEDS: levETIRAcetam 500 MG Tab PO SCH ×2 (08:33→20:49)
[2022-12-15] MEDS: Potassium Chloride 20 MEQ Tab.ER PO SCH ×2 (08:34→20:49)
[2022-12-15] MEDS: amLODIPine 5 MG Tab PO SCH (08:34)
[2022-12-15] MEDS: Pantoprazole 40 MG Tab.CR PO SCH (08:34)
[2022-12-15] MEDS: Baclofen 10 MG Tab PO SCH ×4 (08:35→20:48)
[2022-12-15] MEDS: Acetaminophen/HYDROcodone 325-10 MG Tab PO SCH ×3 (08:35→20:50)
[2022-12-15] MEDS: Gabapentin 600 MG Tab PO SCH ×3 (08:35→20:48)
[2022-12-15] MEDS: DULoxetine 30 MG Cap PO SCH (08:35)
[2022-12-15] MEDS: Gabapentin 100 MG Cap PO SCH ×3 (08:35→20:49)
[2022-12-15] MEDS: Clopidogrel 75 MG Tab PO SCH (08:35)
[2022-12-15] MEDS: Rosuvastatin 10 MG Tab PO SCH (08:36)
[2022-12-15] MEDS: Formoterol/Mometasone 200-5 MCG 8.8 GM Inhaler IH SCH ×2 (09:20→20:04)
[2022-12-15] MEDS: VANCOmycin 1.25 GM/250 ML 1.25 GM in Premix Bag 1 BAG IV SCH (15:39)
[2022-12-15] MEDS: Mirtazapine 15 MG Tab PO SCH (20:49)
[2022-12-16] MEDS: Heparin Sodium 5,000 Units/ML Vial SUBCUT SCH ×3 (03:38→17:30)
[2022-12-16] MEDS: Rosuvastatin 10 MG Tab PO SCH (08:08)
[2022-12-16] MEDS: Pantoprazole 40 MG Tab.CR PO SCH (08:08)
[2022-12-16] MEDS: DULoxetine 30 MG Cap PO SCH (08:08)
[2022-12-16] MEDS: Potassium Chloride 20 MEQ Tab.ER PO SCH ×2 (08:08→20:31)
[2022-12-16] MEDS: Clopidogrel 75 MG Tab PO SCH (08:08)
[2022-12-16] MEDS: Gabapentin 100 MG Cap PO SCH ×3 (08:09→20:32)
[2022-12-16] MEDS: Acetaminophen/HYDROcodone 325-10 MG Tab PO SCH ×3 (08:09→20:31)
[2022-12-16] MEDS: Gabapentin 600 MG Tab PO SCH ×3 (08:09→20:27)
[2022-12-16] MEDS: Baclofen 10 MG Tab PO SCH ×4 (08:09→20:32)
[2022-12-16] MEDS: Aspirin 81 MG Tab.EC PO SCH (08:09)
[2022-12-16] MEDS: levETIRAcetam 500 MG Tab PO SCH ×2 (08:11→20:27)
[2022-12-16] MEDS ORDERED: Magnesium Sulfate/Water 2 GM in Premix Bag 1 BAG IV ONE (08:25)
[2022-12-16] MEDS: Metoprolol Tartrate 25 MG Tab PO SCH ×2 (09:11→20:28)
[2022-12-16] MEDS: amLODIPine 5 MG Tab PO SCH (09:12)
[2022-12-16] MEDS: Formoterol/Mometasone 200-5 MCG 8.8 GM Inhaler IH SCH ×2 (10:34→20:04)
[2022-12-16] MEDS: Acetaminophen 325 MG Tab PO PRN (12:29)
[2022-12-16] MEDS: VANCOmycin 1.25 GM/250 ML 1.25 GM in Premix Bag 1 BAG IV SCH (15:25)
[2022-12-16] MEDS: Mirtazapine 15 MG Tab PO SCH (20:32)
[2022-12-17] MEDS: Heparin Sodium 5,000 Units/ML Vial SUBCUT SCH ×4 (02:06→18:00)
[2022-12-17] MEDS ORDERED: Magnesium Hydroxide 400 MG/5 ML Susp 30 ML Cup PO ONE (02:28)
[2022-12-17] MEDS: Baclofen 10 MG Tab PO SCH ×4 (09:20→20:11)
[2022-12-17] MEDS: Potassium Chloride 20 MEQ Tab.ER PO SCH ×2 (09:20→20:10)
[2022-12-17] MEDS: Rosuvastatin 10 MG Tab PO SCH (09:20)
[2022-12-17] MEDS: amLODIPine 5 MG Tab PO SCH (09:21)
[2022-12-17] MEDS: Clopidogrel 75 MG Tab PO SCH (09:21)
[2022-12-17] MEDS: Aspirin 81 MG Tab.EC PO SCH (09:21)
[2022-12-17] MEDS: Pantoprazole 40 MG Tab.CR PO SCH (09:23)
[2022-12-17] MEDS: Gabapentin 100 MG Cap PO SCH ×3 (09:24→20:11)
[2022-12-17] MEDS: Gabapentin 600 MG Tab PO SCH ×3 (09:24→20:11)
[2022-12-17] MEDS: levETIRAcetam 500 MG Tab PO SCH ×2 (09:25→20:11)
[2022-12-17] MEDS: DULoxetine 30 MG Cap PO SCH (09:25)
[2022-12-17] MEDS: Metoprolol Tartrate 25 MG Tab PO SCH ×2 (09:27→20:12)
[2022-12-17] MEDS: Acetaminophen/HYDROcodone 325-10 MG Tab PO SCH ×3 (09:28→20:18)
[2022-12-17] MEDS: Formoterol/Mometasone 200-5 MCG 8.8 GM Inhaler IH SCH ×2 (09:33→20:18)
[2022-12-17] MEDS: VANCOmycin 1.25 GM/250 ML 1.25 GM in Premix Bag 1 BAG IV SCH (16:01)
[2022-12-17] MEDS: Mirtazapine 15 MG Tab PO SCH (20:12)
[2022-12-18] MEDS: Heparin Sodium 5,000 Units/ML Vial SUBCUT SCH ×3 (03:01→18:08)
[2022-12-18] MEDS: Potassium Chloride 20 MEQ Tab.ER PO SCH ×2 (09:05→20:24)
[2022-12-18] MEDS: Rosuvastatin 10 MG Tab PO SCH (09:05)
[2022-12-18] MEDS: Acetaminophen/HYDROcodone 325-10 MG Tab PO SCH ×3 (09:06→20:22)
[2022-12-18] MEDS: Clopidogrel 75 MG Tab PO SCH (09:06)
[2022-12-18] MEDS: DULoxetine 30 MG Cap PO SCH (09:06)
[2022-12-18] MEDS: Pantoprazole 40 MG Tab.CR PO SCH (09:06)
[2022-12-18] MEDS: Gabapentin 600 MG Tab PO SCH ×3 (09:06→20:24)
[2022-12-18] MEDS: levETIRAcetam 500 MG Tab PO SCH ×2 (09:06→20:24)
[2022-12-18] MEDS: Baclofen 10 MG Tab PO SCH ×4 (09:06→20:23)
[2022-12-18] MEDS: Gabapentin 100 MG Cap PO SCH ×3 (09:06→20:25)
[2022-12-18] MEDS: amLODIPine 5 MG Tab PO SCH (09:07)
[2022-12-18] MEDS: Metoprolol Tartrate 25 MG Tab PO SCH ×2 (09:07→20:23)
[2022-12-18] MEDS: Aspirin 81 MG Tab.EC PO SCH (09:08)
[2022-12-18] MEDS: Formoterol/Mometasone 200-5 MCG 8.8 GM Inhaler IH SCH ×2 (09:26→20:32)
[2022-12-18] MEDS ORDERED: Sodium Chloride 0.9% 10 ML Syringe FLUSH PRN (09:36)
[2022-12-18] MEDS ORDERED: Iopamidol 612 MG/ML 100 ML Bottle IVPUSH ONE (09:36)
[2022-12-18] MEDS ORDERED: VANCOmycin 1.5 GM/300 ML 1.5 GM in Premix Bag 1 BAG IV SCH (16:00)
[2022-12-18] MEDS: Clindamycin Phosphate in D5W 900 MG in Premix Bag 1 BAG IV SCH ×4 (16:53→23:54)
[2022-12-18] MEDS: Mirtazapine 15 MG Tab PO SCH (20:25)
[2022-12-19] MEDS: Heparin Sodium 5,000 Units/ML Vial SUBCUT SCH ×3 (03:28→19:13)
[2022-12-19] MEDS: Clindamycin Phosphate in D5W 900 MG in Premix Bag 1 BAG IV SCH ×6 (06:04→22:55)
[2022-12-19] MEDS: Formoterol/Mometasone 200-5 MCG 8.8 GM Inhaler IH SCH ×2 (08:36→21:20)
[2022-12-19] MEDS: Baclofen 10 MG Tab PO SCH ×4 (09:34→20:58)
[2022-12-19] MEDS: Rosuvastatin 10 MG Tab PO SCH (09:34)
[2022-12-19] MEDS: Gabapentin 100 MG Cap PO SCH ×3 (09:34→20:50)
[2022-12-19] MEDS: Aspirin 81 MG Tab.EC PO SCH (09:34)
[2022-12-19] MEDS: levETIRAcetam 500 MG Tab PO SCH ×2 (09:34→20:50)
[2022-12-19] MEDS: Gabapentin 600 MG Tab PO SCH ×3 (09:34→20:51)
[2022-12-19] MEDS: DULoxetine 30 MG Cap PO SCH (09:34)
[2022-12-19] MEDS: amLODIPine 5 MG Tab PO SCH (09:35)
[2022-12-19] MEDS: Acetaminophen/HYDROcodone 325-10 MG Tab PO SCH ×3 (09:35→20:51)
[2022-12-19] MEDS: Clopidogrel 75 MG Tab PO SCH (09:36)
[2022-12-19] MEDS: Potassium Chloride 20 MEQ Tab.ER PO SCH ×2 (09:36→20:52)
[2022-12-19] MEDS: Pantoprazole 40 MG Tab.CR PO SCH (09:36)
[2022-12-19] MEDS: Metoprolol Tartrate 25 MG Tab PO SCH ×2 (09:38→20:52)
[2022-12-19] MEDS: VANCOmycin 500 MG/100 ML 500 MG in Premix Bag 1 BAG IV SCH (15:46)
[2022-12-19] MEDS: Mirtazapine 15 MG Tab PO SCH (20:52)
[2022-12-20] MEDS: Heparin Sodium 5,000 Units/ML Vial SUBCUT SCH ×3 (04:30→17:45)
[2022-12-20] MEDS: VANCOmycin 500 MG/100 ML 500 MG in Premix Bag 1 BAG IV SCH ×2 (04:30→15:17)
[2022-12-20] MEDS: Clindamycin Phosphate in D5W 900 MG in Premix Bag 1 BAG IV SCH ×6 (06:26→23:30)
[2022-12-20] MEDS: DULoxetine 30 MG Cap PO SCH (09:19)
[2022-12-20] MEDS: Formoterol/Mometasone 200-5 MCG 8.8 GM Inhaler IH SCH ×2 (09:20→20:33)
[2022-12-20] MEDS: Gabapentin 100 MG Cap PO SCH ×3 (09:31→20:43)
[2022-12-20] MEDS: Rosuvastatin 10 MG Tab PO SCH (09:32)
[2022-12-20] MEDS: Acetaminophen/HYDROcodone 325-10 MG Tab PO SCH ×3 (09:32→20:39)
[2022-12-20] MEDS: Pantoprazole 40 MG Tab.CR PO SCH (09:32)
[2022-12-20] MEDS: levETIRAcetam 500 MG Tab PO SCH ×2 (09:32→20:42)
[2022-12-20] MEDS: Clopidogrel 75 MG Tab PO SCH (09:32)
[2022-12-20] MEDS: Aspirin 81 MG Tab.EC PO SCH (09:33)
[2022-12-20] MEDS: Baclofen 10 MG Tab PO SCH ×4 (09:33→20:42)
[2022-12-20] MEDS: Gabapentin 600 MG Tab PO SCH ×3 (09:33→20:44)
[2022-12-20] MEDS: Potassium Chloride 20 MEQ Tab.ER PO SCH ×2 (09:33→20:41)
[2022-12-20] MEDS: Metoprolol Tartrate 25 MG Tab PO SCH ×2 (09:33→20:43)
[2022-12-20] MEDS: amLODIPine 5 MG Tab PO SCH (09:36)
[2022-12-20] MEDS: Mirtazapine 15 MG Tab PO SCH (20:44)
[2022-12-21] MEDS: Heparin Sodium 5,000 Units/ML Vial SUBCUT SCH ×3 (01:30→18:38)
[2022-12-21] MEDS: VANCOmycin 500 MG/100 ML 500 MG in Premix Bag 1 BAG IV SCH ×2 (05:12→15:00)
[2022-12-21] MEDS: Clindamycin Phosphate in D5W 900 MG in Premix Bag 1 BAG IV SCH ×6 (06:23→22:39)
[2022-12-21] MEDS: Formoterol/Mometasone 200-5 MCG 8.8 GM Inhaler IH SCH ×2 (08:35→20:13)
[2022-12-21] MEDS: Potassium Chloride 20 MEQ Tab.ER PO SCH ×2 (09:19→20:44)
[2022-12-21] MEDS: DULoxetine 30 MG Cap PO SCH (09:19)
[2022-12-21] MEDS: Gabapentin 100 MG Cap PO SCH ×3 (09:20→20:46)
[2022-12-21] MEDS: Clopidogrel 75 MG Tab PO SCH (09:21)
[2022-12-21] MEDS: Acetaminophen/HYDROcodone 325-10 MG Tab PO SCH ×3 (09:21→20:46)
[2022-12-21] MEDS: Rosuvastatin 10 MG Tab PO SCH (09:21)
[2022-12-21] MEDS: Aspirin 81 MG Tab.EC PO SCH (09:22)
[2022-12-21] MEDS: Pantoprazole 40 MG Tab.CR PO SCH (09:23)
[2022-12-21] MEDS: levETIRAcetam 500 MG Tab PO SCH ×2 (09:23→20:44)
[2022-12-21] MEDS: Gabapentin 600 MG Tab PO SCH ×3 (09:23→20:45)
[2022-12-21] MEDS: Baclofen 10 MG Tab PO SCH ×4 (09:24→20:44)
[2022-12-21] MEDS: amLODIPine 5 MG Tab PO SCH (09:32)
[2022-12-21] MEDS: Metoprolol Tartrate 25 MG Tab PO SCH ×2 (09:33→20:45)
[2022-12-21] MEDS: Mirtazapine 15 MG Tab PO SCH (20:47)
[2022-12-21] MEDS: Cyclobenzaprine 10 MG Tab PO PRN (22:36)
[2022-12-22] MEDS: Heparin Sodium 5,000 Units/ML Vial SUBCUT SCH ×3 (01:45→17:55)
[2022-12-22] MEDS: VANCOmycin 500 MG/100 ML 500 MG in Premix Bag 1 BAG IV SCH ×2 (05:13→15:47)
[2022-12-22] MEDS: Clindamycin Phosphate in D5W 900 MG in Premix Bag 1 BAG IV SCH ×4 (06:20→14:06)
[2022-12-22] MEDS: DULoxetine 30 MG Cap PO SCH (08:09)
[2022-12-22] MEDS: Potassium Chloride 20 MEQ Tab.ER PO SCH ×2 (08:10→21:03)
[2022-12-22] MEDS: levETIRAcetam 500 MG Tab PO SCH ×2 (08:10→21:03)
[2022-12-22] MEDS: Clopidogrel 75 MG Tab PO SCH (08:11)
[2022-12-22] MEDS: Gabapentin 100 MG Cap PO SCH ×3 (08:11→21:05)
[2022-12-22] MEDS: Acetaminophen/HYDROcodone 325-10 MG Tab PO SCH ×3 (08:12→21:05)
[2022-12-22] MEDS: Pantoprazole 40 MG Tab.CR PO SCH (08:12)
[2022-12-22] MEDS: Gabapentin 600 MG Tab PO SCH ×3 (08:12→21:05)
[2022-12-22] MEDS: Aspirin 81 MG Tab.EC PO SCH (08:13)
[2022-12-22] MEDS: Rosuvastatin 10 MG Tab PO SCH (08:13)
[2022-12-22] MEDS: Baclofen 10 MG Tab PO SCH ×4 (08:13→21:04)
[2022-12-22] MEDS: amLODIPine 5 MG Tab PO SCH (08:15)
[2022-12-22] MEDS: Metoprolol Tartrate 25 MG Tab PO SCH ×2 (08:17→21:04)
[2022-12-22] MEDS: Formoterol/Mometasone 200-5 MCG 8.8 GM Inhaler IH SCH ×2 (08:21→20:20)
[2022-12-22] MEDS: Mirtazapine 15 MG Tab PO SCH (21:02)
[2022-12-23] MEDS: Clindamycin Phosphate in D5W 900 MG in Premix Bag 1 BAG IV SCH ×8 (01:11→23:22)
[2022-12-23] MEDS: Heparin Sodium 5,000 Units/ML Vial SUBCUT SCH ×4 (01:11→18:35)
[2022-12-23] MEDS: VANCOmycin 500 MG/100 ML 500 MG in Premix Bag 1 BAG IV SCH ×2 (04:45→17:22)
[2022-12-23] MEDS: Potassium Chloride 20 MEQ Tab.ER PO SCH ×2 (07:58→20:23)
[2022-12-23] MEDS: Gabapentin 600 MG Tab PO SCH ×3 (08:00→20:26)
[2022-12-23] MEDS: levETIRAcetam 500 MG Tab PO SCH ×2 (08:00→20:24)
[2022-12-23] MEDS: DULoxetine 30 MG Cap PO SCH (08:01)
[2022-12-23] MEDS: Clopidogrel 75 MG Tab PO SCH (08:01)
[2022-12-23] MEDS: Rosuvastatin 10 MG Tab PO SCH (08:02)
[2022-12-23] MEDS: Pantoprazole 40 MG Tab.CR PO SCH (08:02)
[2022-12-23] MEDS: Metoprolol Tartrate 25 MG Tab PO SCH ×2 (08:02→20:24)
[2022-12-23] MEDS: amLODIPine 5 MG Tab PO SCH (08:03)
[2022-12-23] MEDS: Baclofen 10 MG Tab PO SCH ×4 (08:03→20:24)
[2022-12-23] MEDS: Acetaminophen/HYDROcodone 325-10 MG Tab PO SCH ×3 (08:03→20:25)
[2022-12-23] MEDS: Gabapentin 100 MG Cap PO SCH ×3 (08:05→20:26)
[2022-12-23] MEDS: Aspirin 81 MG Tab.EC PO SCH (08:05)
[2022-12-23] MEDS: Formoterol/Mometasone 200-5 MCG 8.8 GM Inhaler IH SCH ×2 (08:17→21:27)
[2022-12-23] MEDS: Mirtazapine 15 MG Tab PO SCH (20:25)
[2022-12-24] MEDS: Heparin Sodium 5,000 Units/ML Vial SUBCUT SCH ×3 (02:04→18:20)
[2022-12-24] MEDS: VANCOmycin 500 MG/100 ML 500 MG in Premix Bag 1 BAG IV SCH ×2 (04:07→15:14)
[2022-12-24] MEDS: Clindamycin Phosphate in D5W 900 MG in Premix Bag 1 BAG IV SCH ×6 (06:37→23:11)
[2022-12-24] MEDS: Potassium Chloride 20 MEQ Tab.ER PO SCH ×2 (08:00→20:20)
[2022-12-24] MEDS: Formoterol/Mometasone 200-5 MCG 8.8 GM Inhaler IH SCH ×2 (09:17→20:09)
[2022-12-24] MEDS: Aspirin 81 MG Tab.EC PO SCH (09:35)
[2022-12-24] MEDS: Rosuvastatin 10 MG Tab PO SCH (09:35)
[2022-12-24] MEDS: Baclofen 10 MG Tab PO SCH ×4 (09:35→20:20)
[2022-12-24] MEDS: levETIRAcetam 500 MG Tab PO SCH ×2 (09:35→20:18)
[2022-12-24] MEDS: DULoxetine 30 MG Cap PO SCH (09:35)
[2022-12-24] MEDS: Gabapentin 100 MG Cap PO SCH ×3 (09:37→20:19)
[2022-12-24] MEDS: Metoprolol Tartrate 25 MG Tab PO SCH ×2 (09:37→20:20)
[2022-12-24] MEDS: Clopidogrel 75 MG Tab PO SCH (09:38)
[2022-12-24] MEDS: Pantoprazole 40 MG Tab.CR PO SCH (09:38)
[2022-12-24] MEDS: Gabapentin 600 MG Tab PO SCH ×3 (12:32→20:19)
[2022-12-24] MEDS: Acetaminophen/HYDROcodone 325-10 MG Tab PO SCH ×3 (12:36→20:19)
[2022-12-24] MEDS: amLODIPine 5 MG Tab PO SCH (12:36)
[2022-12-24] MEDS: Cyclobenzaprine 10 MG Tab PO PRN (16:51)
[2022-12-24] MEDS: Mirtazapine 15 MG Tab PO SCH (20:19)
[2022-12-25] MEDS: Heparin Sodium 5,000 Units/ML Vial SUBCUT SCH ×3 (01:51→17:37)
[2022-12-25] MEDS: VANCOmycin 500 MG/100 ML 500 MG in Premix Bag 1 BAG IV SCH ×2 (03:45→15:23)
[2022-12-25] MEDS: Clindamycin Phosphate in D5W 900 MG in Premix Bag 1 BAG IV SCH ×6 (06:34→23:15)
[2022-12-25] MEDS: Formoterol/Mometasone 200-5 MCG 8.8 GM Inhaler IH SCH ×2 (08:07→20:11)
[2022-12-25] MEDS: DULoxetine 30 MG Cap PO SCH (08:28)
[2022-12-25] MEDS: levETIRAcetam 500 MG Tab PO SCH ×2 (08:28→20:23)
[2022-12-25] MEDS: Aspirin 81 MG Tab.EC PO SCH (08:29)
[2022-12-25] MEDS: Potassium Chloride 20 MEQ Tab.ER PO SCH ×2 (08:29→20:23)
[2022-12-25] MEDS: Clopidogrel 75 MG Tab PO SCH (08:29)
[2022-12-25] MEDS: Rosuvastatin 10 MG Tab PO SCH (08:29)
[2022-12-25] MEDS: Pantoprazole 40 MG Tab.CR PO SCH (08:29)
[2022-12-25] MEDS: Gabapentin 600 MG Tab PO SCH ×3 (08:29→20:22)
[2022-12-25] MEDS: Metoprolol Tartrate 25 MG Tab PO SCH ×2 (08:30→20:22)
[2022-12-25] MEDS: Baclofen 10 MG Tab PO SCH ×4 (08:30→20:22)
[2022-12-25] MEDS: Gabapentin 100 MG Cap PO SCH ×3 (08:30→20:23)
[2022-12-25] MEDS: Acetaminophen/HYDROcodone 325-10 MG Tab PO SCH ×3 (08:30→20:23)
[2022-12-25] MEDS: amLODIPine 5 MG Tab PO SCH (08:30)
[2022-12-25] MEDS: Mirtazapine 15 MG Tab PO SCH (20:23)
[2022-12-26] MEDS: Heparin Sodium 5,000 Units/ML Vial SUBCUT SCH ×3 (02:00→18:02)
[2022-12-26] MEDS: VANCOmycin 500 MG/100 ML 500 MG in Premix Bag 1 BAG IV SCH ×2 (04:11→16:57)
[2022-12-26] MEDS: Clindamycin Phosphate in D5W 900 MG in Premix Bag 1 BAG IV SCH ×6 (06:47→22:36)
[2022-12-26] MEDS: Rosuvastatin 10 MG Tab PO SCH (08:49)
[2022-12-26] MEDS: DULoxetine 30 MG Cap PO SCH (08:49)
[2022-12-26] MEDS: levETIRAcetam 500 MG Tab PO SCH ×2 (08:49→20:17)
[2022-12-26] MEDS: Potassium Chloride 20 MEQ Tab.ER PO SCH ×2 (08:49→20:17)
[2022-12-26] MEDS: amLODIPine 5 MG Tab PO SCH (08:49)
[2022-12-26] MEDS: Baclofen 10 MG Tab PO SCH ×4 (08:50→20:16)
[2022-12-26] MEDS: Aspirin 81 MG Tab.EC PO SCH (08:50)
[2022-12-26] MEDS: Metoprolol Tartrate 25 MG Tab PO SCH ×2 (08:50→20:17)
[2022-12-26] MEDS: Acetaminophen/HYDROcodone 325-10 MG Tab PO SCH ×3 (08:50→20:17)
[2022-12-26] MEDS: Gabapentin 100 MG Cap PO SCH ×3 (08:50→20:17)
[2022-12-26] MEDS: Pantoprazole 40 MG Tab.CR PO SCH (08:51)
[2022-12-26] MEDS: Clopidogrel 75 MG Tab PO SCH (08:51)
[2022-12-26] MEDS: Gabapentin 600 MG Tab PO SCH ×3 (08:51→20:18)
[2022-12-26] MEDS: Formoterol/Mometasone 200-5 MCG 8.8 GM Inhaler IH SCH ×2 (09:02→20:26)
[2022-12-26] MEDS: Mirtazapine 15 MG Tab PO SCH (20:16)
[2022-12-27] MEDS: Heparin Sodium 5,000 Units/ML Vial SUBCUT SCH ×4 (02:20→17:35)
[2022-12-27] MEDS: VANCOmycin 500 MG/100 ML 500 MG in Premix Bag 1 BAG IV SCH ×2 (04:33→17:27)
[2022-12-27] MEDS: Clindamycin Phosphate in D5W 900 MG in Premix Bag 1 BAG IV SCH ×2 (06:34)
[2022-12-27] MEDS: Acetaminophen/HYDROcodone 325-10 MG Tab PO SCH (08:11)
[2022-12-27] MEDS: Pantoprazole 40 MG Tab.CR PO SCH (08:12)
[2022-12-27] MEDS: DULoxetine 30 MG Cap PO SCH (08:12)
[2022-12-27] MEDS: amLODIPine 5 MG Tab PO SCH (08:12)
[2022-12-27] MEDS: Aspirin 81 MG Tab.EC PO SCH (08:13)
[2022-12-27] MEDS: levETIRAcetam 500 MG Tab PO SCH ×2 (08:13→21:17)
[2022-12-27] MEDS: Potassium Chloride 20 MEQ Tab.ER PO SCH ×2 (08:13→21:17)
[2022-12-27] MEDS: Baclofen 10 MG Tab PO SCH ×4 (08:13→21:17)
[2022-12-27] MEDS: Gabapentin 600 MG Tab PO SCH ×3 (08:13→21:15)
[2022-12-27] MEDS: Gabapentin 100 MG Cap PO SCH ×3 (08:13→21:16)
[2022-12-27] MEDS: Clopidogrel 75 MG Tab PO SCH (08:14)
[2022-12-27] MEDS: Metoprolol Tartrate 25 MG Tab PO SCH ×2 (08:14→21:17)
[2022-12-27] MEDS: Rosuvastatin 10 MG Tab PO SCH (08:16)
[2022-12-27] MEDS: Formoterol/Mometasone 200-5 MCG 8.8 GM Inhaler IH SCH ×2 (08:39→20:09)
[2022-12-27] MEDS ORDERED: Loratadine 10 MG Tab PO PRN (09:37)
[2022-12-27] MEDS: Acetaminophen/HYDROcodone 325-10 MG Tab PO PRN ×2 (17:34→21:16)
[2022-12-27] MEDS: Mirtazapine 15 MG Tab PO SCH (21:16)
[2022-12-28] MEDS: Heparin Sodium 5,000 Units/ML Vial SUBCUT SCH ×3 (03:57→20:43)
[2022-12-28] MEDS: VANCOmycin 500 MG/100 ML 500 MG in Premix Bag 1 BAG IV SCH ×2 (03:57→16:43)
[2022-12-28] MEDS: Pantoprazole 40 MG Tab.CR PO SCH (08:28)
[2022-12-28] MEDS: Rosuvastatin 10 MG Tab PO SCH (08:28)
[2022-12-28] MEDS: Acetaminophen/HYDROcodone 325-10 MG Tab PO PRN ×3 (08:28→20:44)
[2022-12-28] MEDS: Baclofen 10 MG Tab PO SCH ×4 (08:28→20:45)
[2022-12-28] MEDS: DULoxetine 30 MG Cap PO SCH (08:28)
[2022-12-28] MEDS: Gabapentin 100 MG Cap PO SCH ×3 (08:29→20:45)
[2022-12-28] MEDS: Metoprolol Tartrate 25 MG Tab PO SCH ×2 (08:30→20:46)
[2022-12-28] MEDS: Gabapentin 600 MG Tab PO SCH ×3 (08:30→20:45)
[2022-12-28] MEDS: amLODIPine 5 MG Tab PO SCH (08:30)
[2022-12-28] MEDS: Aspirin 81 MG Tab.EC PO SCH (08:30)
[2022-12-28] MEDS: Iron Polysaccharides Complex 150 MG Cap PO SCH (08:31)
[2022-12-28] MEDS: levETIRAcetam 500 MG Tab PO SCH ×2 (08:31→20:44)
[2022-12-28] MEDS: Clopidogrel 75 MG Tab PO SCH (08:31)
[2022-12-28] MEDS: Potassium Chloride 20 MEQ Tab.ER PO SCH ×2 (08:31→20:45)
[2022-12-28] MEDS: Formoterol/Mometasone 200-5 MCG 8.8 GM Inhaler IH SCH ×2 (09:43→20:14)
[2022-12-28] MEDS: Mirtazapine 15 MG Tab PO SCH (20:43)
[2022-12-29] MEDS: VANCOmycin 500 MG/100 ML 500 MG in Premix Bag 1 BAG IV SCH ×2 (04:34→16:38)
[2022-12-29] MEDS: Heparin Sodium 5,000 Units/ML Vial SUBCUT SCH ×3 (04:34→18:04)
[2022-12-29] MEDS: Formoterol/Mometasone 200-5 MCG 8.8 GM Inhaler IH SCH ×2 (09:44→20:15)
[2022-12-29] MEDS: Acetaminophen/HYDROcodone 325-10 MG Tab PO PRN ×3 (10:00→20:42)
[2022-12-29] MEDS: Rosuvastatin 10 MG Tab PO SCH (10:00)
[2022-12-29] MEDS: Metoprolol Tartrate 25 MG Tab PO SCH ×2 (10:01→20:42)
[2022-12-29] MEDS: Gabapentin 100 MG Cap PO SCH ×3 (10:01→20:41)
[2022-12-29] MEDS: DULoxetine 30 MG Cap PO SCH (10:01)
[2022-12-29] MEDS: Gabapentin 600 MG Tab PO SCH ×3 (10:01→20:41)
[2022-12-29] MEDS: Iron Polysaccharides Complex 150 MG Cap PO SCH (10:02)
[2022-12-29] MEDS: amLODIPine 5 MG Tab PO SCH (10:02)
[2022-12-29] MEDS: levETIRAcetam 500 MG Tab PO SCH ×2 (10:02→20:41)
[2022-12-29] MEDS: Potassium Chloride 20 MEQ Tab.ER PO SCH ×2 (10:02→20:40)
[2022-12-29] MEDS: Aspirin 81 MG Tab.EC PO SCH (10:02)
[2022-12-29] MEDS: Clopidogrel 75 MG Tab PO SCH (10:02)
[2022-12-29] MEDS: Pantoprazole 40 MG Tab.CR PO SCH (10:03)
[2022-12-29] MEDS: Baclofen 10 MG Tab PO SCH ×4 (10:03→20:42)
[2022-12-29] MEDS ORDERED: Furosemide 20 MG/2 ML VIAL IVPUSH ONE (10:45)
[2022-12-29] MEDS: guaiFENesin 600 MG Tab.ER PO SCH ×2 (11:40→20:42)
[2022-12-29] MEDS: Mirtazapine 15 MG Tab PO SCH (20:41)
[2022-12-30] MEDS: Heparin Sodium 5,000 Units/ML Vial SUBCUT SCH ×2 (04:38→09:38)
[2022-12-30] MEDS: VANCOmycin 500 MG/100 ML 500 MG in Premix Bag 1 BAG IV SCH (04:39)
[2022-12-30 08:11] VITALS: BP 146/88
[2022-12-30] MEDS: Formoterol/Mometasone 200-5 MCG 8.8 GM Inhaler IH SCH (08:20)
[2022-12-30] MEDS: amLODIPine 5 MG Tab PO SCH (09:38)
[2022-12-30] MEDS: DULoxetine 30 MG Cap PO SCH (09:38)
[2022-12-30] MEDS: Potassium Chloride 20 MEQ Tab.ER PO SCH (09:38)
[2022-12-30] MEDS: levETIRAcetam 500 MG Tab PO SCH (09:39)
[2022-12-30] MEDS: Rosuvastatin 10 MG Tab PO SCH (09:39)
[2022-12-30] MEDS: Pantoprazole 40 MG Tab.CR PO SCH (09:39)
[2022-12-30] MEDS: Clopidogrel 75 MG Tab PO SCH (09:39)
[2022-12-30] MEDS: Gabapentin 100 MG Cap PO SCH (09:39)
[2022-12-30] MEDS: Iron Polysaccharides Complex 150 MG Cap PO SCH (09:39)
[2022-12-30] MEDS: Baclofen 10 MG Tab PO SCH (09:39)
[2022-12-30] MEDS: guaiFENesin 600 MG Tab.ER PO SCH (09:39)
[2022-12-30] MEDS: Metoprolol Tartrate 25 MG Tab PO SCH (09:41)
[2022-12-30 09:42] VITALS: PULSE 78
[2022-12-30] MEDS: Aspirin 81 MG Tab.EC PO SCH (09:42)
[2022-12-30] MEDS: Gabapentin 600 MG Tab PO SCH (09:42)
== END 2022-12-30 10:39 | DRG 565 ==
LOC: JD.ED 15:49 → JD.ICU 18:24 → JD.MS 12-15 11:04
PROVIDERS: ADMIT Internal Medicine; ATTEND Internal Medicine
PROC: 02HV33Z Insertion of Infusion Device into Superior Vena Cava, Percutaneous Approach (ICD-10-PCS; principal; 2022-12-25)
DX: T83.511A Infection and inflammatory reaction due to indwelling urethral catheter, initial encounter (principal); T87.89 Other complications of amputation stump; R40.2421 Glasgow coma scale score 9-12, in the field [EMT or ambulance]; E86.0 Dehydration; S32.010A Wedge compression fracture of first lumbar vertebra, initial encounter for closed fracture; S20.319A Abrasion of unspecified front wall of thorax, initial encounter; I70.5 Atherosclerosis of nonautologous biological bypass graft(s) of the extremities; M86.9 Osteomyelitis, unspecified; L97.929 Non-pressure chronic ulcer of unspecified part of left lower leg with unspecified severity; L97.919 Non-pressure chronic ulcer of unspecified part of right lower leg with unspecified severity; N39.0 Urinary tract infection, site not specified; J44.9 Chronic obstructive pulmonary disease, unspecified; M54.41 Lumbago with sciatica, right side; Z96.0 Presence of urogenital implants; Z20.822 Contact with and (suspected) exposure to COVID-19; Z79.02 Long term (current) use of antithrombotics/antiplatelets; G89.29 Other chronic pain; R62.7 Adult failure to thrive; E78.5 Hyperlipidemia, unspecified; T83.511D Infection and inflammatory reaction due to indwelling urethral catheter, subsequent encounter; D63.8 Anemia in other chronic diseases classified elsewhere; Z89.511 Acquired absence of right leg below knee; W19.XXXA Unspecified fall, initial encounter; I10 Essential (primary) hypertension; M47.812 Spondylosis without myelopathy or radiculopathy, cervical region; R56.9 Unspecified convulsions; E78.00 Pure hypercholesterolemia, unspecified; K21.9 Gastro-esophageal reflux disease without esophagitis; R32 Unspecified urinary incontinence; F32.A Depression, unspecified; Z86.14 Personal history of Methicillin resistant Staphylococcus aureus infection; Z95.5 Presence of coronary angioplasty implant and graft; Z86.73 Personal history of transient ischemic attack (TIA), and cerebral infarction without residual deficits; Z88.0 Allergy status to penicillin; Z88.2 Allergy status to sulfonamides; Z91.018 Allergy to other foods; Z79.82 Long term (current) use of aspirin; Z79.899 Other long term (current) drug therapy; Z86.718 Personal history of other venous thrombosis and embolism; Z79.01 Long term (current) use of anticoagulants; Z87.01 Personal history of pneumonia (recurrent); Z90.710 Acquired absence of both cervix and uterus; Z85.820 Personal history of malignant melanoma of skin
CPT/HCPCS: 0240U; 36415; 36569; 51702; 70450; 71045; 71260; 72125; 73560; 73610; 73702; 74177; 80048; 80053; 80202; 81001; 82728; 82947; 83540; 83605; 83735; 85007; 85025; 85027; 85610; 86140; 87040; 94640; 94667; 94668; 94760; 94761; 96361; 96365; 96372; 97110; 97162; 97530; 97597; 99285; 97545-GP; 99223; 99232; 99233; 99239; A9270-GY; C1751; J0696; J1644; J1940; J2270; J3370; J3475; J3490; J7030; J7620-GY; Q9967; U0002